=== PATIENT | female | born 1995 | race Caucasian/White ===

== ENCOUNTER → 2020-09-10 15:35 | Outpatient (CLI) | payer BC, SELFPAY ==
--- NOTE | ~2020-09-10 | US_ITS ---
EXAMINATION: US transvaginal DATE: 09/10/2020 15:56 INDICATION: Abnormal uterine bleeding TECHNIQUE: Multiple endovaginal sonographic images of the pelvis were obtained. COMPARISON: None. FINDINGS: The uterus measures 6.6 x 4.1 x 4.8 cm. The endometrial complex measures 7 mm in thickness. The righ t ovary measures 3.5 x 3.4 x 2.2 cm. The left ovary measures 3.4 x 2.0 x 2.7 cm. Several subcentimete r anechoic follicles in both ovaries. There is normal vascular flow in the ovaries. There is no free fluid in the pelvis. IMPRESSION: 1. Several subcentimeter anechoic cysts/follicles in both ovaries suggesting possibility of polycysti c ovarian disease. Reviewed, dictated and finalized at location A. IMPRESSION: 1. Several subcentimeter anechoic cysts/follicles in both ovaries suggesting po ssibility of polycystic ovarian disease.
== END ==
PROVIDERS: Visit Provider Nurse Practitioner
DX: N93.8 Other specified abnormal uterine and vaginal bleeding (principal)
CPT/HCPCS: 76830

== ENCOUNTER → 2021-09-15 13:03 | Outpatient (CLI) | payer BC, SELFPAY ==
--- NOTE | ~2021-09-15 | US_ITS ---
US breast LT complete INDICATION: Palpable left breast lump TECHNIQUE: Dedicated complete left breast ultrasound including all 4 quadrants in the subareolar loca tion COMPARISON: No prior studies for comparison. FINDINGS: The left breast is composed of normal heterogeneous echotexture without focal solid or cyst ic mass. IMPRESSION: 1: Normal left breast ultrasound. BI-RADS CATEGORY 1 - NEGATIVE Reviewed, dictated and finalized at location A.
== END ==
PROVIDERS: PCP Physician Assistant; Visit Provider Physician Assistant
DX: N63.20 Unspecified lump in the left breast, unspecified quadrant (principal)
CPT/HCPCS: 76641

== ENCOUNTER 2024-05-23 05:40 | Emergency (ER) | payer SELFPAY ==
[2024-05-23 05:47] VITALS: BP 164/114; PULSE 107; RESP 18; TEMP 36.5; O2SAT 97
--- NOTE | 2024-05-23 05:51 | ECG_ITS ---
Test Date: 2024-05-23 05:58:34 Measurements Intervals [place] Rate: 99 P: 25 MI: 160 QRS: 22 QRSD: 70 T: 37 QT: 305 QTc: 393 Interpretive Statements SINUS RHYTHM No previous ECG available for comparison Electronically Signed On 05-26-2024 14:55:32 SENIOR PROCUREMENT MANAGER by Sam Shannon M.D.
[2024-05-23 07:19] VITALS: BP 144/95; PULSE 99; RESP 16; TEMP 36.4; O2SAT 99
--- NOTE | 2024-05-23 08:28 | PC.NURSE ---
Pt came up to intake desk stating her pain is gone and she is going to leave. States she will return if has worsening symptoms. Exits ED in NAD.
--- OUTSIDE RECORDS SUMMARY | 2024-05-30 08:28 | XMS_ITS | Encounter Summary ---
Author Organization [facility] Address [address] [place] [address]. [place], [place] [id number] [place] [id number] Care Team Providers Care Drapery Hanger Name Role Phone None, Provider Primary Care Provider Unavaila ble Encounter Details Date Type Department Care Team (Late st Contact Info) Description 04/12/2016 Abstract [facility] [address] [place] [address] Alexi Shepherd, DO [address] [place] [address] [address] Social History Tobacco Use Types Packs/Day Years Used Date Smoking Tobacco: Never Assessed Comments Unknown Sex and Gender Information Value Date Recorded Sex Assigned at Not on file Legal Sex Female 7:01 AM CDT Gender Identity Not on file Sexual Orientation Not on file documented as of this encounter Plan of Treatment Not on file documented as of this encounter Visit Diagnoses Not on filedocumented in this encounter Care Teams Drapery Hanger Relationship Specialty Start Date End Date None, Provider, PCP - General 02/13/19 documented as of this encounter
--- OUTSIDE RECORDS SUMMARY | 2024-05-30 08:28 | XMS_ITS | Encounter Summary ---
Author Organization [facility] Address [address] [place] [address]. [place] [address] Care Team Providers Care Field Talent Qualification Specialist Name Role Phone None, Provider Primary Care Provider Unavaila ble Encounter Details Date Type Department Care Team (Latest Contact Info) Description 09/14/2015 Abstract [facility] , Generic Conversion, Social History Tobacco Use Types Packs/Day Years Used Date Smoking Tobacco: Never Assessed Comments Unknown Sex and Gender Information Value Date Recorded Sex Assigned at Not on file Legal Sex Female 7:01 AM CDT Gender Identity Not on file Sexual Orientation Not on file documented as of this encounter Last Filed Vital Signs Vital Sign Reading Time Taken Comments Blood Pressure 112/66 09/14/2015 1:58 PM CDT Pulse 100 09/14/2015 1:58 PM CDT Temperature - - Respiratory Rate - - Oxygen Saturation - - Inhaled Oxygen Concentration - - Weight 9.979 kg (22 lb) 09/14/2015 1:58 PM CDT Height 165.1 cm (5' 5 ) 09/14/2015 1:58 PM CDT Body Mass Index 3.66 09/14/2015 1:58 PM CDT documented in this encounter Plan of Treatment Not on file documented as of this encounter Visit Diagnoses Not on filedocumented in this encounter Care Teams Field Talent Qualification Specialist Relationship Specialty Start Date End Date None, Provider, PCP - General 02/13/19 documented as of this encounter
--- OUTSIDE RECORDS SUMMARY | 2024-05-30 08:28 | XMS_ITS | Encounter Summary ---
Author Organization [facility] Address [address] [place] [address]. [place], [place] [id number] [place] [address] Care Team Providers Care Development And Housing Director Name Role Phone None, Provider Primary Care Provider Unavaila ble Encounter Details Date Type Department Care Team (Late st Contact Info) Description 03/27/2016 Abstract [facility] [address] [facility] [place], [place] [id number] Mary Lou Perera, MAE [address] [place] [address] Social History Tobacco Use Types Packs/Day Years [...] on filedocumented in this encounter Care Teams Development And Housing Director Relationship Specialty Start Date End Date None, Provider, PCP - General 02/13/19 documented as of this encounter
--- OUTSIDE RECORDS SUMMARY | 2024-05-30 08:28 | XMS_ITS | Referral Summary ---
Author Organization [facility] Address [address] [place] [address] Care Team Providers Care Call Worker Person Name Role Phone Unavailable Primary Care Provider Unavailabl e Source Comments [facility],non-owned Affiliates and Associated Physician Practices is amultiple site organization consisting of ambulatory clinics and hospital sitesin [place], [place], [place] and [place]. This disclosure is being madepursuant to the Care Everywhere program and may not contain all information available regarding this patient. Last updated 18.[facility] Million[facility]1 Allergies Active Allergy Reactions Criticality Noted Date Comments Food 01/31/2016 almonds Active Problems No known active problems Social History Tobacco Use Types Packs/Day Years Used Date Smoking Tobacco: Never Alcohol Use Standard Drinks/Week Comments No 0 (1 standard drink = 0.6 oz pur e alcohol) Sex and Gender Information Value Date Recorded Sex Assigned at Not on file Gender Identity Not on file Sexual Orientation Not on file Last Filed Vital Signs Vital Sign Reading Time Taken Comments Blood Pressure 121/77 02/01/2016 2:43 PM CDT Pulse 97 02/01/2016 2:43 PM CDT Temperature 36.8 ??C (98.3 ??F) 02/01/2016 4:46 PM CD T Respiratory Rate 16 02/01/2016 4:46 PM CDT Oxygen Saturation 98% 02/01/2016 2:43 PM CDT Inhaled Oxygen Concentration - - Weight 93 kg (205 lb) 01/31/2016 7:40 AM CDT Height 162.6 cm (5' 4 ) 01/31/2016 7:40 AM CDT Body Mass Index 35.19 01/31/2016 7:40 AM CDT Functional Status Functional Status Response Date of Assess ment Is person deaf or have serious hearing difficult y? No 01/31/2016 Is person blind or have serious difficulty seein g? No 01/31/2016 Does person have serious dif ficulty walking/climbing stairs? No 01/31/2016 Does person have difficulty dressing/bathing? No 01/31/2016 Does person have difficulty doing errands alone? No 01/31/2016 Cognitive Status Response Date of Assessm ent Does person have difficulty concentrating/remembering/making decisions? No 01/31/2016 Plan of Treatment Not on file
--- OUTSIDE RECORDS SUMMARY | 2024-05-30 08:28 | XMS_ITS | Encounter Summary ---
Author Organization [facility] Address [address] [place] [address]. [place] [address] Care Team Providers Care Health Informatics Advisor Name Role Phone None, Provider Primary Care Provider Arturoa ble Encounter Details Date Type Department Care Team (Latest Contact Info) Description 12/16/2015 Abstract [facility] , Generic Conversion, [...] Sign Reading Time Taken Comments Blood Pressure 126/66 12/16/2015 3:58 PM CDT Pulse - - Temperature - - Respiratory Rate - - Oxygen Saturation - - Inhaled Oxygen Concentration - - Weight 95.7 kg (211 lb) 12/16/2015 3:58 PM CDT Height - - Body Mass Index 35.11 09/14/2015 1:58 PM CDT documented in this encounter Plan of Treatment Not on file documented as of this encounter Visit Diagnoses Not on filedocumented in this encounter Care Teams Health Informatics Advisor Relationship Specialty Start Date End Date None, Provider, PCP - General 02/13/19 documented as of this encounter
--- OUTSIDE RECORDS SUMMARY | 2024-05-30 08:28 | XMS_ITS | Data Portability ---
Author Organization [facility], Main Office Address [address] [place] [address] Assessment No assessment recorded. Plan of Treatment Reminders Order Date Submit Date Provider Last Modified By Organization Details Last Modified Time Details Appointments None recorded. Lab lipid panel, serum 2022 023 [place] [facility], [address], [place], [address], 3 10:21:57 CMP, serum or plasma 2022 023 [facility], [address], [place], [address], 3 10:21:57 Referral None recorded. Procedures None recorded. Surgeries None recorded. Imaging None recorded. Medication Orders atorvastati n 40 mg tablet 2022 023 [facility], [facility], [address], [place], [place], [id number], 3 12:16:52 buspirone 7.5 mg tablet 2022 023 [facility], [facility], [address], [place], [place], [id number], 3 12:16:47 Patient TargetsNo targets recorded. Patient InstructionsNo instructions recorded. Reason for Referral None Reported. Results Created Date Observation Date Name Description Value Unit Range Abnormal Flag Note LastModifiedBy Organization Detail LastModifiedTime 09/16/19 09/16/2021 HEMOG LOBIN A1C hemoglobin A1C 5.5 % 4.8-5. 6 Predi abete s: 5.7 - 6.4 Diabe pretty: >6.4 Glyce ja contr ol for adult s with diabe pretty: <7.0 Not Available [facility] ([facility]) [address] [place], [address], 09/16/2021 08:22:57 09/16/1909/16/2021 T4 AND TSH TSH 1.800 uIU/m L 0.450- 4.500 Not Available [facility] ([facility]) [address] [place], [address], 09/16/2021 08:22:56 09/16/1909/16/2021 T4 AND TSH thyroxine (T4) 7.0 ug/dL 4.5-12 .0 Not Available [facility] ([facility]) [address] [place], [address], 09/16/2021 08:22:56 09/16/19 22 09/16/2021 CMP14 glucose 71 mg/dL 65-99 Not Availabl e [facility] ([facility]) [address] [place], [address], 09/16/2021 08:22:56 09/16/1909/16/2021 CMP14 BUN 12 mg/dL 6-20 Not Available [facility] ([facility]) [address] [place], [address], 09/16/2021 08:22:56 09/16/1909/16/2021 CMP14 creatinine 0.73 mg/dL 0.57-1 .00 Not Available [facility] ([facility]) [address] [place], [address], 09/16/2021 08:22:56 09/16/19 22 09/16/2021 CMP14 eGFR 116 mL/mi n/1.7 3 >59 Not Available [facility] ([facility]) [address] [facility] [place], [address], 09/16/2021 08:22:56 09/16/19 22 09/16/2021 CMP14 BUN/creatini ne ratio 16 9-23 Not Available [facility] ([facility]) [address] [facility] [place], [address], 09/16/2021 08:22:56 09/16/19 22 09/16/2021 CMP14 sodium 139 mmol/ L 134-14 4 Not Available [facility] ([facility]) [address] [facility] [place], [address], 09/16/2021 08:22:56 09/16/19 22 09/16/2021 CMP14 potassium 4.3 mmol/ L 3.5-5. 2 Not Available [facility] ([facility]) [address] [facility] [place], [address], 09/16/2021 08:22:56 09/16/19 22 09/16/2021 CMP14 chloride 102 mmol/ L 96-106 Not Available [facility] ([facility]) [address] [facility] [place], [address], 09/16/2021 08:22:56 09/16/19 22 09/16/2021 CMP14 carbon dioxide, total 22 mmol/ L 20-29 Not Available [facility] ([facility]) [address] [facility] [place], [address], 09/16/2021 08:22:56 09/16/19 22 09/16/2021 CMP14 calcium 9.9 mg/dL 8.7-10 .2 Not Available [facility] ([facility]) [address] [facility] [place], [address], 09/16/2021 08:22:56 09/16/19 22 09/16/2021 CMP14 protein, total 6.9 g/dL 6.0-8. 5 Not Available [facility] ([facility]) [address] [facility], [place], [address], 09/16/2021 08:22:56 09/16/19 22 09/16/2021 CMP14 albumin 4.6 g/dL 3.9-5. 0 Not Available [facility] ([facility]) [address] [facility] [place], [address], 09/16/2021 08:22:56 09/16/19 22 09/16/2021 CMP14 globulin, total 2.3 g/dL 1.5-4. 5 Not Available [facility] ([facility]) [address] [facility], [place], [address], 09/16/2021 08:22:56 09/16/19 22 09/16/2021 CMP14 A/G ratio 2.0 1.2-2. 2 Not Available [facility] ([facility]) [address] [facility] [place], [address], 09/16/2021 08:22:56 09/16/19 22 09/16/2021 CMP14 bilirubin, total <0.2 mg/dL 0.0-1. 2 Not Available [facility] ([facility]) [address] [facility], [place], [address], 09/16/2021 08:22:56 09/16/19 22 09/16/2021 CMP14 alkaline phosphatase 87 IU/L 44-121 Not Available [facility]) [address] [facility], [place], [address], 09/16/2021 08:22:56 09/16/19 22 09/16/2021 CMP14 AST (SGOT) 23 IU/L 0-40 Not Avail able [facility] ([facility]) [address] [facility] [place], [address], 09/16/2021 08:22:56 09/16/19 22 09/16/2021 CMP14 ALT (SGPT) 22 IU/L 0-32 Not Avail able [facility] ([facility]) [address] [place], [address], 09/16/2021 08:22:56 09/16/19 22 09/16/2021 CBC WITH DIFFE RENTI AL/PL ATELE T hemoglobin 12.7 g/dL 11.1-1 5.9 Not Available [facility] ([facility]) [address] [facility], [place], [address], 09/16/2021 08:22:55 09/16/19 22 09/16/2021 CBC WITH DIFFE RENTI AL/PL ATELE T WBC 9.9 x10e3 /uL 3.4-10 .8 Not Available [facility] ([facility]) [address] [facility], [place], [address], 09/16/2021 08:22:55 09/16/19 22 09/16/2021 CBC WITH DIFFE RENTI AL/PL ATELE T RBC 5.08 x10e6 /uL 3.77-5 .28 Not Available [facility] ([facility]) [address] [place], [address], 09/16/2021 08:22:55 09/16/19 22 09/16/2021 CBC WITH DIFFE RENTI AL/PL ATELE T hematocrit 39.0 % 34.0-4 6.6 Not Available [facility] ([facility]) [address] [place], [address], 09/16/2021 08:22:55 09/16/19 22 09/16/2021 CBC WITH DIFFE RENTI AL/PL ATELE T MCV 77 fL 79-97 below low normal Not Available [facility] ([facility]) [address] [place], [address], 09/16/2021 08:22:55 09/16/19 22 09/16/2021 CBC WITH DIFFE RENTI AL/PL ATELE T MCH 25.0 pg 26.6-3 3.0 below low normal Not Available [facility] ([facility]) [address] [place], [address], 09/16/2021 08:22:55 09/16/19 22 09/16/2021 CBC WITH DIFFE RENTI AL/PL ATELE T MCHC 32.6 g/dL 31.5-3 5.7 Not Available [facility] ([facility]) [address] [place], [address], 09/16/2021 08:22:55 09/16/19 22 09/16/2021 CBC WITH DIFFE RENTI AL/PL ATELE T RDW 14.9 % 11.7-1 5.4 Not Available [facility] ([facility]) [address] [place], [address], 09/16/2021 08:22:55 09/16/19 22 09/16/2021 CBC WITH DIFFE RENTI AL/PL ATELE T platelets 405 x10e3 /uL 150-45 0 Not Available [facility] ([facility]) [address] [place], [address], 09/16/2021 08:22:55 09/16/19 22 09/16/2021 CBC WITH DIFFE RENTI AL/PL ATELE T neutrophils 66 % not estab. Not Available [facility] ([facility]) [address] [place], [address], 09/16/2021 08:22:55 09/16/19 22 09/16/2021 CBC WITH DIFFE RENTI AL/PL ATELE T lymphs 27 % not estab. Not Available [facility] ([facility]) [address] [place], [address], 09/16/2021 08:22:55 09/16/19 22 09/16/2021 CBC WITH DIFFE RENTI AL/PL ATELE T monocytes 5 % not estab. Not Available [facility] ([facility]) [address] [facility], [place], [address], 09/16/2021 08:22:55 09/16/19 22 09/16/2021 CBC WITH DIFFE RENTI AL/PL ATELE T eos 1 % not estab. Not Available [facility] ([facility]) [address] [facility], [place], [address], 09/16/2021 08:22:55 09/16/19 22 09/16/2021 CBC WITH DIFFE RENTI AL/PL ATELE T basos 0 % not estab. Not Available [facility] ([facility]) [address] [facility], [place], [address], 09/16/2021 08:22:55 09/16/19 22 09/16/2021 CBC WITH DIFFE RENTI AL/PL ATELE T immature cells schedule announcer Not Available [facility] ([facility]) [address] [place], [address], 09/16/2021 08:22:55 09/16/19 22 09/16/2021 CBC WITH DIFFE RENTI AL/PL ATELE T neutrophils (absolute) 6.5 x10e3 /uL 1.4-7. 0 Not Available [facility] ([facility]) [address] [place], [address], 09/16/2021 08:22:55 09/16/19 22 09/16/2021 CBC WITH DIFFE RENTI AL/PL ATELE T lymphs (absolute) 2.6 x10e3 /uL 0.7-3. 1 Not Available [facility] ([facility]) [address] [place], [address], 09/16/2021 08:22:55 09/16/19 22 09/16/2021 CBC WITH DIFFE RENTI AL/PL ATELE T monocytes(ab solute) 0.5 x10e3 /uL 0.1-0. 9 Not Available [facility] ([facility]) [address] [facility], [place], [address], 09/16/2021 08:22:55 09/16/19 22 09/16/2021 CBC WITH DIFFE RENTI AL/PL ATELE T eos (absolute) 0.1 x10e3 /uL 0.0-0. 4 Not Available [facility] ([facility]) [address] [facility], [place], [address], 09/16/2021 08:22:55 09/16/19 22 09/16/2021 CBC WITH DIFFE RENTI AL/PL ATELE T baso (absolute) 0.0 x10e3 /uL 0.0-0. 2 Not Available [facility] ([facility]) [address] [facility], [place], [address], 09/16/2021 08:22:55 09/16/19 22 09/16/2021 CBC WITH DIFFE RENTI AL/PL ATELE T immature granulocytes 1 % not estab. Not Available [facility] ([facility]) [address] [facility], [place], [address], 09/16/2021 08:22:55 09/16/19 22 09/16/2021 CBC WITH DIFFE RENTI AL/PL ATELE T immature grans (abs) 0.1 x10e3 /uL 0.0-0. 1 Not Available [facility] ([facility]) [address] [facility], [place], [address], 09/16/2021 08:22:55 09/16/19 22 09/16/2021 CBC WITH DIFFE RENTI AL/PL ATELE T NRBC schedule announcer Not Available [facility] ([facility]) [address] [facility], [place], [address], 09/16/2021 08:22:55 09/16/19 22 09/16/2021 CBC WITH DIFFE RENTI AL/PL ATELE T hematology comments: schedule announcer Not Available [facility] ([facility]) [address] [facility], [place], [address], 09/16/2021 08:22:55 09/16/19 22 09/16/2021 LP+LD L DIREC T+DLD L/HDL RATIO HDL cholesterol 40 mg/dL >39 Not Available [facility] ([facility]) [address] [place], [address], 09/16/2021 08:22:54 09/16/19 22 09/16/2021 LP+LD L DIREC T+DLD L/HDL RATIO cholesterol, total 276 mg/dL 100-19 9 above high normal Not Available [facility] ([facility]) [address] [place], [address], 09/16/2021 08:22:54 09/16/19 22 09/16/2021 LP+LD L DIREC T+DLD L/HDL RATIO triglyceride s 188 mg/dL 0-149 above high normal Not Available [facility] ([facility]) [address] [place], [address], 09/16/2021 08:22:54 09/16/19 22 09/16/2021 LP+LD L DIREC T+DLD L/HDL RATIO VLDL cholesterol danica 36 mg/dL 5-40 Not Available [facility] ([facility]) [address] [place], [address], 09/16/2021 08:22:54 09/16/19 22 09/16/2021 LP+LD L DIREC T+DLD L/HDL RATIO LDL chol calc ([facility]) 200 mg/dL 0-99 above high normal Not Available [facility] ([facility]) [address] [place], [address], 09/16/2021 08:22:54 09/16/19 22 09/16/2021 LP+LD L DIREC T+DLD L/HDL RATIO comment: commen t Possi ble Famil ial Hyper jessica stero lemia . FH shoul d be suspe cted when fasti ng LDL jessica stero l is above 189 mg/dL or non-H DL jessica stero l is above 219 mg/dL . A famil y histo ry of high jessica stero l and heart disea se in 1st degre e relat scotty fabio meza be colle cted. J Clin Lipid ol 2011; 5:133 -140 Not Available [facility] ([facility]) [address] [facility], [place], [address], 09/16/2021 08:22:54 09/16/19 22 09/16/2021 LP+LD L DIREC T+DLD L/HDL RATIO LDL chol. (direct) 195 mg/dL 0-99 above high normal Not Available [facility] ([facility]) [address] [facility], [place], [address], 09/16/2021 08:22:54 09/16/19 22 09/16/2021 LP+LD L DIREC T+DLD L/HDL RATIO LDL (dir.)/HDL ratio 4.9 ratio 0.0-3. 2 above high normal LDL/H DL Men Women 1/2 Avg.R isk 1.0 1.5 Avg.R isk 3.6 3.2 2X Avg.R isk 6.3 5.0 3X Avg.R isk 8.0 6.1 Not Available [facility] ([facility]) [address] [place], [address], 09/16/2021 08:22:54 09/21/1909/15/2021 US, bret schuster No observ ation record ed. [id number] [facility] [address], [place], [address], 07/19/2022 23:38:21 Result Notes None recorded. Problems Name Problem SNOMED Code Status Onset Date Resolution Date Notes Provider Name and Address Organization Details Recorded Time Generalized anxiety disorder 35130797 Active 2021 Not Available [facility] 03/01/202 3 23:37:05 Mixed hyperlipidemi a 491335713 Active 2021 Not Available [facility] 3 23:37:05 Dog bite of lower leg 251484984 Active 2021 Not Available [facility] 3 23:37:05 Candidiasis of skin 51036276 Active 2021 Not Available [facility] 3 23:37:05 Pityriasis versicolor 23886891 Active 2021 Not Available [facility] 3 23:37:05 Breast lump 36503979 Active 2021 Not Available [facility] 3 23:37:05 Streptococcal sore throat 64804557 Active 2022 ELISABET Genao [address] [facility] [address], [place], [address] , [employer] 3 10:41:11 Polycystic ovary syndrome 401498291 Active 2022 ELISABET Genao [address], [place] [address], [place], [address] , [employer] 3 12:01:42 Acute urinary tract infection 155173035 Active 2022 ELISABET Genao [address] [facility] [address], [place], [address] , [employer] 3 16:24:21 Problem Notes None recorded. Procedures Surgical History Date Name Laterality Status Provider Name and Address Organization Details Recorded Time Appendectomy completed Not Available [facility] 23:35:50 Tonsillectomy completed Not Available [facility] 07/19/2022 23:35:50 Imaging Results Imaging Date Name Status LastModified by Organiz [facility] Details LastModified Time 09/15/2021 US, breast, unilateral completed [id number] [facility] [address], [place], [address], 07/19/2022 23:38:21 Procedure Notes None recorded. Medical Equipment None Reported. Allergies Allergen ID Allergen Name Allergen Category Reaction Reaction Severity Criticality Documentation Date Start Date Code Code System Note Provider Name and Address Organization Details Recorded Time 47026 almond allergeni c extract food Not available Not available Not available 07/19/2022 35699 7 RxNorm Not Available [facility] 3 23:38:11 Medications Name Sig Start Date Stop Date Status Note LastModified by Organization Details LastModified Time atorvastati n 40 mg tablet Take 1 tablet every day by oral route. active Not Available Not Available No t Available atorvastati n 20 mg tablet Take 1 tablet every day by oral route at bedtime. 10/31 completed Not Available Not Available Not Available ketoconazol e 2 % shampoo 10/31 completed Not Available Not Available Not Available azithromyci n 250 mg tablet TAKE 2 TABLETS (500 MG) BY ORAL ROUTE ONCE DAILY FOR 1 DAY THEN 1 TABLET (250 MG) BY ORAL ROUTE ONCE DAILY FOR 4 DAYS 10/30 completed Not Available Not Available Not Available ciprofloxac in 500 mg tablet Take 1 tablet every 12 hours by oral route. 05/01 completed Not Available Not Available Not Available erythromyci n 5 mg/gram (0.5 %) eye ointment APPLY 1 CM RIBBON INTO THE LOWER CONJUNCTI TRICIA SAC(S) IN THE AFFECTED EYE(S) BY OPHTHALMI C ROUTE 3 TIMES PER DAY active Not Available Not Available No t Available sertraline 25 mg tablet Take 1 tablet every day by oral route. active Not Available Not Available No t Available buspirone 7.5 mg tablet Take 1 tablet twice a day by oral route. active Not Available Not Available No t Available nystatin 100,000 unit/gram topical powder APPLY TO THE bilateral axilla BY TOPICAL ROUTE 2 TIMES PER DAY PRN 05/01 completed Not Available Not Available Not Available norethindro ne (contracept liborio) 0.35 mg tablet active Not Available Not Available No t Available cefdinir 300 mg capsule 05/01 completed Not Available Not Available Not Available metformin ER 500 mg tablet,exte nded release 24 hr 2 tabs BID active Not Available Not Available No t Available sertraline 50 mg tablet Take 1 tablet every day by oral route. 10/31 completed Not Available Not Available Not Available amoxicillin 875 mg-potassiu m clavulanate 125 mg tablet active Not Available Not Available Not Available Vitals Date Recorded Body mass index (BMI) Body height Oxygen saturation Oxygen saturation in Arterial blood by Pulse oximetry Heart rate Body temperature Body weight Systolic blood pressure Diastolic blood pressure Provider Name and Address Organization Details Last Updated DateTime 1 42.9 kg/m2 165.1 cm 98 % 98 % 100 /min 97.2 [degF] 474189. 11 g 120 mm[Hg] 80 mm[Hg] Not Available [facility] 3 23:36:44 Date Recorded Body mass index (BMI) Body height Oxygen saturation Oxygen saturation in Arterial blood by Pulse oximetry Heart rate Respiratory rate Body temperature Body weight Systolic blood pressure Diastolic blood pressure Provider Name and Address Organization Details Last Updated DateTime 2 42 kg/m2 165.1 cm 98 % 98 % 96 /min 16 /min 97.2 [degF] 188439. 71 g 118 mm[Hg] 78 mm[Hg] Not Available [facility] 3 23:36:44 Date Recorded Body mass index (BMI) Body height Oxygen saturation Oxygen saturation in Arterial blood by Pulse oximetry Heart rate Body temperature Body weight Systolic blood pressure Diastolic blood pressure Provider Name and Address Organization Details Last Updated DateTime 2 40.3 kg/m2 165.1 cm 97 % 97 % 79.99 /min 97.6 [degF] 291499. 35 g 120 mm[Hg] 80 mm[Hg] Not Available [facility] 3 23:36:44 Date Recorded Body height Body temperature Body mass index (BMI) Body weight Respiratory rate Oxygen saturation Oxygen saturation in Arterial blood by Pulse oximetry Heart rate Systolic blood pressure Diastolic blood pressure Provider Name and Address Organization Details Last Updated DateTime 3 165.1 cm 97.9 [degF] 42.6 kg/m2 681914. 65 g 16 /min 97 % 97 % 73 /min 128 mm[Hg] 78 mm[Hg] AUGUSTO Dos Santos [place] - [facility] [place] [employer] [facility] 3 11:57:02 Social History Question Answer Notes LastModified by Organizat ion Details LastModified Time Tobacco Smoking Status Never Smoker Not Available [facility] 07/19/2022 23:35:39 Do You Have An Advance Directive? No [id number] 2021 Information not available 07/19/2022 What Is Your Level Of Alcohol Consumption? Occasional [id number] Information not available 07/19/2022 If You Are , What Was Your Level Of Alcohol Consumption Prior To ? None [id number] Information not available 07/19/2022 Do You Wear A Helmet When Biking? Yes [id number].123314 5481 Information not available 07/19/2022 What Is Your Level Of Caffeine Consumption? Moderate [id number].[id number] 4433 Information not available 07/19/2022 In The 14 Days Before Symptom Onset, Have You Had Close Contact With A Laboratory-confir med COVID-19 While That Case Was Ill? No [id number].[id number] 7538 Information not available 07/19/2022 In The 14 Days Before Symptom Onset, Have You Had Close Contact With A Person Who Is Under Investigation For COVID-19 While That Person Was Ill? No [id number] 0435 Information not available 07/19/2022 Are You Currently Employed? Yes [email or web address] Information not available 08/07/2022 What Type Of Diet Are You Following? REGULAR [id number].[id number] 0836 Information not available 07/19/2022 What Is The Highest Grade Or Level Of School You Have Completed Or The Highest Degree You Have Received? [id number].995875 6502 Information not available 07/19/2022 What Is Your Occupation? Self Employed MIGRATION.091449 9972 Information not available 07/19/2022 Have There Been Any Changes To Your Family Or Social Situation? Yes [id number].[id number] Information not available 07/19/2022 Are There Any Guns Present In Your Home? No MIGRATION.417035 5447 Information not available 07/19/2022 Do You Use Insect Repellent Routinely? No [id number].[id number] 5627 Information not available 07/19/2022 Do You Have A Medical Power Of Water Jet Operator? No MIGRATION.257329 4044 Information not available 07/19/2022 Have You Ever Been Counseled For Unhealthy Alcohol Use? No MIGRATION.079273 2607 Information not available 07/19/2022 Do You Have Any Pets? Yes MIGRATION.060594 5300 Information not available 07/19/2022 What Is Your Relationship Status? [email or web address] Information not available 10/31/2022 Do You Use Your Seat Belt Or Car Seat Routinely? Yes MIGRATION.332185 8497 Information not available 07/19/2022 Do You Have Smoke And Carbon Monoxide Detectors In Your Home? Yes MIGRATION.489167 7167 Information not available 07/19/2022 Are You Passively Exposed To Smoke? No MIGRATION.880500 5700 Information not available 07/19/2022 Are There Any Smokers In Your House? No MIGRATION.324444 9824 Information not available 07/19/2022 Do You Feel Stressed (tense, Restless, Nervous, Or Anxious, Or Unable To Sleep At Night)? [id number] MIGRATION.342895 5248 Information not available 07/19/2022 Do You Use Any Illicit Or Recreational Drugs? No MIGRATION.546695 9195 Information not available 07/19/2022 Do You Use Sunscreen Routinely? Yes MIGRATION.609339 8543 Information not available 07/19/2022 Has Tobacco Cessation Counseling Been Provided? No MIGRATION.329198 5212 Information not available 07/19/2022 Have You Recently Traveled Abroad? No MIGRATION.093206 4529 Information not available 07/19/2022 Do You Have Any Dietary Restrictions? No MIGRATION.112869 7814 Information not available 07/19/2022 Do You Or Have You Ever Used Any Other Forms Of Tobacco Or Nicotine? No MIGRATION.184035 0710 Information not available 07/19/2022 Sex: Female Functional Status Question Answer Note LastModified by Organizat ion Details LastModified Time What is your exercise level? Moderate walks 4-6 times a week [id number].[id number] 026 Information not available 07/19/2022 Mental Status None recorded. Family History Relationship Description Onset Age of this Age Resolved Age Notes LastModified by Organization Details LastModified Time Brother Hyperlipidem ia [id number] [id number] Not available 07/19/2022 23:35:53 Brother Family history of Allergy [id number] [id number] Not available 07/19/2022 23:35:53 Brother Factor V Leiden mutation MIGRATION.108 [id number] Not available 07/19/2022 23:35:53 Mother Hyperlipidem ia MIGRATION.171 [id number] Not available 07/19/2022 23:35:53 Mother Depressive disorder [id number] [id number] Not available 07/19/2022 23:35:53 Mother History of disorder of vision MIGRATION.199 [id number] Not available 07/19/2022 23:35:53 Unspecified Relation Hyperlipidem ia Patern al grandp arent MIGRATION.946 [id number] Not available 07/19/2022 23:35:53 Unspecified Relation Hyperlipidem ia Matern al grandp arent MIGRATION.086 [id number] Not available 07/19/2022 23:35:53 Unspecified Relation Depressive disorder Matern al grandp arent MIGRATION.724 [id number] Not available 07/19/2022 23:35:53 Unspecified Relation Family history of malignant neoplasm matern al grandp arent MIGRATION.008 [id number] Not available 07/19/2022 23:35:53 Unspecified Relation Diabetes mellitus Patern al grandp arents MIGRATION.295 [id number] Not available 07/19/2022 23:35:53 Father Hypertensive disorder [id number] Not available 07/19/2022 23:35:53 Father Body weight problem [id number] Not available 07/19/2022 23:35:53 Medical History Condition Response SKIN PROBLEMS Y OBESITY Y ANXIETY DISORDER Y DEPRESSION (INCLUDING POST ) Y BOWEL PROBLEMS Y Gynecological History Statement/Question Response Abnormal Pap N Date of Last Mammogram Date of Last Colonoscopy Most Recent Bone Density Date of LMP 01/10/2021 Sexually Active? Y Menses Monthly N Date of Last Pap 09/24/2020 Current Control Method BCPs Obstetrics History GPAL:G 5 P 0 0 4 1 Type Value Induced 2 Spontaneous 2 Living 1 Total 5 Past Encounters Encounter ID Performer Location Encounter Start Date Encounter Closed Date Diagnosis/Indication Diagnosis SNOMED-CT Code Diagnosis ICD10 Code Diagnosis Note [id number] [facility] [address] [place] [address] 02/07/2021 00:00:00 02/16/2021 21:42:09 [id number] [facility] [address] [place] [address] 09/07/2021 00:00:00 09/17/2021 21:55:58 [id number] [facility] [address] [place] [address] 11/24/2021 00:00:00 12/18/2021 19:35:39 [id number] [facility] [address] [place] [address] 10/31/2022 11:50:55 10/31/2022 12:25:30 Mixed hyperlipidemia 337662582 E78.2 start atorvastat in 40mg daily and repeat labs in jan. Generalize d anxiety disorder 11137647 F41.1 start buspar 7.5mg bid. Adult heal th examination 819137171 Z00.01 well exam completed Long-term drug therapy 884113730 Z79.899 Polycystic ovary syndrome 713606337 E28.2 hx noted. Health Concerns Section Related Observation LastModified by Organization Detai ls LastModified Time None Recorded Concern Status LastModified by Organization Details LastModified Time None Recorded Advance Directives Directive N: Payers Encounter Date Sequence Insurance Name Policy Number Policy Mullins Covered Member ID Mullins Member ID Guarantor Name 10/31/2022 1 [facility] [id number] Albert Garcia [id number] Chantale Bharti Garcia Notes Date Note Type Note Provider Name and Address Organization Details Recorded Time 02/08/20 21 text/htm l Adult ADHDReported bypatient.ADHD Quality:unable to concentrate;impulsive;hyperacti ve Timing of Symptoms:more than half the time; worse in the morning; worse in the afternoon ADHD Duration:last 2 years ADHD Context:increased productivity at work; less depression; no financial problems;increased anxiety;unnecessary arguments;ongoing cognitive distortions;unable to set limits with obligations;dysfunction in family ADHD Severity:moderate ADHD Associated Symptoms Inattention:able to pay attention; attention to detail; not bored easily;poorly organized;makes careless mistakes;easily distracted;forgetful;difficulty focusing;daydreaming;easily confused;difficulty processing information;difficulty following instructions ADHD Associated Symptoms Impulsivity:patient;interrupts conversations/activities;blurts out inappropriate comments;shows emotion without restraint ADHD Associated Symptoms Hyperactivity:no difficulty with quiet tasks/activities;fidgets/squirm s;excessive talking;runs/moves in inappropriate situations;constantly in motionAnxiety, Generalized DisorderReported bypatient.Onset/Timing:years Severity:moderate Context:life stressors Associated Symptoms:difficulty concentrating;difficulty controlling worry;excess anxiety;restlessness Not Available [facility] [employer] [facility] 02/16/2021 21:42:09 09/08/19 22 text/htm l Anxiety/DepressionReported bypatient.Quality:symptoms worse in the evening(depression);symptoms worse during the day(anxiety) Severity:denies suicidal ideations; able to maintain relationships;interference with household activities;interference with sleep;interference with work Duration:symptoms lasting over 2 weeks Onset/Timing:still present Context:major life stressors;family problems Modifying Factors:medications as directed Associated Symptoms:denies homicidal ideations; no significant weight gain; no significant weight loss; no visual/auditory hallucinations; no delusions; no shortness of breath; no crying spells; no panic; no isolation; appetite good; energy good; no apathy; maintaining functionality;anxiety;depressio n;insomnia;sleep disturbances Not Available [facility] 09/17/2021 21:55:58 11/25/19 22 text/htm l Anxiety/DepressionReported bypatient.Severity:denies suicidal ideations; able to maintain relationships; does not interfere with activities of daily living Context:no major life stressors Associated Symptoms:denies homicidal ideations; no significant weight gain; no significant weight loss; no visual/auditory hallucinations; no delusions; no shortness of breath; mood good; no anxiety; no crying spells; no panic; no isolation; sleeping well; appetite good; energy good; no apathy; maintaining functionality HyperlipidemiaReported bypatient.Control:usually well controlled; improving; at goal Compliance:compliant; compliant with diet; exercises Complications:no coronary artery disease; no peripheral artery disease; no cardiovascular disease Not Available [facility] [employer] [facility] 12/18/2021 19:35:39 11/01/19 23 text/htm l Anxiety/DepressionReported bypatient.Quality:symptoms worse in the evening Severity:denies suicidal ideations; able to maintain relationships;interference with household activities;interference with sleep;interference with work Duration:symptoms lasting over 2 weeks Onset/Timing:still present Context:major life stressors Modifying Factors:stopped the med. Associated Symptoms:denies homicidal ideations; no significant weight gain; no significant weight loss; no visual/auditory hallucinations; no delusions; no shortness of breathHyperlipidemiaReported bypatient.Duration:chronic Control:usually well controlled Current Therapy:currently taking: (atorvastatin 20mg) Compliance:compliant; compliant with diet;does not exercise Complications:no coronary artery disease; no peripheral artery disease; no cardiovascular disease wellness [facility] [address] [facility] [facility] [address], [place], [address], [facility] [employer] [facility] 11/17/2022 23:01:23 OBGyn Episode No OBEpisode recorded.
--- OUTSIDE RECORDS SUMMARY | 2024-05-30 08:28 | XMS_ITS | Encounter Summary ---
Author Organization [facility] Address [address] [facility] [place] [address] Care Team Providers Care Evaluation Assistant Name Role Phone Unavailable Primary Care Provider Unavailabl e Reason for Visit * Reason Comments Pain Back * Auth/Cert Specialty Diagnoses / Procedures Referred By Kofi t Referred To Contact Referral ID Status Reason Start Date Expiration Date Visits Re quested Visits Authorized [id number] 1 1 Encounter Details Date Type Department Care Team (Latest Contact Info) Description 01/31/2016 6:39 AM CDT - 02/01/2016 4:52 PM CDT Hospital Encounter [facility] [address] [phone] [place] [address] [facility] [address] [place] [address] Obstetrics Discharge Disposition: Home or Self Care Social History Tobacco Use Types Packs/Day Years Used Date Smoking Tobacco: Never Alcohol Use Standard Drinks/Week Comments No 0 (1 standard drink = 0.6 oz pur e alcohol) Comments Yes Sex and Gender Information Value Date Recorded [...] Mass Index 35.19 01/31/2016 7:40 AM CDT documented in this encounter Functional Status Functional Status Response Date of [...] person have difficulty concentrating/remembering/making decisions? No 01/31/2016 documented as of this encounter Discharge Instructions * Discharge Instructions* Moriah Márquez RN - 02/01/2016 4:48 PM CDT UNDELIVERED PATIENT DISCHARGE INSTRUCTIONS CALL YOUR DOCTOR (SEE NUMBER BELOW) ?? If you are less than 37 weeks and have move than 5 contractions an hour. ?? Blurring ofvision or spots before your eyes. ?? Ruptured membranes or leakage of vaginal fluid. ?? May be a steady trickle or large gush ?? May be clear, yellow, pink or green ?? Decreased movement--if your baby has stopped movingor is moving less than it normally does. Do Kick Counts as instructed. ?? Vaginal bleeding--bright red bleeding and/or clots needs medical care immediately. ?? Any temperature above 100 degrees. ?? Headache ?? Any burning or painful urination. ?? Increased swelling in your face, hands, or feet. ?? Stomach pains, cramps, nausea,or diarrhea. documented in this encounter Medications at Time of Discharge Medication Sig Dispensed Refills Start Date End Date cephALEXin (KEFLEX) 500 MG capsule Take 1 Cap by mouth 4 times daily for 7 days 28 Cap 0 02/01/2016 02/08/2016 documented as of this encounter Progress Notes * Wes Hair MD (Guy) - 02/01/2016 5:00 PM CDT OB Antepartum Testing Note 02/01/2016 5:00 PM Chantale Garcia Pt here for: Pyelonephritis Subjective: 2, Para None filed, 1, Estimated Date of Delivery: 04/23/16 Gestational Age 45w6d Objective: BP 121/77 mmHg Pulse 97 Temp(Src) 98.3 ??F Resp 16 Wt 205 lb (92.987 kg) BMI 35.17 kg/m2 Assessment: Antepartum Testing: non-stress test (chauhan): baseline rate 145, variability: moderate, no decelerations present, reactive Plan: Continue current management per Dr Marcio Salinas) MD Laxmi * Lisa Buckley MD - 02/01/2016 4:42 PM CDT Chantale is feeling much better. Pain improved, no further nausea. No contractions, good FM. Vitals: 02/01/16 0235 02/01/16 0711 02/01/16 0713 02/01/16 1443 BP: 125/71 121/77 Pulse: 104 97 Temp: 98.8 ??F 97.8 ??F 97.6 ??F Resp: 16 16 16 Weight: SpO2: 96% 98% Appears well, sitting up, no distress. Culture actually with 10,000 CFU normal matt, but will send on abx due to high white count. Has appt scheduled already with her OB provider tomorrow. Lisa Buckley MD * Wes Hair MD (Guy) - 02/01/2016 7:48 AM CDT OB Antepartum Testing Note 02/01/2016 7:48 AM Chantale Garcia Pt here for: Pyelonephritis Subjective: 2, Para None filed, 1, Estimated Date of Delivery: 04/23/16 Gestational Age 28w2d Objective: BP 125/71 mmHg Pulse 104 Temp(Src) 97.8 ??F Resp 16 Wt 205 lb (92.987 kg) BMI 35.17 kg/m2 Assessment: Antepartum Testing: non-stress test (chauhan): baseline rate 150, variability: moderate, no decelerations present, reassuring Plan: Continue current management per Dr Marcio Hair MD (Guy) * Moriah Márquez RN - 02/01/2016 7:47 AM CDT Report received from Margaret Huynh RN. All questions answered. Pt placed on monitoring machine [id number]. Baseline heart rate 150 with moderate variability and accelerations. No decelerations noted. No contractions noted, and pt denies feeling any. Reports positive movement and denies any leaking of fluid. Dr Hair strip review at 0740 and patient may be taken off monitoring as strip is a reactive NST. Care to continue.Moriah Márquez RN 1439-pt placed on monitors for NST. Reports positive movement. Denies any ctx or leaking of fluid. Will continue to monitor.Moriah Márquez RN 5618-reactive strip reviewed by Dr Hair. Ok to take patient off the monitor at this time. Pt denies any leaking of fluid at this time and reports positive movement.Moriah Márquez RN * Brown Ricardo MD - 01/31/2016 10:28 PM CDT OB Antepartum Testing Note Subjective: 2, Para None filed, 1, Estimated Date of Delivery: 04/23/16 Gestational Age 28w1d Objective: BP 114/68 mmHg Pulse 90 Temp(Src) 97.6 ??F Resp 20 Wt 205 lb (92.987 kg) BMI 35.17 kg/m2 Assessment: Antepartum Testing: non-stress test (chauhan): baseline rate 145, variability: moderate, accelerations present,reactive, deceleration variable isolated and only once Plan: Discussed with Dr. Buckley. Will follow up with nonstress test in next shift. * Lisa Buckley MD - 01/31/2016 5:55 PM CDT In to see Chantale. Reviewed Dr. Cummings's H&P. Is not really feeling any better than this am. Is still having pain. Some nausea. The fentanyl doeshelp for short times, but does not eliminate the pain. uncomplicated until now. Has been getting care from a nurse special order jeweler at home in [place]. Vitals: 01/31/16 0815 01/31/16 0830 01/31/16 0840 01/31/16 1630 BP: 130/87 Pulse: 82 Temp: 98.6 ??F Resp: Weight: SpO2: 97% 96% 97% 98% Gen: awake, alert, sitting up, does not appear acutely ill or uncomfortable. ABd: soft, gravid Back: Mild L CVA tenderness, although somewhat diffuse. Ext: No CT. No new labs. A/P: 1. IUP at 28 weeks 2. Probable pyelonephritis. Will continue abx. Due to pain, and given gestational age, discussed toradol. Is ok with this, understands that it is for a specific indication at a safe point in the , remote from delivery. 3. Rpt CBC and BMP in am. 4. status reassuring. Lisa Buckley MD * Sal Cummings Jr., MD - 01/31/2016 4:16 PM CDT NST reactive documented in this encounter H&P Notes * Sal Cummings Jr., MD - 01/31/2016 7:00 AM CDT Obstetric History and Physical Exam House OB Note 01/31/2016 Chantale Garcia [id number] Subjective: Chantale Garcia is a 20 y.o. G 2 P None filed A 1 Estimated Date of Delivery: 04/23/16 female at 28w1d weeks gestation. Chief Complaint: She comes to L&D for back pain.. History of Present Illness: This is a constant back pain with radiation to the abdomen. She has a history of urinary tract infection. She has had an appendectomy. Her current obstetrical history is remarkable for Unremarkable is Single. Movement is normal. Objective: BP 134/66 mmHg Pulse 85 Temp(Src) 97.7 ??F Resp 20 Past, Family, and Social History ALLERGIES: Allergies Allergen Reactions ??? Food almonds CURRENT MEDS: No current facility-administered medications on file prior to encounter. No current outpatient prescriptions on file prior to encounter. PAST MEDICAL HISTORY: Past Medical History Diagnosis Date ??? History of UTI ??? Nausea/vomiting in SURGERIES: Past Surgical History Procedure Laterality Date ??? Appendectomy 2012 ??? Tonsillectomy and adenoidectomy 1999 FAMILY HISTORY: No family history on file. SOCIAL HISTORY: History Social History ??? Marital Status: N/A Spouse Name: N/A Number of Children: N/A ??? Years of Education: N/A Occupational History ??? Not on file. Social History Main Topics ??? Smoking status: Never Smoker ??? Smokeless tobacco: Not on file ??? Alcohol Use: No ??? Drug Use: No ??? Sexual Activity: Not on file Other Topics Concern ??? Not on file Social History Narrative ??? No narrative on file Review of Systems: Constitutional: , negative , Eyes: negative, Ears, Nose, mouth, and throat: negative, Respiratory: negative, Cardiovascular: negative:, Gastrointestinal: 'negative , Genitourinary: negative, Skin: negative ,, Breast: negative ,, Hematologic/Lymphatic: negative, Musculoskeletal: negative, Neurological: negative, Behavioral/Psych: negative, Endocrine: negative, Allergic/Immunologic: negative, Physical Exam: General appearance: alert, cooperative, no distress Lungs: breath sounds normal and symmetric; no rales or wheezes, respiratory effort normal Heart: regular rhythm Abdomen: gravid, soft, non-tender, no rebound, good bowel sounds.Back: no CVA tenderness. L EXT; no pain bilaterally, min to mod edema bilaterally Contractions: none Pelvis: External genitalia: normal general appearance Vaginal/Pelvic Support: normal heart tones: 140 BPM. heart variability: moderate, reactive, NST reactive Uterine size: S=D Presentation: Cervix: Dilation: Closed Effacement: Long Station: -2 Consistency: Medium Position: Posterior Membranes: intact Lab Review: GBS: unknown Blood type: O+ Assessment: IUP in a G 2 P None filed A 1 Estimated Date of Delivery: 04/23/16 female at 28w1d weeks gestation. Not in labor. Obstetrical history Unremarkable. Pylonephritis Plan: As per Dr. Hardin. who was notified of the patient's arrival to Labor and Delivery. Pt seen for back pain.. Intervention: CBC, CMP, UA, morphine. Sal Cummings Jr., MD documented in this encounter Plan of Treatment Not on file documented as of this encounter Procedures Procedure Name Priority Date/Time Associated Diagnosis Comments CBC W AUTO DIFFERENTIAL AM Draw 02/01/2016 6:57 AM CDT Pyelonephritis affecting in third trimester (HCC) URINE MICROSCOPIC ONLY REFLEX TO CULTURE Routine 01/31/2016 7:09 AM CDT as incidental finding (HCC) URINALYSIS REFLEX MICROSCOPIC REFLEX CULTURE STAT 01/31/2016 7:09 AM CDT as incidental finding (HCC) CULTURE URINE Routine 01/31/2016 7:09 AM CDT as incidental finding (HCC) DIFFERENTIAL MANUAL Routine 01/31/2016 7 :09 AM CDT as incidental finding (HCC) CBC W AUTO DIFFERENTIAL STAT 01/31/2016 7:09 AM CDT as incidental finding (HCC) COMPREHENSIVE METABOLIC PANEL STAT 01/31/2016 7:09 AM CDT as incidental finding (HCC) documented in this encounter Results * (ABNORMAL) CBC W AUTO DIFFERENTIAL (02/01/2016 6:57 AM CDT) WBC 12.8(H) 4.4 - 10.7 x10E9/L 02/01/2016 7:42 AM CDT [facility] WBC Corrected x10E9/L 02/01/2016 7:42 AM CDT [facility] RBC 3.94 3.80 - 5.20 x10E12/L 02/01/2016 7:42 AM CDT [facility] Hemoglobin 10.7(L) 12.0 - 15.6 gm/dL 02/01/2016 7:42 AM CDT [facility] Hematocrit 31.3(L) 35.9 - 45.5 % 02/01/2016 7:42 AM CDT [facility] MCV 79.4(L) 80.7 - 98.3 fl 02/01/2016 7:42 AM CDT [facility] MCH 27.2 26.7 - 34.0 pg 02/01/2016 7:42 AM CDT [facility] MCHC 34.2 30.8 - 35.9 gm/dL 02/01/2016 7:42 [facility] Platelet Count 286 153 - 416 x10E9/L 02/01/2016 7:42 AM CDT [facility] RDW-CV 14.7 12.1 - 14.9 % 02/01/2016 7:42 AM CDT [facility] MPV 9.4 9.4 - 12.9 fl 02/01/2016 7:42 [facility] Neutrophils % 70.8 44.0 - 73.0 % 02/01/2016 7:42 AM CDT [facility] Lymphocytes % 16.8(L) 20.0 - 43.0 % 02/01/2016 7:42 AM CDT [facility] Monocytes % 7.2 5.0 - 13.0 % 02/01/2016 7:42 AM CDT [facility] Eosinophils % 0.4 0.0 - 6.0 % 02/01/2016 7:42 AM CDT [facility] Basophils % 0.3 0.0 - 2.0 % 02/01/2016 7:42 AM CDT [facility] Immature Granulocytes 4.5(H) 0 - 1 % 02/01/2016 7:42 AM CDT [facility] Neutrophil Absolute 9.06(H) 2.01 - 7.14 x10E9/L 02/01/2016 7:42 AM CDT [facility] Lymphocytes Absolute 2.15 1.07 - 3.94 x10E9/L 02/01/2016 7:42 AM CDT [facility] Monocytes Absolute 0.92 0.26 - 1.07 x10E9/L 02/01/2016 7:42 AM CDT [facility] Eosinophils Absolute 0.05 0 - 0.47 x10E9/L 02/01/2016 7:42 AM CDT [facility] Basophils Absolute 0.04 0 - 0.08 x10E9/L 02/01/2016 7:42 AM [facility] Immature Granulocytes Absolute 0.57(H) 0.00 - 0.06 x10E9/L 02/01/2016 7:42 AM [facility] nRBC Auto 0 /100 WBC 02/01/2016 7:42 AM CDT [facility] Blood BLOOD SPECIMEN / Unknown Lab Venipuncture / Unknown 02/01/2016 6:57 AM CDT 02/01/2016 7:38 AM CDT Lisa Buckley MD LAB - HEMATOLOGY ORD ERABLES [facility] [address] [place] [address] * CULTURE URINE (01/31/2016 7:09 AM CDT) Culture <10,000 CFU/mL urogenital matt JIE 02/01/2016 12:[address] [facility] Urine URINE SPECIMEN OBTAINED BY CLEAN CATCH PROCEDURE / Unknown 01/31/2016 7:09 AM CDT 01/31/2016 7:12 AM CDT Sal Cummings Jr., MD LAB - MICROBIOL OGY ORDERABLES [facility] [address] [place] [id number] [phone] * (ABNORMAL) URINALYSIS MICROSCOPIC ONLY W/REFLEX CULTURE (01/31/2016 7:09 AM CDT) Bacteria UA 4+(A) None Seen 01/31/2016 8:47 AM CDT [facility] Epithelial Cell UA 10-20(A) 0-2, 2-5 # /hpf 01/31/2016 8:47 AM CDT [facility] Calcium Oxalate Crystals 2+(A) None Seen 01/31/2016 8:47 AM T [facility] Urine URINE SPECIMEN OBTAINED BY CLEAN CATCH PROCEDURE / Unknown 01/31/2016 7:09 AM CDT 01/31/2016 7:12 AM CDT Sal Cummings Jr., MD LAB - URINALYSI S ORDERABLES [facility] [address] [place] [address] * (ABNORMAL) DIFFERENTIAL MANUAL (01/31/2016 7:09 AM CDT) Pathologist [facility] WBC Auto 16.6 x10E9/L 01/31/2016 10:57 AM [facility] WBC Corrected 4.4 - 10.7 x10E9/L 01/31/2016 10:57 AM [facility] nRBC /100 WBC 01/31/2016 10:57 AM [facility] Neutrophil % Manual 81(H) 44 - 73 % 01/31/2016 10:57 AM [facility] Lymphocytes % Manual 11(L) 20 - 43 % 01/31/2016 10:57 AM [facility] Monocytes % Manual 4(L) 5 - 13 % 01/31/2016 10:57 AM [facility] Band % Manual 2 0 - 11 % 01/31/2016 10:57 AM [facility] [place] Manual 2(H) <=0 % 01/31/2016 10:57 AM [facility] Cells Counted 100 # cells 01/31/2016 10:57 AM [facility] RBC Morphology Normal 01/31/2016 10:57 AM [facility] WBC Morph Normal 01/31/2016 10:57 AM [facility] Platelet Estimation Normal 01/31/2016 10:57 AM [facility] Blood BLOOD SPECIMEN / Unknown 01/31/2016 7:09 AM CDT 01/31/2016 7:22 AM CDT Sal Cummings Jr., MD LAB - HEMATOLOG Y ORDERABLES [facility] [address] [place] [address] * (ABNORMAL) URINALYSIS ROUTINE W/REFLEX TO CULTURE (01/31/2016 7:09 AM CDT) Color UA Dark Yellow Straw, Yellow, Dark Yellow 01/31/2016 7:41 AM [facility] Clarity UA Turbid 01/31/2016 7:41 AM [facility] Specific Stebbins UA >1.030(H) 1.005 - 1.030 01/31/2016 7:41 AM [facility] pH UA 6.0 5.0 - 8.0 pH 01/31/2016 7:41 AM [facility] Protein UA 2+(A) Negative 01/31/2016 7:41 AM [facility] Blood UA Negative Negative 01/31/2016 7:41 AM [facility] Leukocyte UA 2+(A) Negative 01/31/2016 7:41 AM [facility] Nitrite UA Negative Negative 01/31/2016 7:41 AM [facility] Glucose UA Negative Negative 01/31/2016 7:41 AM [facility] Ketone UA Trace(A) Negative 01/31/2016 7:41 AM [facility] Bilirubin UA Negative Negative 01/31/2016 7:41 AM [facility] Urobilinogen UA 1.0 0.1 - 1.0 EU/dL 01/31/2016 7:41 AM [facility] WBC UA Auto >100(A) 0-2, 2-5 # /hpf 01/31/2016 7:41 AM [facility] RBC UA Auto 2-5 0-2, 2-5 # /hpf 01/31/2016 7:41 AM [facility] Epithelial Cell UA Auto 10-20(A) 0-2, 2-5 # /hpf 01/31/2016 7:41 AM [facility] Bacteria UA Auto Reflex to manual(A) None seen 01/31/2016 7:41 AM [facility] Reflex Status Culture to follow 01/31/2016 7:41 AM [facility] Urine URINE SPECIMEN OBTAINED BY CLEAN CATCH PROCEDURE / Unknown 01/31/2016 7:09 AM CDT 01/31/2016 7:12 AM CDT Sal Cummings Jr., MD LAB - URINALYSI S ORDERABLES [facility] [address] [place] [address] * (ABNORMAL) COMPREHENSIVE METABOLIC PANEL (01/31/2016 7:09 AM CDT) Glucose 111(H) 74 - 106 mg/dL 01/31/2016 7:47 AM [facility] Sodium 137 136 - 145 mmol/L 01/31/2016 7:47 AM [facility] Potassium 4.1 3.5 - 5.1 mmol/L 01/31/2016 7:47 AM [facility] Chloride 105 98 - 107 mmol/L 01/31/2016 7:47 AM [facility] CO2 22 22 - 31 mmol/L 01/31/2016 7:47 AM [facility] Calcium 8.9 8.5 - 10.1 mg/dL 01/31/2016 7:47 AM [facility] Anion Gap 10 5 - 20 mmol/L 01/31/2016 7:47 AM [facility] BUN 13 7 - 21 mg/dL 01/31/2016 7:47 AM [facility] Creatinine 0.60 0.50 - 1.30 mg/dL 01/31/2016 7:47 AM [facility] Alkaline Phosphatase 118 38 - 126 U/L 01/31/2016 7:47 AM [facility] ALT 27 13 - 61 U/L 01/31/2016 7:47 AM [facility] Comment:See reference range update AST 15 5 - 40 U/L 01/31/2016 7:47 AM [facility] Protein Total 7.2 6.4 - 8.2 gm/dL 01/31/2016 7:47 AM CDT [facility] Albumin 2.8(L) 3.4 - 5.0 gm/dL 01/31/2016 7:47 AM CDT [facility] Bilirubin Total 0.1(L) 0.2 - 1.0 mg/dL 01/31/2016 7:47 AM CDT [facility] eGFR by MDRD >60 >60 mL/min/1.7 3m2 01/31/2016 7:47 AM CDT [facility] eGFR by MDRD >60 >60 mL/min/1.7 3m2 01/31/2016 7:47 AM CDT [facility] Blood BLOOD SPECIMEN / Unknown 01/31/2016 7:09 AM CDT 01/31/2016 7:22 AM CDT Sal Cummings Jr., MD LAB - CHEMISTRY ORDERABLES [facility] [place] [address] * (ABNORMAL) CBC W AUTO DIFFERENTIAL (01/31/2016 7:09 AM CDT) WBC 16.6(H) 4.4 - 10.7 x10E9/L 01/31/2016 7:28 AM CDT [facility] WBC Corrected x10E9/L 01/31/2016 7:28 AM CDT [facility] RBC 4.79 3.80 - 5.20 x10E12/L 01/31/2016 7:28 AM CDT [facility] Hemoglobin 12.8 12.0 - 15.6 gm/dL 01/31/2016 7:28 AM CDT [facility] Hematocrit 37.6 35.9 - 45.5 % 01/31/2016 7:28 AM CDT [facility] MCV 78.5(L) 80.7 - 98.3 fl 01/31/2016 7:28 AM CDT [facility] MCH 26.7 26.7 - 34.0 pg 01/31/2016 7:28 AM CDT [facility] MCHC 34.0 30.8 - 35.9 gm/dL 01/31/2016 7:28 AM CDT [facility] Platelet Count 323 153 - 416 x10E9/L 01/31/2016 7:28 AM CDT [facility] RDW-CV 14.6 12.1 - 14.9 % 01/31/2016 7:28 AM CDT [facility] MPV 9.0(L) 9.4 - 12.9 fl 01/31/2016 7:28 AM CDT [facility] nRBC Auto 0 /100 WBC 01/31/2016 7:28 AM CDT [facility] Hematology Reflex Status Manual Diff to follow 01/31/2016 7:28 AM CDT [facility] Blood BLOOD SPECIMEN / Unknown 01/31/2016 7:09 AM CDT 01/31/2016 7:22 AM CDT Sal Cummings Jr., MD LAB - HEMATOLOG Y ORDERABLES [facility] [address] [place] [address] documented in this encounter Visit Diagnoses Diagnosis as incidental finding (HCC)- Primary state, incidental Pyelonephritis affecting in third trimester (HCC) documented in this encounter Administered Medications Inactive Administered Medications - up to 3 most recent administrations Medication Order MAR Action Action Date Dose Rate Site ceFAZolin (ANCEF) 2,000 mg in 50 ml IVPB 2,000 mg (2 g), at 100 mL/hr, Intravenous, EVERY 8 HOURS, First dose (after last modification) on Sun01/31/16 at 0930, Until Discontinued $ Given 02/01/2016 9:30 AM CDT 2,000 mg 100 mL/hr $ Given 02/01/2016 1:14 AM CDT 2,000 mg 100 mL/hr $ Given 01/31/2016 5:14 PM CDT 2,000 mg 100 mL/hr fentaNYL (PF) (SUBLIMAZE) injection 50 mcg 50 mcg, Intravenous, EVERY 1 HOUR PRN, Moderate Pain, Starting on Sun01/31/16 at 1208, Until Sun02/01/16 at 1753 $ Given 01/31/2016 3:11 PM CDT 50 mcg $ Given 01/31/2016 1:52 PM CDT 50 mcg $ Given 01/31/2016 12:27 PM CDT 50 mcg ketorolac (TORADOL) injection 30 mg 30 mg, Intravenous, EVERY 6 HOURS, 6 doses, First dose on Sun01/31/16 at 2000, Last dose on Sun02/02/16 at 0200 $ Given 02/01/2016 1:14 PM CDT 30 mg $ Given 02/01/2016 7:12 AM CDT 30 mg $ Given 02/01/2016 1:14 AM CDT 30 mg lactated ringers infusion at 999 mL/hr, Intravenous, ONCE, 1 dose, On Sun01/31/16 at 0715 $ Given 01/31/2016 7:19 AM CDT 999 mL/hr lactated ringers infusion at 200 mL/hr, Intravenous, CONTINUOUS, Starting on Sun01/31/16 at 0730, Until Sun02/01/16 at 1753 $ New Bag/Syringe 02/01/2016 6:49 AM CDT 200 mL/hr $ New Bag/Syringe 01/31/2016 7:35 PM CDT 200 mL /hr $ New Bag/Syringe 01/31/2016 1:55 PM CDT 200 mL /hr morphine injection 3 mg 3 mg, Intravenous, EVERY 4 HOURS PRN, Moderate Pain, Severe Pain, Starting on Sun01/31/16 at 0712, Until Sun01/31/16 at 0841 $ Given 01/31/2016 7:24 AM CDT 3 mg morphine injection 3 mg 3 mg, Intravenous, ONCE, 1 dose, On Sun01/31/16 at 0845 $ Given 01/31/2016 9:11 AM CDT 3 mg oxyCODONE-acetaminophen (PERCOCET) 10-325 MG tablet 1 Tab 1 tablet, Oral, EVERY 4 HOURS PRN, Moderate Pain, Starting on Sun01/31/16 at 0836, Until Sun02/01/16 at 1753 $ Given 01/31/2016 4:26 PM CDT 1 tablet $ Given 01/31/2016 11:41 AM CDT 1 tablet zolpidem (AMBIEN) tablet 5 mg 5 mg, Oral, AT BEDTIME PRN, Insomnia, Starting on Sun01/31/16 at 1804, Until Sun02/01/16 at 1753 $ Given 01/31/2016 9:29 PM CDT 5 mg documented in this encounter Active and Recently Administered Medications Times are shown in CDT. Scheduled Medication Order 01/30/2016 01/31/201602/01/2016 ceFAZolin (ANCEF) 2,000 mg in 50 ml IVPB (CANCELED) 2,000 mg (2 g), at 100 mL/hr, Intravenous, EVERY 8 HOURS, First dose (after last modification) on Sun01/31/16 at 0930, Until Discontinued 0931 ($ Given - Provider: María Pierson RN)1040 (Rx Stopped - Provider: María Pierson RN)1714 ($ Given - Provider: Denisse Lyle RN)1744 (Rx Stopped - Provider: Ina Huynh RN) 0114 ($ Given - Provider: Ina Huynh, GRAEME)0144 (Rx Stopped - Provider: Ina Huynh RN)0930 ($ Given - Provider: Moriah Márquez RN)1000 (Rx Stopped - Provider: Moriah Márquez RN) ketorolac (TORADOL) injection 30 mg (CANCELED) 30 mg, Intravenous, EVERY 6 HOURS, 6 doses, First dose on Sun01/31/16 at 2000, Last dose on Sun02/02/16 at 0200 1930 ($ Given - Provider: Ina Huynh RN) 0114 ($ Given - Provider: Ina Huynh RN)0712 ($ Given - Provider: Moriah Márquez RN)1314 ($ Given - Provider: Moriah Márquez RN) lactated ringers infusion (COMPLETED) at 999 mL/hr, Intravenous, ONCE, 1 dose, On Sun01/31/16 at 0715 0719 ($ Given - Provider: María Pierson RN) morphine injection 3 mg (COMPLETED) 3 mg, Intravenous, ONCE, 1 dose, On Sun01/31/16 at 0845 0911 ($ Given - Provider: María Pierson RN - Comment: Per Marbin Cummings last 1x dose of morphine to give now) Continuous Medication Order 01/30/2016 01/31/2016 02/01/2016 lactated ringers infusion (CANCELED) at 200 mL/hr, Intravenous, CONTINUOUS, Starting on Sun01/31/16 at 0730, Until Sun02/01/16 at 1753 0746 ($ New Bag/Syringe - Provider: María Pierson RN)1354 (Stopped - Provider: María Pierson RN)1355 ($ New Bag/Syringe - Provider: María Pierson RN)1935 ($ New Bag/Syringe - Provider: Ina Huynh, RN) 0649 ($ New Bag/Syringe - Provider: Ina Huynh, RN) PRN Medication Order 01/30/2016 01/31/2016 02/01/2016 fentaNYL (PF) (SUBLIMAZE) injection 50 mcg (CANCELED) 50 mcg, Intravenous, EVERY 1 HOUR PRN, Moderate Pain, Starting on Sun01/31/16 at 1208, Until Sun02/01/16 at 1753 1227 ($ Given - Provider: María Pierson RN)1352 ($ Given - Provider: María Pierson RN)1511 ($ Given - Provider: María Pierson RN) morphine injection 3 mg (CANCELED) 3 mg, Intravenous, EVERY 4 HOURS PRN, Moderate Pain, Severe Pain, Starting on Sun01/31/16 at 0712, Until Sun01/31/16 at 0841 0724 ($ Given - Provider: María Pierson RN) oxyCODONE-acetaminophen (PERCOCET) 10-325 MG tablet 1 Tab (CANCELED) 1 tablet, Oral, EVERY 4 HOURS PRN, Moderate Pain, Starting on Sun01/31/16 at 0836, Until Sun02/01/16 at 1753 1141 ($ Given - Provider: Shilo Lyle RN)1626 ($ Given - Provider: María Pierson RN) zolpidem (AMBIEN) tablet 5 mg (CANCELED) 5 mg, Oral, AT BEDTIME PRN, Insomnia, Starting on Sun01/31/16 at 1804, Until Sun02/01/16 at 1753 2129 ($ Given - Provider: Ina Huynh, GRAEME) documented in this encounter
--- OUTSIDE RECORDS SUMMARY | 2024-05-30 08:28 | XMS_ITS | Clinical Summary ---
Author Organization [facility] Address [address] [place] [address]. [place] [address] Care Team Providers Care Show Host Or Hostess Name Role Phone None, Provider MD Primary Care Provider Unavaila ble Allergies No known active allergies Medications MELOXICAM OR Take by mouth daily as needed. Active Family History Medical History Relation Comments Hyperlipidemia Brother Hypertension Brother Diabetes Father Hypertension Father Cancer Mother Hyperlipidemia Mother Relation Status Comments Brother Father Mother Social History Tobacco Use Types Packs/Day Years Used Date Smoking Tobacco: Never Smokeless Tobacco: Never Alcohol Use Standard Drinks/Week Comments Yes 0 (1 standard drink = 0.6 oz pur e alcohol) occassionally Comments Unknown Sex and Gender Information Value Date Recorded Sex Assigned at Not on file Legal Sex Female 7:01 AM CDT Gender Identity Not on file Sexual Orientation Not on file Last Filed Vital Signs Vital Sign Reading Time Taken Comments Blood Pressure 123/87 02/13/2019 12:00 PM CDT Pulse 84 02/13/2019 12:00 PM CDT Temperature 36.8 ??C (98.3 ??F) 02/13/2019 7:09 AM CD T Respiratory Rate 17 02/13/2019 12:00 PM CDT Oxygen Saturation 97% 02/13/2019 12:00 PM CDT Inhaled Oxygen Concentration - - Weight 108.9 kg (240 lb) 02/13/2019 7:09 AM CDT Height 162.6 cm (5' 4 ) 02/13/2019 7:09 AM CDT Body Mass Index 41.2 02/13/2019 7:09 AM CDT Plan of Treatment Health Maintenance Due Date Last Done Comments Cervical Cancer Screening Pa p Smear (Age 30 to 64) Every 3 Years 1994 Annual Physical 1997 Hepatitis C 02/12/2012 DTaP, Tdap and Td Vaccines ( 1 - Tdap) 2013 Hepatitis B Vaccines (1 of 3 - 19+ 3-dose series) 2013 COVID-19 Vaccine ( - 2023-2 5 season) 2024 Cervical Cancer Screening Pa p with HPV Testing (Age 30 to 64) Every 5 Years 02/12/2024 Cervical Cancer Screening with HPV 02/12/2024 Influenza Adult (#1) 2024 HPV Vaccines Aged Out No longer eligi ble based on patient's age to complete this topic Meningococcal Vaccine Aged Out No earnest keith eligible based on patient's age to complete this topic Pneumococcal Vaccine: Pediat rics (0 to 5 Years) and At-Risk Patients (6 to 64 Years) Aged Out No longer eligible b ased on patient's age to complete this topic RSV Immunizations Under 20 Months Aged Out No longer eligible based on patient's age to complete this topic Insurance Advance Directives Documents on File Type Date Recorded Patient [place] Expl anation Advance Directives and Living Will 04/12/2016 12:00 AM ADVANCED DIRECTIVES Care Teams Show Host Or Hostess Relationship Specialty Start Date End Date None, Provider, PCP - General 02/13/19
--- OUTSIDE RECORDS SUMMARY | 2024-05-30 08:28 | XMS_ITS | Patient Health Summary ---
Author Organization [facility] Address [address] [place] [address] Care Team Providers Care Manager Regulatory Name Role Phone Unavailable Primary Care Provider Unavailabl e Note from [facility],non-owned Affiliates and Associated Physician Practices is amultiple site organization consisting of ambulatory clinics and hospital sitesin [place], [place]. This disclosure is being madepursuant to the Care Everywhere program and may not contain all information available regarding this patient. Last updated 18.[facility] Allergies * Food(almonds) Active Problems No known active problems Social [...] Mass Index 35.19 01/31/2016 7:40 AM CDT Procedures * CBC W AUTO DIFFERENTIAL(Performed 02/01/2016) Performed for Pyelonephritis affecting in third trimester (HCC) * URINE MICROSCOPIC ONLY REFLEX TO CULTURE(Performed 01/31/2016) Performed for as incidental finding (HCC) * DIFFERENTIAL MANUAL(Performed 01/31/2016) Performed for as incidental finding (HCC) * URINALYSIS REFLEX MICROSCOPIC REFLEX CULTURE(Performed 01/31/2016) Performed for as incidental finding (HCC) * COMPREHENSIVE METABOLIC PANEL(Performed 01/31/2016) Performed for as incidental finding (HCC) * CBC W AUTO DIFFERENTIAL(Performed 01/31/2016) Performed for as incidental finding (HCC) * CULTURE URINE(Performed 01/31/2016) Performed for as incidental finding (HCC) Results * (ABNORMAL) CBC W AUTO DIFFERENTIAL (02/01/2016 6:57 AM CDT) Only the most recent of2 resultswithin the time period is included. WBC 12.8(H) 4.4 - 10.7 x10E9/L 02/01/2016 7:42 AM CDT [facility] WBC Corrected x10E9/L 02/01/2016 7:42 AM CDT [facility] RBC 3.94 3.80 - 5.20 x10E12/L 02/01/2016 7:42 AM CDT [facility] Hemoglobin 10.7(L) 12.0 - 15.6 gm/dL 02/01/2016 7:42 AM CDT [facility] Hematocrit 31.3(L) 35.9 - 45.5 % 02/01/2016 7:42 AM CDT [facility] MCV 79.4(L) 80.7 - 98.3 fl 02/01/2016 7:42 AM CDT [facility] MCH 27.2 26.7 - 34.0 pg 02/01/2016 7:42 AM CDT [facility] MCHC 34.2 30.8 - 35.9 gm/dL 02/01/2016 7:42 AM CDT [facility] Platelet Count 286 153 - 416 x10E9/L 02/01/2016 7:42 AM CDT [facility] RDW-CV 14.7 12.1 - 14.9 % 02/01/2016 7:42 AM CDT [facility] MPV 9.4 9.4 - 12.9 fl 02/01/2016 7:42 AM [facility] Neutrophils % 70.8 44.0 - 73.0 % 02/01/2016 7:42 AM [facility] Lymphocytes % 16.8(L) 20.0 - 43.0 % 02/01/2016 7:42 AM [facility] Monocytes % 7.2 5.0 - 13.0 % 02/01/2016 7:42 AM [facility] Eosinophils % 0.4 0.0 - 6.0 % 02/01/2016 7:42 AM [facility] Basophils % 0.3 0.0 - 2.0 % 02/01/2016 7:42 AM [facility] Immature Granulocytes 4.5(H) 0 - 1 % 02/01/2016 7:42 AM [facility] Neutrophil Absolute 9.06(H) 2.01 - 7.14 x10E9/L 02/01/2016 7:42 AM [facility] Lymphocytes Absolute 2.15 1.07 - 3.94 x10E9/L 02/01/2016 7:42 AM [facility] Monocytes Absolute 0.92 0.26 - 1.07 x10E9/L 02/01/2016 7:42 AM [facility] Eosinophils Absolute 0.05 0 - 0.47 x10E9/L 02/01/2016 7:42 AM [facility] Basophils Absolute 0.04 0 - 0.08 x10E9/L 02/01/2016 7:42 AM [facility] Immature Granulocytes Absolute 0.57(H) 0.00 - 0.06 x10E9/L 02/01/2016 7:42 AM [facility] nRBC Auto 0 /100 WBC 02/01/2016 7:42 AM [facility] Blood BLOOD SPECIMEN / Unknown Lab Venipuncture / Unknown 02/01/2016 6:57 AM T 02/01/2016 7:38 AM T Lisa Buckley MD LAB - HEMATOLOGY ORD ERABLES [facility] [address] [place] [address] * (ABNORMAL) URINALYSIS MICROSCOPIC ONLY W/REFLEX CULTURE (01/31/2016 7:09 AM CDT) Bacteria UA 4+(A) None Seen 01/31/2016 8:47 AM CDT [facility] Epithelial Cell UA 10-20(A) 0-2, 2-5 # /hpf 01/31/2016 8:47 AM CDT [facility] Calcium Oxalate Crystals 2+(A) None Seen 01/31/2016 8:47 AM T [facility] Urine URINE SPECIMEN OBTAINED BY CLEAN CATCH PROCEDURE / Unknown 01/31/2016 7:09 AM CDT 01/31/2016 7:12 AM CDT Sal Cummings Jr., MD LAB - URINALYSI S ORDERABLES [facility] [address] [place] [address] * (ABNORMAL) URINALYSIS ROUTINE W/REFLEX TO CULTURE (01/31/2016 7:09 AM CDT) Color UA Dark Yellow Straw, Yellow, Dark Yellow 01/31/2016 7:41 AM T [facility] Clarity UA Turbid 01/31/2016 7:41 AM [facility] Specific [place] UA >1.030(H) 1.005 - 1.030 01/31/2016 7:41 AM [facility] pH UA 6.0 5.0 - 8.0 pH 01/31/2016 7:41 AM [facility] Protein UA 2+(A) Negative 01/31/2016 7:41 AM T [facility] Blood UA Negative Negative 01/31/2016 7:41 AM [facility] Leukocyte UA 2+(A) Negative 01/31/2016 7:41 AM T [facility] Nitrite UA Negative Negative 01/31/2016 7:41 AM [facility] Glucose UA Negative Negative 01/31/2016 7:41 AM [facility] Ketone UA Trace(A) Negative 01/31/2016 7:41 AM [facility] Bilirubin UA Negative Negative 01/31/2016 7:41 AM T [facility] Urobilinogen UA 1.0 0.1 - 1.0 EU/dL 01/31/2016 7:41 AM CDT [facility] WBC UA Auto >100(A) 0-2, 2-5 # /hpf 01/31/2016 7:41 AM CDT [facility] RBC UA Auto 2-5 0-2, 2-5 # /hpf 01/31/2016 7:41 AM CDT [facility] Epithelial Cell UA Auto 10-20(A) 0-2, 2-5 # /hpf 01/31/2016 7:41 AM CDT [facility] Bacteria UA Auto Reflex to manual(A) None seen 01/31/2016 7:41 AM CDT [facility] Reflex Status Culture to follow 01/31/2016 7:41 AM T [facility] Urine URINE SPECIMEN OBTAINED BY CLEAN CATCH PROCEDURE / Unknown 01/31/2016 7:09 AM CDT 01/31/2016 7:12 AM CDT Sal Cummings Jr., MD LAB - URINALYSI S ORDERABLES [facility] [address] [place] [address] * CULTURE URINE (01/31/2016 7:09 AM CDT) Culture <10,000 CFU/mL urogenital matt JIE 02/01/2016 12:16 PM CDT [facility] MICROBIOLOGY Urine URINE SPECIMEN OBTAINED BY CLEAN CATCH PROCEDURE / Unknown 01/31/2016 7:09 AM CDT 01/31/2016 7:12 AM CDT Sal Cummings Jr., MD LAB - MICROBIOL OGY ORDERABLES [facility] MICROBIOLOGY [address] [place] [address], [facility] [phone] * (ABNORMAL) DIFFERENTIAL MANUAL (01/31/2016 7:09 AM CDT) WBC Auto 16.6 x10E9/L 01/31/2016 10:57 AM CDT [facility] WBC Corrected 4.4 - 10.7 x10E9/L 01/31/2016 10:57 AM CDT [facility] nRBC /100 WBC 01/31/2016 10:57 AM CDT [facility] Neutrophil % Manual 81(H) 44 - 73 % 01/31/2016 10:57 AM CDT [facility] Lymphocytes % Manual 11(L) 20 - 43 % 01/31/2016 10:57 AM CDT [facility] Monocytes % Manual 4(L) 5 - 13 % 01/31/2016 10:57 AM CDT [facility] Band % Manual 2 0 - 11 % 01/31/2016 10:57 AM CDT [facility] [place] Manual 2(H) <=0 % 01/31/2016 10:57 AM CDT [facility] Cells Counted 100 # cells 01/31/2016 10:57 AM [facility] RBC Morphology Normal 01/31/2016 10:57 AM [facility] WBC Morph Normal 01/31/2016 10:57 AM [facility] Platelet Estimation Normal 01/31/2016 10:57 AM [facility] Blood BLOOD SPECIMEN / Unknown 01/31/2016 7:09 AM CDT 01/31/2016 7:22 AM CDT Sal Cummings Jr., MD LAB - HEMATOLOG Y ORDERABLES [facility] [address] [place] [place] [address] * (ABNORMAL) COMPREHENSIVE METABOLIC PANEL (01/31/2016 7:09 AM CDT) [facility] Signature Glucose 111(H) 74 - 106 mg/dL 01/31/2016 7:47 AM CDT [facility] Sodium 137 136 - 145 mmol/L 01/31/2016 7:47 AM CDT [facility] Potassium 4.1 3.5 - 5.1 mmol/L 01/31/2016 7:47 AM CDT [facility] Chloride 105 98 - 107 mmol/L 01/31/2016 7:47 AM CDT [facility] CO2 22 22 - 31 mmol/L 01/31/2016 7:47 AM CDT [facility] Calcium 8.9 8.5 - 10.1 mg/dL 01/31/2016 7:47 AM CDT [facility] Anion Gap 10 5 - 20 mmol/L 01/31/2016 7:47 AM CDT [facility] BUN 13 7 - 21 mg/dL 01/31/2016 7:47 AM CDT [facility] Creatinine 0.60 0.50 - 1.30 mg/dL 01/31/2016 7:47 AM CDT [facility] Alkaline Phosphatase 118 38 - 126 U/L 01/31/2016 7:47 AM CDT [facility] ALT 27 13 - 61 U/L 01/31/2016 7:47 AM [facility] Comment:See reference range update AST 15 5 - 40 U/L 01/31/2016 7:47 AM T [facility] Protein Total 7.2 6.4 - 8.2 gm/dL 01/31/2016 7:47 AM CDT [facility] Albumin 2.8(L) 3.4 - 5.0 gm/dL 01/31/2016 7:47 AM [facility] Bilirubin Total 0.1(L) 0.2 - 1.0 mg/dL 01/31/2016 7:47 AM [facility] eGFR by MDRD >60 >60 mL/min/1.7 3m2 01/31/2016 7:47 AM [facility] eGFR by MDRD >60 >60 mL/min/1.7 3m2 01/31/2016 7:47 AM [facility] Blood BLOOD SPECIMEN / Unknown 01/31/2016 7:09 AM CDT 01/31/2016 7:22 AM CDT Sal Cummings Jr., MD LAB - CHEMISTRY ORDERABLES [facility] [address] [place] [place] [address]
--- OUTSIDE RECORDS SUMMARY | 2024-05-30 08:28 | XMS_ITS | Encounter Summary ---
Author Organization [facility] Address [address] [place] [address]. [place] [address] Care Team Providers Care Jackspooler Name Role Phone None, Provider Primary Care Provider Ilana ble Encounter Details Date Type Department Care Team (Latest Contact Info) Description 08/20/2015 Abstract [facility] , Generic Conversion, Social History [...] Sign Reading Time Taken Comments Blood Pressure 128/68 08/20/2015 1:36 PM CDT Urine dip = neg protein, Urine dip = neg protein, Pulse 96 08/20/2015 1:36 PM CDT Urine dip = neg protein, Temperature - - Respiratory Rate - - Oxygen Saturation - - Inhaled Oxygen Concentration - - Weight 103.4 kg (228 lb) 08/20/2015 1:3 6 PM CDT Urine dip = neg protein, Height 166.4 cm (5' 5.5 ) 08/20/2015 1: 36 PM CDT Urine dip = neg protein, Body Mass Index 37.36 08/20/2015 1:36 PM CDT documented in this encounter Plan of Treatment Not on file documented as of this encounter Visit Diagnoses Not on filedocumented in this encounter Care Teams Jackspooler Relationship Specialty Start Date End Date None, Provider, PCP - General 02/13/19 documented as of this encounter
--- OUTSIDE RECORDS SUMMARY | 2024-05-30 08:28 | XMS_ITS | Encounter Summary ---
Author Organization [facility] Address [address] [place] [address]. [place], [place] [address] [place] [id number] Care Team Providers Care Art Instructor Name Role Phone None, Provider Primary Care Provider Unavaila ble Encounter Details Date Type Department Care Team (Late st Contact Info) Description 03/27/2016 Abstract [facility] CONVERSION [address] [place] [address] Mary Lou Perera, STACY [address] [place] [address] Social History Tobacco Use Types [...] on filedocumented in this encounter Care Teams Art Instructor Relationship Specialty Start Date End Date None, Provider, PCP - General 02/13/19 documented as of this encounter
--- OUTSIDE RECORDS SUMMARY | 2024-05-30 08:28 | XMS_ITS | Encounter Summary ---
Author Organization [facility] Address [address] [place] [address]. [place] [address] Care Team Providers Care Food Sales Clerk Name Role Phone None, Provider MD Primary Care Provider Unavaila ble Reason for Visit * Reason Comments Arm Pain Chest Pain Encounter Details Date Type Department Care Team (Late st Contact Info) Description 02/13/2019 7:04 AM CDT - 02/13/2019 1:27 PM CDT Emergency [facility] [place] [address] Antonio Smith MD Arm Pain; Chest Pain Discharge Disposition: Home or Self Care (Routine Discharge) Social History Tobacco Use Types Packs/Day Years [...] Mass Index 41.2 02/13/2019 7:09 AM CDT documented in this encounter Discharge Instructions * Discharge Instructions* Antonio Smith MD - 02/13/2019 11:53 AM CDT Follow up with your primary medical doctor in 1-2 days. Return for worsening symptoms or other problems or concerns. * Attachments The following attachments cannot be sent through Care Everywhere. * Chest Pain That Is Not Caused by the Heart Discharge Instructions (Egyptian) documented in this encounter Medications at Time of Discharge MELOXICAM OR Take by mouth daily as needed. documented as of this encounter ED Notes * Lupe Mendez RN - 02/13/2019 1:26 PM CDT Pt ambulatory to waiting room with d/c paperwork in hands. Verbalized understanding of follow up. No questions at the time of discharge. LUPE MENDEZ RN * Antonio Smith MD - 02/13/2019 7:34 AM CDT Chief Complaint Chief Complaint Patient presents with ??? Arm Pain ??? Chest Pain History of Present Illness This patient presented with chest tightness and right arm pain. The patient awoke this morning at 430 with numbness and burning pressure to her right arm. After that she started to develop shortness of breath and chest tightness. Her right arm pain was constant on onset but now is become off and on. The patient had nausea associated with this but no vomiting. She has had no cough. The patient hasnot had the symptoms before. Medical History ALLERGIES: No Known Allergies MEDICATIONS: Prior to Admission medications Medication Sig Start Date End Date Taking? Authorizing Provider MELOXICAM OR Take by mouth daily as needed. Yes Doc Abstract PAST MEDICAL HISTORY: Past Medical History: Diagnosis Date ??? Anxiety 02/13/2019 PAST SURGICAL HISTORY: Past Surgical History: Procedure Laterality Date ??? APPENDECTOMY 2011 ??? TONSILLECTOMY FAMILY HISTORY: Family History Problem Relation Name Age of Onset ??? Hyperlipidemia Mother ??? Cancer Mother ??? Diabetes Father ??? Hypertension Father ??? Hypertension Brother ??? Hyperlipidemia Brother SOCIAL HISTORY: Social History Tobacco Use ??? Smoking status: Never Smoker ??? Smokeless tobacco: Never Used Substance Use Topics ??? Alcohol use: Yes Comment: occassionally ??? Drug use: No Review of Systems Review of Systems Constitutional: Negative for chills and fever. HENT: Negative for congestion and sore throat. Eyes: Negative for discharge. Respiratory: Positive for shortness of breath. Cardiovascular: Positive for chest pain. Gastrointestinal: Negative for abdominal pain, nausea and vomiting. Endocrine: Negative for polyuria. Genitourinary: Negative for difficulty urinating. Musculoskeletal: Negative for back pain. Skin: Negative for rash. Neurological: Negative for light-headedness. Psychiatric/Behavioral: Negative for dysphoric mood. Physical Exam Filed Vitals: 02/13/19 0831 02/13/19 0900 02/13/19 1000 02/13/19 1050 BP: 125/78 127/82 128/89 140/82 Pulse: 99 86 97 82 Resp: 15 16 20 16 Temp: TempSrc: SpO2: 98% 95% 96% 95% Weight: Height: Physical Exam Constitutional: She is oriented to person, place, and time. No distress. HENT: Head: Normocephalic. Eyes: Conjunctivae are normal. Cardiovascular: Normal rate and normal heart sounds. Pulmonary/Chest: Effort normal and breath sounds normal. Abdominal: Soft. She exhibits no distension. There is no tenderness. Neurological: She is alert and oriented to person, place, and time. Skin: Skin is warm and dry. She is not diaphoretic. Psychiatric: She has a normal mood and affect. Diagnostic Studies / Procedures ELECTROCARDIOGRAMS: Results for orders placed or performed during the hospital encounter of 02/13/19 ECG [address] [facility] Test Date: 2019-02-13 Pat Name: RODERICK BADILLO Department: Room: Gender: Female Locker Attendant: HOME : 1995 Requested By: ROBBI ROMERO Order Number: [id number] Reading MD: Measurements Intervals [place] Rate: 94 P: 31 AR: 160 QRS: 38 QRSD: 86 T: 44 QT: 332 QTc: 417 Interpretive Statements SINUS RHYTHM No previous ECG available for comparison ECG [address] [facility] [address] [facility] Test Date: 2019-02-13 Pat Name: RODERICK BADILLO Department: Room: [facility] Gender: F Locker Attendant: anb : 1995 Requested By: ROBBI ROMERO Order Number: [id number] Reading MD: Measurements Intervals [place] Rate: 84 P: 22 AR: 160 QRS: 25 QRSD: 85 T: 43 QT: 335 QTc: 397 Interpretive Statements SINUS RHYTHM Compared to ECG 02/13/2019 07:08:23 No significant changes LABORATORY STUDIES: Results for orders placed or performed during the hospital encounter of 02/13/19 CBC W/DIFF AUTOMATED Result Value Ref Range WBC 11.1 (H) 4.5 - 11.0 x10'3/uL RBC 5.56 (H) 4.20 - 5.40 x10'6/uL HGB 14.0 12.0 - 16.0 G/DL HCT 44.7 38.0 - 48.0 % MCV 80.4 80.0 - 94.0 FL MCH 25.2 (L) 27.0 - 31.0 PG MCHC 31.3 (L) 32.0 - 36.0 G/DL RDW 14.6 (H) 11.5 - 14.5 % PLT 389 130 - 400 x10'3/uL MPV 9.1 (L) 9.3 - 12.2 FL DIFFERENTIAL TYPE AUTOMATED DIFFERENTIAL NEUTROPHILS 62.0 % LYMPHOCYTES 26.4 % MONOCYTES 5.0 % EOSINOPHILS 1.7 % BASOPHILS 0.6 % IMMATURE GRANS 4.3 % ABS. NEUTROPHILS TOTAL 6.88 1.80 - 7.70 x10'3/uL ABS. LYMPHOCYTES 2.94 1.00 - 4.80 x10'3/uL ABS. MONOCYTES 0.56 0.24 - 0.86 x10'3/uL ABS. EOSINOPHILS 0.19 0.04 - 0.36 x10'3/uL ABS. BASOPHILS 0.07 0.01 - 0.08 x10'3/uL ABS. IMMATURE GRANULOCYTES 0.48 0.00 - 0.49 x10'3/uL COMPREHENSIVE METABOLIC PANEL Result Value Ref Range GLUCOSE 100 (H) 70 - 99 MG/DL BUN 14 7 - 18 MG/DL CREATININE 0.94 0.55 - 1.02 MG/DL SODIUM 138 136 - 145 MMOL/L POTASSIUM 4.5 3.5 - 5.1 MMOL/L CHLORIDE 105 100 - 108 MMOL/L CO2 27.4 21 - 32 MMOL/L CALCIUM 10.0 8.5 - 10.1 MG/DL TOTAL BILIRUBIN 0.2 0.2 - 1.2 MG/DL TOTAL PROTEIN 8.1 6.4 - 8.2 G/DL ALBUMIN 3.9 3.4 - 5.0 G/DL AST 28 15 - 37 U/L ALT 53 14 - 55 U/L ALK PHOS 86 50 - 136 U/L ANION GAP 5.6 5 - 15 MMOL/L BUN CREATININE RATIO 15.0 6 - 26 A/G RATIO 0.9 (L) 1.0 - 2.0 RATIO eGFR Non-Afr. Amer. 84 (L) >90 ML/MIN/1.73 M2 eGFR Afr. Amer. >90 >90 ML/MIN/1.73 M2 TROPONIN, QUANT Result Value Ref Range TROPONIN I <0.015 <0.045 ng/mL. D-DIMER, QUANTITATIVE Result Value Ref Range D-DIMER 151 0 - 230 D DU ng/mL POCT urine Result Value Ref Range URINE HCG TEST negative NEGATIVE INT CTRL PERFORMED EXPECTED? yes IMAGING STUDIES XR CHEST PORTABLE Final Result by User, [id number] (02/13 6118) Examination: Chest radiograph Exam time: 02/13/2019 7:48 AM Clinical history: Nonradiating right upper arm pain. Midsternal chest pain. Comparison: None Technique: One view of the chest obtained. Findings: Normal heart size and pulmonary vascularity. No consolidations, pleural effusions, or definite pneumothorax. IMPRESSION: No acute findings. Course / Medical Decision Making MDM Number of Diagnoses or Management Options Chest pain, unspecified type: Diagnosis management comments: This patient had chest pain and arm pain today. Her heart score was 2. She had a negative d-dimer. Chest x-ray was unremarkable. The patient had 2- troponins. Her EKG was unremarkable. At this time I do not find a serious cause for her chest pain. It does not appear that her pain is related to her heart. It also does not appear that she has a pulmonary embolism. It also does not appear that the patient has an aortic dissection. I believe the patient can be discharged to follow-up with her primary medical doctor. ED Course as of Feb 13 1154 Darling Feb 13, 2019 1000 EKG shows normal sinus rhythm rate of [address] or T wave changes and no PVCs [EE] ED Course User Index [EE] Antonio Smith MD Clinical Impression Chest pain, unspecified type (Primary) Disposition: Discharge Antonio Smith MD 02/13/19 1155 * Tian Fallon RN - 02/13/2019 7:12 AM CDT Non radiating right upper arm pain and mid sternal cp since 4am. Admits to nausea and hx of anxiety. Denies any sob. documented in this encounter Plan of Treatment Not on file documented as of this encounter Procedures Procedure Name Priority Date/Time Associated Diagnosis Comments TROPONIN, QUANT STAT 02/13/2019 10:01 AM CDT ECG 12-LEAD STAT 02/13/2019 9:55 AM CDT XR CHEST PORTABLE STAT 02/13/2019 7:4 8 AM CDT POCT URINE (BACK OFFICE) STAT 02/13/2019 7:46 AM CDT COMPREHENSIVE METABOLIC PANEL STAT 02/13/2019 7:17 AM CDT D-DIMER, QUANTITATIVE STAT 02/13/2019 7:17 AM CDT CBC W/DIFF AUTOMATED STAT 02/13/2019 7:17 AM CDT TROPONIN, QUANT STAT 02/13/2019 7:17 AM CDT ECG 12-LEAD STAT 02/13/2019 7:08 AM CDT documented in this encounter Results * TROPONIN, QUANT (02/13/2019 10:01 AM CDT) TROPONIN I <0.0150 <0.045 ng/mL. 02/13/2019 11:56 AM CDT [facility] Comment: HIGH DOSES OF BIOTIN MAY INTERFERE WITH THIS TEST RESULT. CORRELATION TO CLINICAL HISTORY AND PRESENTATION RECOMMENDED. 02/13/2019 10:0 1 AM CDT Robbi Romero MD LABORATORY Final Result [facility] [address] [place] [address], * ECG 12 lead (02/13/2019 9:55 AM CDT) 02/13/2019 9:55 AM CDT Narrative [facility] ([facility]) RAD - 02/14/2019 9:39 AM CDT ?[facility] ? [address] [facility] ? Test Date: ?2019-02-13 Pat Name: ? RODERICKCHICO BADILLO ? Department: ? Room: ? INGRID Gender: ?Locker Attendant: ?? anb : ?1995 ? Requested By: ROBBI ARMANDO Order Number: [id number] ? Reading MD: ?? Pete Fitzpatrick ? Measurements Intervals ?[place] ? Rate: ? 84 ? P: ?22 AR: ? 160 ?QRS: ?25 QRSD: ? 85 ? T: ?43 QT: ? 335 ? QTc: ?397 ? Interpretive Statements SINUS RHYTHM Compared to ECG 02/13/2019 07:08:23 No significant changes Procedure Note Pete Fitzpatrick MD - 02/14/[address] [facility] [address] Test Date: 2019-02-13 Pat Name: RODERICK BADILLO Department: Room: INGRID Gender: Locker Attendant: anb : 1995 Requested By: ROBBI ROMERO Order Number: [id number] Reading MD: Pete Fitzpatrick Measurements Intervals [place] Rate: 84 P: 22 AR: 160 QRS: 25 QRSD: 85 T: 43 QT: 335 QTc: 397 Interpretive Statements SINUS RHYTHM Compared to ECG 02/13/2019 07:08:23 No significant changes us Robbi Romero MD ECG ORDERABLES Final Result [facility] RAD * XR CHEST PORTABLE (02/13/2019 7:48 AM CDT) Anatomical Region Laterality Modality Chest Fluoroscopy 02/13/2019 7:50 AM CDT Impressions 02/13/2019 7:51 AM CDT IMPRESSION: No acute findings. Narrative 02/13/2019 7:51 AM CDT Examination: Chest radiograph Exam time: 02/13/2019 7:48 AM Clinical history: Nonradiating right upper arm pain. Midsternal chest pain. Comparison: None Technique: ??One view of the chest obtained. Findings: ??Normal heart size and pulmonary vascularity. No consolidations, pleural effusions, or definite pneumothorax. Procedure Note Ezequiel Melgoza MD - 02/13/2019 Examination: Chest radiograph Exam time: 02/13/2019 7:48 AM Clinical history: Nonradiating right upper arm pain. Midsternal chestpain. Comparison: None Technique: One view of the chest obtained. Findings: Normal heart size and pulmonary vascularity. Noconsolidations, pleural effusions, or definite pneumothorax. IMPRESSION: No acute findings. Robbi Romero MD GENERAL IMAGING Final Result * POCT urine (02/13/2019 7:46 AM CDT) URINE HCG TEST negative NEGATIVE Internal Control performed as Expected? yes Comment:lot: [id number] 12/19/2019 Antonio Smith MD POINT OF CARE TEST ORDERABLES Final Result * D-DIMER, QUANTITATIVE (02/13/2019 7:17 AM CDT) Pathologist [facility] [place] D-DIMER 151 0 - 230 D DU ng/mL 02/13/2019 7:57 AM CDT [facility] Comment: TESTING PERFORMED ON [employer] ANALYZER. NOTE: RESULTS OF THIS TEST SHOULD ALWAYS BE INTERPRETED IN CONJUNCTION WITH THE PATIENT'S MEDICAL HISTORY, CLINICAL PRESENTATION AND OTHER FINDINGS. CLINICAL DIAGNOSIS SHOULD NOT BE BASED ON THE RESULT OF D-DIMER ALONE. THE MEASUREMENT OF D-DIMER SHOULD NOT BE USED AN AID IN THE DIAGNOSIS OF VTE IN PATIENTS WITH: THERAPEUTIC DOSE ANTICOAGULANT THERAPY FOR >24HRS, FIBRINOLYTIC THERAPY WITHIN PREVIOUS 7 DAYS, TRAUMA OR SURGERY WITHIN PREVIOUS 4 WEEKS, DISSEMINATED MALIGNANCIES, AORTIC ANEURYSM, SEPSIS, SEVERE INFECTIONS, PNEUMONIA, SEVERE SKIN INFECTIONS, LIVER CIRRHOSIS OR . 02/13/2019 7:17 AM CDT Antonio Smith MD LABORATORY Final Result [facility] [address] [place] [address], * TROPONIN, QUANT (02/13/2019 7:17 AM CDT) Pathologist [facility] TROPONIN I <0.015 <0.045 ng/mL. 02/13/2019 7:59 AM CDT [facility] Comment: HIGH DOSES OF BIOTIN MAY INTERFERE WITH THIS TEST RESULT. CORRELATION TO CLINICAL HISTORY AND PRESENTATION RECOMMENDED. 02/13/2019 7:17 AM CDT us Robbi Romero MD LABORATORY Final Result [facility] [address] [place] [id number], * (ABNORMAL) COMPREHENSIVE METABOLIC PANEL (02/13/2019 7:17 AM CDT) GLUCOSE 100(H) 70 - 99 MG/DL 02/13/2019 7:59 AM CDT [facility] BUN 14 7 - 18 MG/DL 02/13/2019 7:59 AM CDT [facility] CREATININE S/P/B 0.94 0.55 - 1.02 MG/DL 02/13/2019 7:59 AM CDT [facility] SODIUM S/P/B 138 136 - 145 MMOL/L 02/13/2019 7:59 AM CDT [facility] POTASSIUM S/P/B 4.5 3.5 - 5.1 MMOL/L 02/13/2019 7:59 AM CDT [facility] CHLORIDE S/P/B 105 100 - 108 MMOL/L 02/13/2019 7:59 AM CDT [facility] CO2 27.4 21 - 32 MMOL/L 02/13/2019 7:59 AM CDT [facility] CALCIUM S/P/B 10.0 8.5 - 10.1 MG/DL 02/13/2019 7:59 AM CDT [facility] BILIRUBIN TOTAL S/P/B 0.2 0.2 - 1.2 MG/DL 02/13/2019 7:59 AM CDT [facility] TOTAL PROTEIN S/P/B 8.1 6.4 - 8.2 G/DL 02/13/2019 7:59 AM T [facility] ALBUMIN S/P/B 3.9 3.4 - 5.0 G/DL 02/13/2019 7:59 AM CDT [facility] AST 28 15 - 37 U/L 02/13/2019 7:59 AM CDT [facility] ALT 53 14 - 55 U/L 02/13/2019 7:59 AM CDT [facility] ALKALINE PHOSPHATASE S/P/B 86 50 - 136 U/L 02/13/2019 7:59 AM T [facility] ANION GAP 5.6 5 - 15 MMOL/L 02/13/2019 7:59 AM T [facility] BUN CREATININE RATIO 15.0 6 - 02/13/2019 7:59 AM T [facility] A/G RATIO 0.9(L) 1.0 - 2.0 RATIO 02/13/2019 7:59 AM T [facility] EGFR NON-AFR. AMER. 84(L) >90 ML/MIN/1.7 3 M2 02/13/2019 7:59 AM T [facility] EGFR AFR. AMER. >90 >90 ML/MIN/1.7 3 M2 02/13/2019 7:59 AM T [facility] Comment: NOTE: eGFR is not calculated for patients <18 years of age. This is an estimated GFR (CKD EPI) and should not be used for calculating drug doses. 02/13/2019 7:17 AM CDT Robbi Romero MD LABORATORY Final Result [facility] [address] [place] [address], [place] [phone] * (ABNORMAL) CBC W/DIFF AUTOMATED (02/13/2019 7:17 AM CDT) [facility] WBC 11.1(H) 4.5 - 11.0 x10'3/uL 02/13/2019 7:36 AM CDT [facility] RBC 5.56(H) 4.20 - 5.40 x10'6/uL 02/13/2019 7:36 AM CDT [facility] HGB 14.0 12.0 - 16.0 G/DL 02/13/2019 7:36 AM CDT [facility] HCT 44.7 38.0 - 48.0 % 02/13/2019 7:36 AM CDT [facility] MCV 80.4 80.0 - 94.0 FL 02/13/2019 7:36 AM CDT [facility] MCH 25.2(L) 27.0 - 31.0 PG 02/13/2019 7:36 AM CDT [facility] MCHC 31.3(L) 32.0 - 36.0 G/DL 02/13/2019 7:36 AM CDT [facility] RDW 14.6(H) 11.5 - 14.5 % 02/13/2019 7:36 AM CDT [facility] PLT 389 130 - 400 x10'3/uL 02/13/2019 7:36 AM CDT [facility] MPV 9.1(L) 9.3 - 12.2 FL 02/13/2019 7:36 AM CDT [facility] DIFFERENTIAL TYPE AUTOMATED DIFFERENTIAL 02/13/2019 7:36 AM CDT [facility] NEUTROPHILS % 62.0 % 02/13/2019 7:36 AM CDT [facility] LYMPHOCYTES % 26.4 % 02/13/2019 7:36 AM CDT [facility] MONOCYTES % 5.0 % 02/13/2019 7:36 AM CDT [facility] EOSINOPHILS 1.7 % 02/13/2019 7:36 AM CDT [facility] BASOPHILS 0.6 % 02/13/2019 7:36 AM CDT [facility] IMMATURE GRANS % 4.3 % 02/14/20 7:36 AM CDT [facility] ABS. NEUTROPHILS TOTAL 6.88 1.80 - 7.70 x10'3/uL 02/13/2019 7:36 AM CDT [facility] ABS. LYMPHOCYTES 2.94 1.00 - 4.80 x10'3/uL 02/13/2019 7:36 AM CDT [facility] ABS. MONOCYTES 0.56 0.24 - 0.86 x10'3/uL 02/13/2019 7:36 AM CDT [facility] ABS. EOSINOPHILS 0.19 0.04 - 0.36 x10'3/uL 02/13/2019 7:36 AM CDT [facility] ABS. BASOPHILS 0.07 0.01 - 0.08 x10'3/uL 02/13/2019 7:36 AM CDT [facility] ABS. IMMATURE GRANULOCYTES 0.48 0.00 - 0.49 x10'3/uL 02/13/2019 7:36 AM CDT [facility] 02/13/2019 7:17 AM CDT us Robbi Romero MD LABORATORY Final Result [facility] [address] [place] [address], [place] [phone] * ECG 12 lead (02/13/2019 7:08 AM CDT) 02/13/2019 7:08 AM CDT Narrative [facility] - 02/14/2019 8:56 AM CDT ?[facility] ? [address] [place] ? Test Date: ?2019-02-13 Pat Name: ? RODERICK MEADDENIA ? Department: ? Room: ? INGRID Gender: ? F ?Locker Attendant: ?? ALR : ?1995 ? Requested By: ROBBI Oviedo Number: [id number] ? Reading MD: ?? Pete Fitzpatrick ? Measurements Intervals ?[place] ? Rate: ? 94 ? P: ?31 AR: ? 160 ?QRS: ?38 QRSD: ? 86 ? T: ?44 QT: ? 332 ? QTc: ?417 ? Interpretive Statements SINUS RHYTHM Artifact noted No previous ECG available for comparison No ischemic changes Silverio Jj CRITICAL ALERT ISSUED ON 02-13-2019 7:15:19 Procedure Note Pete Fitzpatrick MD - 02/14/2019 [facility] [address] Test Date: 2019-02-13 Pat Name: RODERICK BADILLO Department: Room: [facility] Gender: F Locker Attendant: HOME : 1995 Requested By: ROBBI ROMERO Order Number: [id number] Hafsa PAREDES: Pete Fitzpatrick Measurements Intervals [place] Rate: 94 P: 31 AR: 160 QRS: 38 QRSD: 86 T: 44 QT: 332 QTc: 417 Interpretive Statements SINUS RHYTHM Artifact noted No previous ECG available for comparison No ischemic changes Silverio Jj CRITICAL ALERT ISSUED ON 02-13-2019 7:15:19 us Robbi Romero MD ECG ORDERABLES Final Result [facility] documented in this encounter Visit Diagnoses Diagnosis Chest pain, unspecified type- Primary documented in this encounter Administered Medications Inactive Administered Medications - up to 3 most recent administrations Medication Order MAR Action Action Date Dose Rate Site acetaminophen (TYLENOL) tablet 1,000 mg 1,000 mg, Oral, Once, 1 dose, On Darling 02/13/19 at 0745, Maximum dose of acetaminophen is 4000 mg from all sources in 24 hours. Given 02/13/2019 7:38 AM CDT 1,000 mg aspirin chewable tablet 324 mg 324 mg, Oral, Once, 1 dose, On Darling 02/13/19 at 0715, If not given by EMS or taken immediately prior to arrival Given 02/13/2019 7:30 AM CDT 324 mg documented in this encounter Active and Recently Administered Medications Times are shown in CDT. Scheduled Medication Order 2019 02/12/2019 02/13/2019 acetaminophen (TYLENOL) tablet 1,000 mg (COMPLETED) 1,000 mg, Oral, Once, 1 dose, On Darling 02/13/19 at 0745, Maximum dose of acetaminophen is 4000 mg from all sources in 24 hours. 0738 (Given - Provid er: Paula Klein RN) aspirin chewable tablet 324 mg (COMPLETED) 324 mg, Oral, Once, 1 dose, On Darling 02/13/19 at 0715, If not given by EMS or taken immediately prior to arrival 0730 (Given - Provid er: Paula Klein RN) documented in this encounter Care Teams Food Sales Clerk Relationship Specialty Start Date End Date None, Provider, PCP - General 02/13/19 documented as of this encounter
--- OUTSIDE RECORDS SUMMARY | 2024-05-30 08:28 | XMS_ITS | Clinical Summary ---
Author Organization [facility] Address [address] [address] Care Team Providers Care Route Delivery Manager Name Role Phone Unavailable Primary Care Provider Unavailabl e Source Comments [facility],non-owned Affiliates and Associated Physician Practices is amultiple site organization consisting of ambulatory clinics and hospital sitesin [place], [place], [place] and [place]. This disclosure is being madepursuant to the Care Everywhere program and may not contain all information available regarding this patient. Last updated 18.[facility] Allergies Active Allergy Reactions Criticality Noted Date [...] Mass Index 35.19 01/31/2016 7:40 AM CDT Plan of Treatment Health Maintenance Due Date Last Done Comments PAP SMEAR 1995 HIV SCREENING 2009 HEPATITIS C SCREENING 02/07/2012 DTAP/TDAP/TD VACCINES (1 - Tdap) 2013 HEPATITIS B VACCINE (1 of 3 - 19+ 3-dose series) 2013 DEPRESSION SCREENING 05/21/2023 COVID-19 VACCINE (1 - 2023-2 5 season) 2024 INFLUENZA VACCINE (#1) 2024 ZOSTER VACCINE (1 of 2) 02/12/2044 HIB VACCINE Aged Out No longer eligi ble based on patient's age to complete this topic HPV VACCINE Aged Out No longer eligi ble based on patient's age to complete this topic MENINGOCOCCAL VACCINE Aged Out No earnest keith eligible based on patient's age to complete this topic PNEUMOCOCCAL VACCINE Aged Out No long er eligible based on patient's age to complete this topic
--- OUTSIDE RECORDS SUMMARY | 2024-05-30 08:28 | XMS_ITS | Encounter Summary ---
Author Organization [facility] Address [address] [place] [address]. [place], [place] [address] [place] [id number] Care Team Providers Care Photogrammetric Engineer Name Role Phone None, Provider Primary Care Provider Unavaila ble Encounter Details Date Type Department Care Team (Late st Contact Info) Description 02/03/2016 Abstract [facility] [address] [place] [address] Yulisa Mustafa CN [address] [place] [address] Social History Tobacco Use Types Packs/Day Years [...] on filedocumented in this encounter Care Teams Photogrammetric Engineer Relationship Specialty Start Date End Date None, Provider, PCP - General 02/13/19 documented as of this encounter
--- OUTSIDE RECORDS SUMMARY | 2024-05-30 08:28 | XMS_ITS | Encounter Summary ---
Author Organization [facility] Address [address] [place] [address]. [place] [address] Care Team Providers Care Nipple Maker Name Role Phone None, Provider Primary Care Provider Arturoa ble Encounter Details Date Type Department Care Team (Latest Contact Info) Description 11/09/2015 Abstract [facility] , Generic Conversion, [...] Sign Reading Time Taken Comments Blood Pressure 110/62 11/09/2015 3:34 PM CDT Pulse - - Temperature - - Respiratory Rate - - Oxygen Saturation - - Inhaled Oxygen Concentration - - Weight 94.8 kg (209 lb) 11/09/2015 3:34 PM CDT Height - - Body Mass Index 34.78 09/14/2015 1:58 PM CDT documented in this encounter Plan of Treatment Not on file documented as of this encounter Visit Diagnoses Not on filedocumented in this encounter Care Teams Nipple Maker Relationship Specialty Start Date End Date None, Provider, PCP - General 02/13/19 documented as of this encounter
--- OUTSIDE RECORDS SUMMARY | 2024-05-30 08:28 | XMS_ITS | Encounter Summary ---
Author Organization [facility] Address [address] [place] [address]. [place] [address] Care Team Providers Care Brake Repair Mechanic Name Role Phone None, Provider Primary Care Provider Arturoa ble Encounter Details Date Type Department Care Team (Latest Contact Info) Description 10/19/2015 Abstract [facility] , Generic Conversion, Social [...] Sign Reading Time Taken Comments Blood Pressure 122/70 10/19/2015 1:58 PM CDT Pulse - - Temperature - - Respiratory Rate - - Oxygen Saturation - - Inhaled Oxygen Concentration - - Weight 96.2 kg (212 lb) 10/19/2015 1:58 PM CDT Height - - Body Mass Index 35.28 09/14/2015 1:58 PM CDT documented in this encounter Plan of Treatment Not on file documented as of this encounter Visit Diagnoses Not on filedocumented in this encounter Care Teams Brake Repair Mechanic Relationship Specialty Start Date End Date None, Provider, PCP - General 02/13/19 documented as of this encounter
--- OUTSIDE RECORDS SUMMARY | 2024-05-30 08:34 | XMS_ITS | Referral Summary ---
Author Organization [address] Address [address] [place] [id number] Care Team Providers Care Personnel Recruiter Name Role Phone No, Physician Primary Care Provider [phone] Allergies Active Allergy Reactions Criticality Noted Date Comments Other Hives,Other (See comments) High 11/19/2022 ALOMNDS, tongue swelling and tingling Medications atorvastatin (LIPITOR) 40 mg tablet Take 1 tablet (40 mg total) by mouth daily 10/31/2022 Active metFORMIN XR (GLUCOPHAGE XR) 500 mg 24 hr tablet Take 2 tablets (1,000 mg total) by mouth 2 (two) times a day 10/20/2022 Active norethindrone (MICRONOR) 0.35 mg tablet Take 1 tablet (0.35 mg total) by mouth daily 10/18/2021 Active busPIRone (BUSPAR) 7.5 mg tablet Take 1 tablet (7.5 mg total) by mouth 2 (two) times a day 10/31/2022 Active Active Problems No known active problems Immunizations Name Administration Dates Next Due HPV, Quadrivalent 05/31/2007,11/27/2006,07/28/19 07 Hep B Vaccine 1994,1994,1994 Influenza, Quadrivalent, Spl it, Preservative Free, Intramuscular 04/15/2019,03/15/2016 Influenza, Unspecified 11/30/1999,1995,1994,06/12,1994 MMR 11/30/1999,03/27/1995 Meningococcal MCV4P (Menactra) 01/05/2012 OPV 11/30/1999, 5,1994,04/17 Social History Tobacco Use Types Packs/Day Years Used Date Smoking Tobacco: Never Assessed Comments No Sex and Gender Information Value Date Recorded Sex Assigned at Not on file Legal Sex Female 10:28 AM CDT Gender Identity Not on file Sexual Orientation Not on file Last Filed Vital Signs Vital Sign Reading Time Taken Comments Blood Pressure 112/72 11/19/2022 10:41 AM CDT Pulse 97 11/19/2022 10:41 AM CDT Temperature 36.6 ??C (97.9 ??F) 11/19/2022 10:41 AM C DT Respiratory Rate - - Oxygen Saturation 99% 11/19/2022 10:41 AM CDT Inhaled Oxygen Concentration - - Weight 115.2 kg (254 lb) 11/19/2022 10:41 AM CDT Height 165.1 cm (5' 5 ) 11/19/2022 10:41 AM CDT Body Mass Index 42.27 11/19/2022 10:41 AM CDT Plan of Treatment Not on file Insurance Care Teams Personnel Recruiter Relationship Specialty Start Date End Date No, Physician PCP - General 11/19/22
--- OUTSIDE RECORDS SUMMARY | 2024-05-30 08:34 | XMS_ITS | Clinical Summary ---
Author Organization [address] Address [address] [place] [id number] Care Team Providers Care Senior Education Specialist Name Role Phone No, Physician Primary Care Provider [phone] Allergies Active Allergy Reactions Criticality Noted Date [...] on file Sexual Orientation Not on file Obstetrics History Last Filed Vital Signs Vital Sign Reading [...] 11/19/2022 10:41 AM CDT Plan of Treatment Health Maintenance Due Date Last Done Comments Cervical Cancer Screening 1994 Depression Screening 1994 Hepatitis C Screening 1994 Regular Well Visit/Exam 18-64 02/12/2012 DTaP/Tdap/Td Vaccine (1 - Tdap) 10/21/2014 10/20/2014 Covid-19 Vaccine ( season) 2024 05/11/2021, 08/24/2020, 08/01/2020 Influenza Vaccine (#1) 2024 9, 03/15/2016, 11/30/1999, Additional history exists HPV Vaccines Completed 05/31/2007, 11/18, 07/27/2006 Varicella Vaccines Completed 01/05/2012, 02/09/1997 Pneumococcal vaccine <65 Aged Out No longer eligible based on patient's age to complete this topic Insurance [facility] H[facility]/PPO Address: [place] [address] Care Teams Senior Education Specialist Relationship Specialty Start Date End Date No, Physician PCP - General 11/19/22
--- OUTSIDE RECORDS SUMMARY | 2024-05-30 08:34 | XMS_ITS | Clinical Summary ---
Author Organization [facility] Address [address] [place] [address] Phone Care Team Providers Care Diversified Crops Farmer Name Role Phone Provider, None Primary Care Provider Unavailabl e Allergies Active Allergy Reactions Criticality Noted Date Comments Other Hives,Other (see Comments) High ALOMNDS, tongue swelling and tingling Medications No known medications Active Problems Problem Noted Date Diagnosed Date Bartholin gland cyst 07/08/2015 Dysmenorrhea History of heavy vaginal bleeding Overview (06/17/2015): ? endometriosis Anaphylactic reaction due to tree nuts and seeds Allergic rhinitis Resolved Problems Problem Noted Date Diagnosed Date Resolved Date Environmental allergies 05/22 Immunizations Immunization Administration Dates Next Due Diptheria, Pertussis, And Tetanus 1999,05/22/1995,1994,06/12,1994 Hepatitis B Vaccine 1994,1994,1993 Human Papillomavirus Vaccine (HPV), quadrivalent 05/31/2007,11/27/2006,07/27/2006 MMR Vaccine 11/30/1999,03/27/1995 Meningococcal Vaccine 01/05/2012 OPV 11/30/1999, 5,1994,04/17 TD VACCINE 10/20/2014 Varicella Vaccine Live 01/05/2012,02/09/1997 Social History Tobacco Use Types Packs/Day Years Used Date Smoking Tobacco: Never Smokeless Tobacco: Never Alcohol Use Standard Drinks/Week Comments Not Asked 0 (1 standard drink = 0.6 oz pur e alcohol) Comments Unknown Sex and Gender Information Value Date Recorded Sex Assigned at Not on file Legal Sex Female 7:22 PM CDT Gender Identity Not on file Sexual Orientation Not on file Last Filed Vital Signs Vital Sign Reading Time Taken Comments Blood Pressure 120/80 07/08/2015 3:05 PM CUSTOMER OPERATIONS MANAGER Pulse 120 07/08/2015 3:05 PM CUSTOMER OPERATIONS MANAGER Temperature 37.6 ??C (99.7 ??F) 06/19/2015 2:31 PM CS T Respiratory Rate 18 07/08/2015 3:05 PM CUSTOMER OPERATIONS MANAGER Oxygen Saturation 98% 06/19/2015 2:31 PM CUSTOMER OPERATIONS MANAGER Inhaled Oxygen Concentration - - Weight 105.2 kg (232 lb) 07/08/2015 3:05 PM CUSTOMER OPERATIONS MANAGER Height 161.9 cm (5' 3.75 ) 07/08/2015 3:05 PM CS T Body Mass Index 40.14 07/08/2015 3:05 PM CUSTOMER OPERATIONS MANAGER Plan of Treatment Health Maintenance Due Date Last Done Comments DTaP/Tdap/Td Immunization (6 - Tdap) 10/21/2014 10/20/2014, 11/30/1999, 05/22/1995, Additional history exists Pap Smear 06/15/2018 06/15/2015 Influenza Immunization (#1) 2024 SARS-COV-2 Immunization ( season) 2024 Cervical Cancer Screening (CCS) 02/12/2024 HPV/Cotest 02/12/2024 Respiratory Syncytial Virus (RSV) Immunization (Adult) (1 - 1-dose 75+ series) 2069 Hepatitis B Immunization Completed 995, 1994, 1994 Human Papillomavirus (HPV) Immunization Discontinued 05/31/2007, 11/27/2006, 07/27/2006 Meningococcal Immunization (ACWY) Completed 01/05/2012 Hepatitis C Virus (HCV) Screening Completed 06/15/2015 Pneumococcal Immunization Combined Aged Out No longer eligible based on patient's age to complete this topic Rotavirus Immunization Aged Out No lo nger eligible based on patient's age to complete this topic Procedures Procedure Name Priority Date/Time Associated Diagnosis Comments HEPATITIS PANEL ACUTE (AHP) Routine 06/15/2015 10:14 AM CUSTOMER OPERATIONS MANAGER STD exposure PATHOLOGY CYTOLOGY DAIRY FEED WORKER Routine 06/15/2015 10:06 AM CUSTOMER OPERATIONS MANAGER Encounter for gynecological examination with abnormal finding [Z01.411] from Last 3 Months or Most Recently Relevant to Health Maintenance Results * HEPATITIS PANEL ACUTE (AHP) (06/15/2015 10:14 AM CUSTOMER OPERATIONS MANAGER) HEPATITIS A IGM ANTIBODY NEGATIVE NEGATIVE 06/15/2015 2:23 PM [facility] HEP B CORE AB (IGM) NEGATIVE NEGATIVE 06/15/2015 2:23 PM [facility] HEPATITIS B SURFACE ANTIGEN NEGATIVE NEGATIVE 06/15/2015 2:23 PM [facility] HCV QUALITATIVE Negative Negative 06/15/2015 2:23 PM [facility] DMH HBsAG CONFIRMATION NEGATIVE 06/15/2015 2:23 PM [facility] Blood specimen (specimen) Venipuncture / Unknown 06/15/2015 10:14 AM [facility] 06/15/2015 10:14 AM [facility] Narrative [facility] - 06/15/2015 2:23 PM CUSTOMER OPERATIONS MANAGER Indices not performed, result filed to complete Auto-Verification requirement us Jazmín Amezcua APRN, PLANT MANAGER HEMATOLOGY ORDERABLES Final Result [address] [address] * PATHOLOGY CYTOLOGY DAIRY FEED WORKER (06/15/2015 10:06 AM CUSTOMER OPERATIONS MANAGER) SPECIMEN ADEQUACY Satisfactory for evaluation, absence of endocervical component 06/16/2015 10:28 AM [facility] GENERAL CATEGORY 06/16/2015 10:28 AM [facility] Comment:Negative for intraep ithelial lesion or malignancy DESCRIPTIVE DIAGNOSIS NEGATIVE FOR INTRAEPITHELIAL LESIONS OR MALIGNANCY 06/16/2015 10:28 AM [facility] Clinical Information Z01.411 STD exposure 06/16/2015 10:28 AM [facility] OTHER FINDINGS 06/16/2015 10:28 AM [facility] Comment:Acute inflammation p resent. DISCLAIMER The PAP smear is a screening test designed to detect cancerous or precancerous cells of the uterine cervix. It is one of the best means available for detection of cervical cancer but still carries an inherent false-negative rate. ??The consequences of a false-negative PAP result can be minimized by adhering to current screening guidelines. ??The following are general guidelines recommended by the ACS, ASCP, ASCCP, and ACOG: ??PAP testing is recommended every three years for women 21-29, Co-Testing , a PAP test in conjunction with an HPV (Human Papillomavirus) test for women ages 30-65, and no PAP or HPV testing for women under the age of 21 or older than 65 unless clinically indicated. 06/16/2015 10:28 AM CUSTOMER OPERATIONS MANAGER [facility] Case Report Gynecologic Cytology Report ? Case: [id number] ? Authorizing Provider: ??Jazmín Amezcua CNP ?Collected: ? 06/15/2015 10:06 AM ? Ordering Location: ? DMNini WHYTE MD ?Received: ?06/15/2015 01:10 PM ? First Screen: ?Tara Patel ? Rescreen: ?Gallito Rodriguez III, MD ? Specimen: ?[facility] PAP THIN LAYER, CERVIX ? 06/16/2015 10:28 AM [facility] HPV Reflex if ASCUS? Yes 06/16/2015 10:28 AM [facility] Specimen of unknown material (specimen) CERVIX UTERI STRUCTURE / Unknown 06/15/2015 10:06 AM CUSTOMER OPERATIONS MANAGER 06/15/2015 1:10 PM CUSTOMER OPERATIONS MANAGER us Jazmín Amezcua APRN, CNP PATHOLOGY/CYTOLOGY ORD ERABLES Final Result Performing Organization Address City/State/[facility] Co de Phone Number [facility] [address] [place] [address] from Last 3 Months or Most Recently Relevant to Health Maintenance Insurance [facility] Care Teams Diversified Crops Farmer Relationship Specialty Start Date End Date Provider, None [place] PCP - General 10/28/19
--- OUTSIDE RECORDS SUMMARY | 2024-05-30 08:34 | XMS_ITS | Data Portability ---
Author Organization [facility] Address [address] [place] [address] Care Team Providers Care Parlor Maid Name Role Phone VICKIE CROSS Primary Care Provider Unavailab le Assessment No assessment recorded. Plan of Treatment Reminders Order Date Submit Date Provider Last Modified By Organization Details Last Modified Time Details Appointments None recorded. Lab CMP, serum or plasma 2023 024 [facility], [address] [place] [address], [address], 4 08:25:53 CBC w/ auto diff 2023 024 [facility], [address] [place] [address], [place], [address], 4 08:25:55 lipid panel, serum 2023 024 [facility], [address] [place] [address] 2, [place], [address], 4 08:25:52 influenza virus A + B + SARS-CoV-2 (COVID19) Ag panel, rapid IA, upper respiratory specimen 2023 024 [email or web address] In-Office Order, Internal Use Only DO Not Attach Compendium DO Not Attach Compendium, Do Not Delete/merge, [id number] 00:24:39 Referral None recorded. Procedures None recorded. Surgeries None recorded. Imaging None recorded. Medication Orders Wegovy 0.25 mg/0.5 mL subcutaneou s pen injector 2023 024 [facility], [address] [facility] , [place], [place], [id number], 4 13:42:02 alprazolam 0.25 mg tablet 2023 [facility], [address] [facility] [facility] , [place], [place], [id number], 4 15:48:34 codeine 10 mg-guaifene sin 100 mg/5 mL oral liquid 2023 024 [facility], [address] [facility] , [place], [place], [id number], 4 16:29:43 prednisone 20 mg tablet 2023 024 [facility], [address] [facility] , [place], [place], [id number], 4 16:29:43 Zithromax Z-Jonny 250 mg tablet 2023 024 [facility], [address] [facility] [address] [facility] , [place], [place], [id number], 4 16:29:42 Patient TargetsNo targets recorded. Patient Instructions Encounter Date Encounter Id Patient Instructions Last Modified By Organization Details Last Modified Time 02/18/2024 [id number] A healthy lifestyle: care instructions [email or web address] Not available 02/18/2024 15:45:00 Reason for Referral None Reported. Results Created Date Observation Date Name Description Value Unit Range Abnormal Flag Note LastModifiedBy Organization Detail LastModifiedTime 02/25/20 24 02/26/2024 LIPID PANEL cholesterol, total 250 mg/dL 100-19 9 above high normal Not Available [facility] ([facility]) [address] [facility], [place], [address], 02/26/2024 08:25:52 02/25/20 24 02/26/2024 LIPID PANEL triglyceride s 335 mg/dL 0-149 above high normal Not Available [facility] ([facility]) [address] [place], [address], 02/26/2024 08:25:52 02/25/20 24 02/26/2024 LIPID PANEL HDL cholesterol 34 mg/dL >39 below low normal Not Available [facility] ([facility]) [address] [place], [address], 02/26/2024 08:25:52 02/25/20 24 02/26/2024 LIPID PANEL VLDL cholesterol danica 63 mg/dL 5-40 above high normal Not Available [facility] ([facility]) [address] [place], [address], 02/26/2024 08:25:52 02/25/20 24 02/26/2024 LIPID PANEL LDL chol calc ([facility]) 153 mg/dL 0-99 above high normal Not Available [facility] ([facility]) [address] [place], [address], 02/26/2024 08:25:52 02/25/20 24 02/26/2024 COMP. METAB OLIC PANEL (14) glucose 89 mg/dL 70-99 Not Available [facility] ([facility]) [address] [place], [address], 02/26/2024 08:25:53 02/25/20 24 02/26/2024 COMP. METAB OLIC PANEL (14) BUN 11 mg/dL 6-20 Not Available [facility] ([facility]) [address] [place], [address], 02/26/2024 08:25:53 02/25/20 24 02/26/2024 COMP. METAB OLIC PANEL (14) creatinine 0.66 mg/dL 0.57-1 .00 Not Available [facility] ([facility]) [address] [place], [address], 02/26/2024 08:25:53 02/25/20 24 02/26/2024 COMP. METAB OLIC PANEL (14) eGFR 121 mL/mi n/1.7 3 >59 Not Available [facility] ([facility]) [address] [facility], [place], [address], 02/26/2024 08:25:53 02/25/20 24 02/26/2024 COMP. METAB OLIC PANEL (14) BUN/creatini ne ratio 17 9-23 Not Available [facility] ([facility]) [address] [facility], [place], [address], 02/26/2024 08:25:53 02/25/20 24 02/26/2024 COMP. METAB OLIC PANEL (14) sodium 139 mmol/ L 134-14 4 Not Available [facility] ([facility]) [address] [facility], [place], [address], 02/26/2024 08:25:53 02/25/20 24 02/26/2024 COMP. METAB OLIC PANEL (14) potassium 4.6 mmol/ L 3.5-5. 2 Not Available [facility] ([facility]) [address] [facility], [place], [address], 02/26/2024 08:25:53 02/25/20 24 02/26/2024 COMP. METAB OLIC PANEL (14) chloride 103 mmol/ L 96-106 Not Available [facility] ([facility]) [address] [facility], [place], [address], 02/26/2024 08:25:53 02/25/20 24 02/26/2024 COMP. METAB OLIC PANEL (14) carbon dioxide, total 23 mmol/ L 20-29 Not Available [facility] ([facility]) [address] [facility], [place], [address], 02/26/2024 08:25:53 02/25/20 24 02/26/2024 COMP. METAB OLIC PANEL (14) calcium 9.5 mg/dL 8.7-10 .2 Not Available [facility] ([facility]) [address] [facility], [place], [address], 02/26/2024 08:25:53 02/25/20 24 02/26/2024 COMP. METAB OLIC PANEL (14) protein, total 6.7 g/dL 6.0-8. 5 Not Available [facility] ([facility]) [address] [facility], [place], [address], 02/26/2024 08:25:53 02/25/2002/26/2024 COMP. METAB OLIC PANEL (14) albumin 4.2 g/dL 4.0-5. 0 Not Available [facility] ([facility]) [address] [facility], [place], [address], 02/26/2024 08:25:53 02/25/20 24 02/26/2024 COMP. METAB OLIC PANEL (14) globulin, total 2.5 g/dL 1.5-4. 5 Not Available [facility] ([facility]) [address] [place], [address], 02/26/2024 08:25:53 02/25/20 24 02/26/2024 COMP. METAB OLIC PANEL (14) bilirubin, total 0.2 mg/dL 0.0-1. 2 Not Available [facility] ([facility]) [address] [place], [address], 02/26/2024 08:25:53 02/25/20 24 02/26/2024 COMP. METAB OLIC PANEL (14) alkaline phosphatase 84 IU/L 44-121 Not Available [facility] ([facility]) [address] [facility], [place], [address], 02/26/2024 08:25:53 02/25/20 24 02/26/2024 COMP. METAB OLIC PANEL (14) AST (SGOT) 25 IU/L 0-40 Not Available [facility] ([facility]) [address] [facility], [place], [address], 02/26/2024 08:25:53 02/25/20 24 02/26/2024 COMP. METAB OLIC PANEL (14) ALT (SGPT) 30 IU/L 0-32 Not Available [facility] ([facility]) [address] [facility], [place], [address], 02/26/2024 08:25:53 02/25/20 24 02/26/2024 CBC WITH DIFFE RENTI AL/PL ATELE T WBC 6.7 x10e3 /uL 3.4-10 .8 Not Available [facility] ([facility]) [address] [facility], [place], [address], 02/26/2024 08:25:55 02/25/2002/26/2024 CBC WITH DIFFE RENTI AL/PL ATELE T RBC 5.13 x10e6 /uL 3.77-5 .28 Not Available [facility] ([facility]) [address] [facility], [place], [address], 02/26/2024 08:25:55 02/25/20 24 02/26/2024 CBC WITH DIFFE RENTI AL/PL ATELE T hemoglobin 12.9 g/dL 11.1-1 5.9 Not Available [facility] ([facility]) [address] [facility], [place], [address], 02/26/2024 08:25:55 02/25/2002/26/2024 CBC WITH DIFFE RENTI AL/PL ATELE T hematocrit 40.5 % 34.0-4 6.6 Not Available [facility] ([facility]) [address] [facility], [place], [address], 02/26/2024 08:25:55 02/25/20 24 02/26/2024 CBC WITH DIFFE RENTI AL/PL ATELE T MCV 79 fL 79-97 Not Available [facility] ([facility]) [address] [facility], [place], [address], 02/26/2024 08:25:55 02/25/20 24 02/26/2024 CBC WITH DIFFE RENTI AL/PL ATELE T MCH 25.1 pg 26.6-3 3.0 below low normal Not Available [facility] ([facility]) [address] [facility], [place], [address], 02/26/2024 08:25:55 02/25/20 24 02/26/2024 CBC WITH DIFFE RENTI AL/PL ATELE T MCHC 31.9 g/dL 31.5-3 5.7 Not Available [facility] ([facility]) [address] [facility], [place], [address], 02/26/2024 08:25:55 02/25/20 24 02/26/2024 CBC WITH DIFFE RENTI AL/PL ATELE T RDW 15.3 % 11.7-1 5.4 Not Available [facility] ([facility]) [address] [facility], [place], [address], 02/26/2024 08:25:55 02/25/20 24 02/26/2024 CBC WITH DIFFE RENTI AL/PL ATELE T platelets 353 x10e3 /uL 150-45 0 Not Available [facility] ([facility]) [address] [facility], [place], [address], 02/26/2024 08:25:55 02/25/20 24 02/26/2024 CBC WITH DIFFE RENTI AL/PL ATELE T neutrophils 60 % notest ab. Not Available [facility] ([facility]) [address] [facility], [place], [address], 02/26/2024 08:25:55 02/25/20 24 02/26/2024 CBC WITH DIFFE RENTI AL/PL ATELE T lymphs 30 % notest ab. Not Available [facility] ([facility]) [address] [facility], [place], [address], 02/26/2024 08:25:55 02/25/2002/26/2024 CBC WITH DIFFE RENTI AL/PL ATELE T monocytes 6 % notest ab. Not Available [facility] ([facility]) [address] [facility], [place], [address], 02/26/2024 08:25:55 02/25/2002/26/2024 CBC WITH DIFFE RENTI AL/PL ATELE T eos 2 % notest ab. Not Available [facility] ([facility]) [address] [facility], [place], [address], 02/26/2024 08:25:55 02/25/20 24 02/26/2024 CBC WITH DIFFE RENTI AL/PL ATELE T basos 0 % notest ab. Not Available [facility] ([facility]) [address] [facility], [place], [address], 02/26/2024 08:25:55 02/25/2002/26/2024 CBC WITH DIFFE RENTI AL/PL ATELE T neutrophils (absolute) 4.1 x10e3 /uL 1.4-7. 0 Not Available [facility] ([facility]) [address] [facility], [place], [address], 02/26/2024 08:25:55 02/25/2002/26/2024 CBC WITH DIFFE RENTI AL/PL ATELE T lymphs (absolute) 2.0 x10e3 /uL 0.7-3. 1 Not Available [facility] ([facility]) [address] [facility], [place], [address], 02/26/2024 08:25:55 02/25/20 24 02/26/2024 CBC WITH DIFFE RENTI AL/PL ATELE T monocytes(ab solute) 0.4 x10e3 /uL 0.1-0. 9 Not Available [facility] ([facility]) [address] [facility], [place], [address], 02/26/2024 08:25:55 02/25/20 24 02/26/2024 CBC WITH DIFFE RENTI AL/PL ATELE T eos (absolute) 0.1 x10e3 /uL 0.0-0. 4 Not Available [facility] ([facility]) [address] [facility], [place], [address], 02/26/2024 08:25:55 02/25/20 24 02/26/2024 CBC WITH DIFFE RENTI AL/PL ATELE T baso (absolute) 0.0 x10e3 /uL 0.0-0. 2 Not Available [facility] ([facility]) [address] [facility], [place], [address], 02/26/2024 08:25:55 02/25/20 24 02/26/2024 CBC WITH DIFFE RENTI AL/PL ATELE T immature granulocytes 2 % notest ab. Not Available [facility] ([facility]) [address] [facility], [place], [address], 02/26/2024 08:25:55 02/25/20 24 02/26/2024 CBC WITH DIFFE RENTI AL/PL ATELE T immature grans (abs) 0.2 x10e3 /uL 0.0-0. 1 above high normal (An eleva blaire perce ntage of Immat ure Granu locyt es has not been found to be clini angela signi fican t as a sole clini danica predi ctor of disea se. Does NOT inclu de bands or blast cells . Pregn oxana assoc iated physi ologi danica leuko cytos is may also show incre ased immat ure granu locyt es witho ut clini danica signi fican ce.) Not Available [facility] ([facility]) [address] [facility], [place], [address], 02/26/2024 08:25:55 05/02/20 05/02/2024 influ jenna virus A + B + SARS- CoV-2 (COVI D19) Ag panel , rapid IA, upper respi rator y speci men Flu A negati ve Not Available In-Office Order Internal Use Only DO Not Attach Compendium DO Not Attach Compendium, Do Not Delete/merge, [id number] 05/02/2024 16:29:41 05/02/20 24 05/02/2024 influ jenna virus A + B + SARS- CoV-2 (COVI D19) Ag panel , rapid IA, upper respi rator y speci men Flu B negati ve Not Available In-Office Order Internal Use Only DO Not Attach Compendium DO Not Attach Compendium, Do Not Delete/merge, [id number] 05/02/2024 16:29:41 05/02/20 24 05/02/2024 influ jenna virus A + B + SARS- CoV-2 (COVI D19) Ag panel , rapid IA, upper respi rator y speci men Rapid SARS CoV 2 Ag, QL IA, respiratory specimen negati ve Not Available In-Office Order Internal Use Only DO Not Attach Compendium DO Not Attach Compendium, Do Not Delete/merge, [id number] 05/02/2024 16:29:41 Result Notes None recorded. Problems Name Problem SNOMED Code Status Onset Date Resolution Date Notes Provider Name and Address Organization Details Recorded Time Body mass index 40+ - severely obese 032593975 Active 2023 Evelin Rendon MA null, [place] - [place] 4 15:06:22 Prediabetes 501251151 Active 2023 ELISABET Genao Attn: Chloé perea,[address] [facility], [place], [address], [facility] - [place] 4 15:13:37 Obesity 721806508 Active 2023 ELISABET Genao Attn: Chloé perea,[address] [facility], [place], [address], [facility] - [place] 4 15:13:38 Hyperlipide lalo 08175692 Active 2023 ELISABET Genao Attn: Chloé perea,[address] [facility], [place], [address], [facility] - [facility] 4 19:05:02 Anxiety 12866024 Active 2023 ELISABET Genao Attn: Chloé perea,[address], [place], [address], [facility] 4 19:05:15 Positive screening for depression on PHQ-9 (Patient Health Questionnai re 9) 5621224455206 00 Active 2023 ELISABET Genao Attn: Chloé g,[address] [facility], [place], [address], [facility] 4 19:05:57 Problem Notes None recorded. Procedures Surgical History Date Name Laterality Status Provider Name and Address Organization Details Recorded Time 1 Tonsillectomy completed Evelin Rendon MA [facility] 02/18/2024 15:05:53 Appendectomy completed Evelin Rendon MA [facility] 02/18/2024 15:05:43 Imaging Results None recorded. Procedure Notes None recorded. Medical Equipment None Reported. Allergies Allergen ID Allergen Name Allergen Category Reaction Reaction Severity Criticality Documentation Date Start Date Code Code System Note Provider Name and Address Organization Details Recorded Time 836991 almond allergeni c extract food Not available Not available Not available 02/18/2024 23681 7 RxNorm Evelin Rendon MA null, [facility] 4 15:01:58 Medications Name Sig Start Date Stop Date Status Note LastModified by Organization Details LastModified Time medroxyprog esterone 10 mg tablet active pcos Not Available Not Available No t Available atorvastati n 10 mg tablet Take 1 tablet every day by oral route. active Not Available Not Available No t Available azithromyci n 250 mg tablet TAKE 2 TABLETS (500 MG) BY ORAL ROUTE ONCE DAILY FOR 1 DAY THEN 1 TABLET (250 MG) BY ORAL ROUTE ONCE DAILY FOR 4 DAYS active Not Available Not Available No t Available prednisone 20 mg tablet Take 2 tablets every day by oral route for 5 days. active Not Available Not Available No t Available alprazolam 0.25 mg tablet Take 1 tablet twice a day by oral route as needed, for travel anxiety. active Not Available Not Available No t Available codeine 10 mg-guaifene sin 100 mg/5 mL oral liquid Take 10 mL every 4 hours by oral route as needed. active Not Available Not Available No t Available metformin ER 500 mg tablet,exte nded release 24 hr Take 1 tablet by oral route for 30 days. active Not Available Not Available No t Available Wegovy 1.7 mg/0.75 mL subcutaneou s pen injector Inject 1.7 mg every week by subcutane ous route. active Not Available Not Available No t Available Wegovy 1 mg/0.5 mL subcutaneou s pen injector Inject 1 mg every week by subcutane ous route. active Not Available Not Available No t Available Wegovy 0.25 mg/0.5 mL subcutaneou s pen injector Inject 0.5 mL (Q.25 mg) by subcutane ous injection every 7 days. 04/09 completed Not Available Not Available Not Available Wegovy 0.5 mg/0.5 mL subcutaneou s pen injector 04/09 completed Not Available Not Available Not Available Vitals Date Recorded Body height Respiratory rate Body mass index (BMI) Body weight Oxygen saturation Oxygen saturation in Arterial blood by Pulse oximetry Heart rate Systolic blood pressure Diastolic blood pressure Provider Name and Address Organization Details Last Updated DateTime 4 165.1 cm 18 /min 44.9 kg/m2 913901. 94 g 98 % 98 % 91 /min 126 mm[Hg] 82 mm[Hg] Evelin Rendon MA [facility] 15:09:04 Date Recorded Systolic blood pressure Diastolic blood pressure Provider Name and Address Organization Details Last Updated DateTime 02/18/2024 130 mm[Hg] 80 mm[Hg] ELISABET Genao Attn: Accounting,[address] [place], [address], [facility] 02/18/2024 15:42:47 Date Recorded Body height Body mass index (BMI) Body weight Oxygen saturation Oxygen saturation in Arterial blood by Pulse oximetry Heart rate Respiratory rate Systolic blood pressure Diastolic blood pressure Provider Name and Address Organization Details Last Updated DateTime 165.1 cm 43.4 kg/m2 586862. 61 g 97 % 97 % 105 /min 18 /min 128 mm[Hg] 82 mm[Hg] Evelin Rendon MA [facility] 16:16:31 Social History Question Answer Notes LastModified by Organizat ion Details LastModified Time Tobacco Smoking Status Never Smoker Evelin Rendon MA null, [facility] 02/18/2024 15:05:34 Do You Have An Advance Directive? No Information not available 02/18/2024 What Is Your Level Of Alcohol Consumption? None Information not available 02/18/2024 Are You Blind Or Do You Have Difficulty Seeing? No Glasses/ Information not available 02/18/2024 What Is Your Level Of Caffeine Consumption? Moderate Information not available 02/18/2024 In The 14 Days Before Symptom Onset, Have You Had Close Contact With A Laboratory-confir med COVID-19 While That Case Was Ill? No Information not available 02/18/2024 In The 14 Days Before Symptom Onset, Have You Had Close Contact With A Person Who Is Under Investigation For COVID-19 While That Person Was Ill? No Information not available 02/18/2024 Have You Been To An Area Known To Be High Risk For COVID-19? No Information not available 02/18/2024 Are You Deaf Or Do You Have Serious Difficulty Hearing? No Information not available 02/18/2024 What Type Of Diet Are You Following? REGULAR Information not available 02/18/2024 Are There Any Guns Present In Your Home? No Information not available 02/18/2024 What Was The Date Of Your Most Recent Tobacco Screening? 05/02/2024 Information not available 05/02/2024 What Is Your Relationship Status? Information not available 02/18/2024 Do You Use Your Seat Belt Or Car Seat Routinely? Yes Information not available 02/18/2024 Do You Have Smoke And Carbon Monoxide Detectors In Your Home? Yes Information not available 02/18/2024 Do You Feel Stressed (tense, Restless, Nervous, Or Anxious, Or Unable To Sleep At Night)? [id number] Information not available 02/18/2024 Do You Use Any Illicit Or Recreational Drugs? No Information not available 02/18/2024 Do You Use Sunscreen Routinely? Yes Information not available 02/18/2024 Has Tobacco Cessation Counseling Been Provided? No Information not available 02/18/2024 Do You Or Have You Ever Used Any Other Forms Of Tobacco Or Nicotine? No Information not available 02/18/2024 Sex: Female Functional Status Question Answer Note LastModified by Organizat ion Details LastModified Time Are you able to care for yourself? Yes Information not available 02/18/2024 What is your exercise level? Occasional Information not available 02/18/2024 Mental Status None recorded. Family History Relationship Description Onset Age of this Age Resolved Age Notes LastModified by Organization Details LastModified Time Mother Hypercholest erolemia [email or web address] Not available 2023 15:04:19 Brother Hypercholest erolemia tcarterma Not available 2023 15:04:19 Brother Hypercholest erolemia tcarterma Not available 2023 15:04:19 Brother Hypertensive disorder tcarterma Not available 2023 15:04:27 Brother Hypertensive disorder tcarterma Not available 2023 15:04:27 Father Hypertensive disorder tcarterma Not available 2023 15:04:27 Paternal Grandmother Dementia tcarterma Not available 15:04:47 Paternal Grandfather Dementia tcarterma Not available 15:04:47 Maternal Grandmother Diabetes mellitus tcarterma Not available 2023 15:04:51 Medical History Condition Response Coronary Artery Disease N Other N High Blood Pressure N Atrial Fibrillation N Kidney or Bladder Problems N Thyroid Problems N GI Problems N Depression N COPD N Blood Clots N Have you had a mammogram in the last yea r? N Skin Problems N Anemia N Heart Attack (IA) N Anxiety Disorder N Diabetes N Muscle, Joint, or Bone Problems N Seizures/Epilepsy N Have you had a colonoscopy in the last 1 0 years? N Acid Reflux (GERD) N Cancer N Stroke N Asthma N Allergies N Have you had a PSA blood test in the las t year? N High Cholesterol Y Hepatitis N Liver Disease N Headaches N Heart Failure N Osteoporosis N Gynecological History Statement/Question Response Menses Monthly Y Duration of Flow (days) 5 Flow Moderate Date of LMP 02/06/2024 LMP Approximate Obstetrics History GPAL:G 3 P 1 0 0 1 Type Value Full Term 1 Induced 0 Spontaneous 0 Premature 0 Living 1 Total 3 Past Encounters Encounter ID Performer Location Encounter Start Date Encounter Closed Date Diagnosis/Indication Diagnosis SNOMED-CT Code Diagnosis ICD10 Code Diagnosis Note [id number] ELISABET Genao [facility] [address] [place] [address] 02/18/2024 14:45:05 02/18/2024 16:01:10 Body mass index 40+ - severely obese 374667970 Z68.41 start Wegovy injectable therapy. no personal or family hx of Medullary thyroid cancer or MEN conditions . Obesity 312868213 E66.8 discussed healthy diet, exercise, controllin g carbohydra pretty and added sugars in the diet Prediabetes 850481656 R7 3.03 5.9% just recently end of december with gyne. on metformin Hyperlipidemia 39336044 E78.5 Patient has not really been taking her atorvastat in faithfully . 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 Some of this is just related to her anxiety which is being addressed today. [id number] ELISABET Genao [facility] [address] [place] [address] 05/02/2024 16:06:24 05/02/2024 16:30:57 Cough 38859562 R05.9 Start Robitussin with codeine cough syrup every 4 hours as needed to help with the aggressive cough. Start prednisone 40 mg daily for 5 days and start Z-Jonny therapy. Influenza and COVID testing is negative Fever 349637251 R50.9 Supportive care with Tylenol and ibuprofen alternatin g keep hydration. Nausea, vo miting and diarrhea 9707976 R11.2 Supportive care patient does have anti nausea if needed Health Concerns Section Related Observation LastModified by Organization Detai ls LastModified Time None Recorded Concern Status LastModified by Organization Details LastModified Time None Recorded Advance Directives Directive N: Payers Encounter Date Sequence Insurance Name Policy Number Policy Mullins Covered Member ID Mullins Member ID Guarantor Name 02/18/2024 1 [facility] [id number] Milton Dewey [id number] Chantale Dewey 05/02/2024 1 [facility] ([facility]) [id number] Milton Dewey [id number] Chantale Dewey Notes Date Note Type Note Provider Name and Address Organization Details Recorded Time 02/18/2024 text/html Anxiety/Depressi onRepo rted bypatient.Notes:Zacarias moody's anxiety is more related to her 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 She has no appetite the day of and does not eat much and has some growing anxiety during these times. She really is just looking for something very infrequent to use 2-3 times per month. Prediabetes recently diagnosed with an A1c of 5.9% found by her Gynecology nurse practitioner. She also has a history of PCOS. Some labs have been completed by that office ELISABET Genao Attn: Accounting,[address] [facility], [place], [address], [facility] 02/18/2024 19:06:12 05/02/2024 text/html Upper Respirator y SymptomsReported bypatient.Location:hea d; chest Quality:productive cough;colored phlegm;congested;hacki ng cough Severity:moderate Duration:In the last 7-10 days Context:non-smoker;for eign travel(Travel -flight travel state side) Associated Symptoms:yellow sputum;shortness of breath;wheezing;fatigu e;fever;vomiting;diarr hea;nauseaNotes:states that she might be through the stomach part now has been able to keep 500 danica down and had a bowel movement, States that she still has the chest pressure/tightness some mucus but not a lot, shortness of breathing, some wheezing, Some sore throat ELISABET Genao Attn: Accounting,[address] [place], [address], [place] [facility] 05/19/2024 00:25:16 OBGyn Episode No OBEpisode recorded.
--- OUTSIDE RECORDS SUMMARY | 2024-05-30 08:34 | XMS_ITS | Encounter Summary ---
Author Organization [facility] Address [address] [address] Care Team Providers Care Jewel Hole Rough Opener Name Role Phone No, Physician Primary Care Provider [phone] Encounter Details Date Type Department Care Team (Late st Contact Info) Description 11/19/2022 Orders Only [facility] Outpatient Center [place] [address] [place] [address] Moriah Thorpe PA [address] [place] [address] [address] [place] [address] Social History Tobacco Use Types Packs/Day Years [...] on filedocumented in this encounter Care Teams Jewel Hole Rough Opener Relationship Specialty Start Date End Date No, Physician PCP - General 11/19/22 documented as of this encounter
--- OUTSIDE RECORDS SUMMARY | 2024-05-30 08:34 | XMS_ITS | Encounter Summary ---
Author Organization [facility] Address [address] [place] [address] Care Team Providers Care Clinical Practice Consultant Name Role Phone No, Physician Primary Care Provider [phone] Encounter Details Date Type Department Care Team (Latest Contact Info) Description 11/19/2022 12:53 PM CDT - 11/19/2022 11:59 PM CDT Hospital Encounter [facility] [address] [place] [address] Cystitis with hematuria Discharge Disposition: Discharge to home or self care Social History Tobacco Use Types Packs/Day Years Used Date Smoking Tobacco: Never Assessed Comments No Sex and Gender Information Value Date Recorded Sex Assigned at Not on file Legal Sex Female 10:28 AM CDT Gender Identity Not on file Sexual Orientation Not on file documented as of this encounter Medications at Time of Discharge atorvastatin (LIPITOR) 40 mg tablet Take 1 tablet (40 mg total) by mouth daily 10/31/2022 busPIRone (BUSPAR) 7.5 mg tablet Take 1 tablet (7.5 mg total) by mouth 2 (two) times a day 10/31/2022 metFORMIN XR (GLUCOPHAGE XR) 500 mg 24 hr tablet Take 2 tablets (1,000 mg total) by mouth 2 (two) times a day 10/20/2022 norethindrone (MICRONOR) 0.35 mg tablet Take 1 tablet (0.35 mg total) by mouth daily 10/18/2021 cefdinir (OMNICEF) 300 mg capsule Take 1 capsule (300 mg total) by mouth 2 (two) times a day for 7 days 14 capsule 11/19/2022 11/26/2022 documented as of this encounter Discharge Disposition Disposition Code Departure Means Destination Discharge to home or self care documented in this encounter Miscellaneous Notes * Result Encounter Note - Moriah Thorpe PA - 11/19/2022 11:59 PM CDT Urine culture positive, sensitive to cefdinir as prescribed. Spoke w/ patient, she is already feeling much better. No further intervention required. documented in this encounter Plan of Treatment Not on file documented as of this encounter Procedures Procedure Name Priority Date/Time Associated Diagnosis Comments URINE CULTURE Routine 11/19/2022 12:53 PM CDT Cystitis with hematuria documented in this encounter Results * (ABNORMAL) Urine culture Urine, clean voided (11/19/2022 12:53 PM CDT) Report Final Report: Greater than or equal to 100,000 colonies/mL of Escherichia coli Plus growth of clinically insignificant bacterial matt. (.) MATT AMOS Comment:Testing performed by : [facility], [address] [facility] [place]., [address] Organism ESCHERICHIA COLI MATT Organism PLUS GROWTH OF CLINICALLY INSIGNIFICANT MATT. MATT Urine, clean voided 11/19/2022 12:53 PM CDT 11/19/2022 5:50 PM CDT Narrative MATT - 11/21/2022 11:23 AM CDT Testing performed by [facility] Microbiology Laboratory ([phone]) Organism Antibiotic Method Susceptibility Escherichia coli Ampicillin INTERPRETATION Susceptible Escherichia coli Cefazolin INTERPRETATION Susceptible Escherichia coli Nitrofurantoin INTERPRETATION Susceptible Escherichia coli Gentamicin INTERPRETATION Susceptible Escherichia coli Trimethoprim with Sulfamethoxazole IN TERPRETATION Susceptible Escherichia coli Meropenem INTERPRETATION Susceptible Escherichia coli Cefepime INTERPRETATION Susceptible Escherichia coli Ciprofloxacin INTERPRETATION Susceptible Escherichia coli Ceftazidime INTERPRETATION Susceptible Escherichia coli Ceftriaxone INTERPRETATION Susceptible Escherichia coli Piperacillin/Tazobactam INTERPRETATIO N Susceptible Escherichia coli Cephalexin INTERPRETATION Susceptible Escherichia coli Cefuroxime-axetil INTERPRETATION Susceptible Escherichia coli Cefdinir INTERPRETATION Susceptible Moriah BHANDARI [facility] MICROBIOLOGY - GENER AL ORDERABLES Final Result MATT [address] Department [place] [address] documented in this encounter Visit Diagnoses Diagnosis Cystitis with hematuria Unspecified cystitis documented in this encounter Care Teams Clinical Practice Consultant Relationship Specialty Start Date End Date No, Physician PCP - General 11/19/22 documented as of this encounter
--- OUTSIDE RECORDS SUMMARY | 2024-05-30 08:34 | XMS_ITS | Continuity of Care Document ---
Author Organization [facility], [facility] Kyle Roman Address [address] [place] [address] Care Team Providers Care Reflesher Name Role Phone VICKIE CROSS Primary Care Provider Unavailab le Assessment No assessment recorded. Plan of Treatment Reminders Order Date Submit Date Provider Last Modified By Organization Details Last Modified Time Details Appointments None recorded. Lab influenza virus A + B + SARS-CoV-2 (COVID19) Ag panel, rapid IA, upper respiratory specimen 2023 [email or web address] In-Office Order, Internal Use Only DO Not Attach Compendium DO Not Attach Compendium, Do Not Delete/merge, [id number] 00:24:39 Referral None recorded. Procedures None recorded. Surgeries None recorded. Imaging None recorded. Medication Orders codeine 10 mg-guaifene sin 100 mg/5 mL oral liquid 2023 [facility], [address], [place], [place], [id number], 4 16:29:43 prednisone 20 mg tablet 2023 024 [facility], [address], [place], [place], [id number], 4 16:29:43 Zithromax Z-Jonny 250 mg tablet 2023 024 [facility], [address], [place], [place], [id number], 16:29:42 Patient TargetsNo targets recorded. Patient InstructionsNo instructions recorded. Reason for Referral None Reported. Results Created Date Observation Date Name Description Value Unit Range Abnormal Flag Note LastModifiedBy Organization Detail LastModifiedTime 05/02/20 24 05/02/2024 influ jenna virus A + B + SARS- CoV-2 (COVI D19) Ag panel , rapid IA, upper respi rator y speci men Flu A negati ve Not Available In-Office Order Internal Use Only DO Not Attach Compendium DO Not Attach Compendium, Do Not Delete/merge, [id number] 05/02/2024 16:29:41 05/02/20 24 05/02/2024 influ jenna virus A + B + SARS- CoV-2 (COVI D19) Ag panel , rapid IA, upper respi rator y speci men Flu B negati ve Not Available In-Office Order Internal Use Only DO Not Attach Compendium DO Not Attach Compendium, Do Not Delete/merge, [id number] 05/02/2024 16:29:41 05/02/20 24 05/02/2024 influ jenna virus A + B + SARS- CoV-2 (COVI D19) Ag panel , rapid IA, upper respi rator y speci men Rapid SARS CoV 2 Ag, QL IA, respiratory specimen negati ve Not Available In-Office Order Internal Use Only DO Not Attach Compendium DO Not Attach Compendium, Do Not Delete/merge, [id number] 05/02/2024 16:29:41 Result Notes None recorded. Problems Name Problem SNOMED Code Status Onset Date Resolution Date Notes Provider Name and Address Organization Details Recorded Time Body mass index 40+ - severely obese 105656111 Active 2023 Evelin Rendon MA null, [place] - [place] 4 15:06:22 Prediabetes 824032007 Active 2023 ELISABET Genao Attn: Chloé perea,[address] [place], [address], [facility] - [facility] 4 15:13:37 Obesity 342117684 Active 2023 ELISABET Genao Attn: Chloé perea,[address] [facility], [place], [address], [facility] - [facility] 4 15:13:38 Hyperlipide lalo 20108249 Active 2023 ELISABET Genao Attn: Chloé g,[address] [facility], [place], [address], [facility] - [facility] 4 19:05:02 Anxiety 93968730 Active 2023 ELISABET Genao Attn: Chloé perea,[address] [facility], [place], [address], [facility] - [facility] 4 19:05:15 Positive screening for depression on PHQ-9 (Patient Health Questionnai re 9) 3112973779420 00 Active 2023 ELISABET Genao Attn: Chloé perea,[address] [facility], [place], [address], [facility] - [facility] 4 19:05:57 Problem Notes None recorded. Procedures Surgical History Date Name Laterality Status Provider Name and Address Organization Details Recorded Time 1 Tonsillectomy completed Evelin Rendon MA [facility] 02/18/2024 15:05:53 Appendectomy completed Evelin Rendon MA [facility] 02/18/2024 15:05:43 Imaging Results None recorded. Procedure Notes None recorded. Medical Equipment None Reported. Allergies Allergen ID Allergen Name Allergen Category Reaction Reaction Severity Criticality Documentation Date Start Date Code Code System Note Provider Name and Address Organization Details Recorded Time 17730820 almond allergeni c extract food Not available Not available Not available 02/18/2024 24412 7 RxNorm Evelin Rendon MA null, [facility] 4 15:01:58 Medications Name Sig Start Date [...] Not Available Vitals Date Recorded Body height Body mass index (BMI) Body weight Oxygen saturation Oxygen saturation in Arterial blood by Pulse oximetry Heart rate Respiratory rate Systolic blood pressure Diastolic blood pressure Provider Name and Address Organization Details Last Updated DateTime 4 165.1 cm 43.4 kg/m2 337782. 61 g 97 % 97 % 105 /min 18 /min 128 mm[Hg] 82 mm[Hg] Evelin Rendon MA [facility] 16:16:31 Social History Question Answer Notes LastModified by Organizat ion Details LastModified Time Tobacco Smoking Status Never Smoker Evelin Rendon MA null, [facility] 02/18/2024 15:05:34 Do You Have An Advance [...] Anxious, Or Unable To Sleep At Night)? OB2595-4 Information not available 02/18/2024 Do You Use [...] High Blood Pressure N Atrial Fibrillation N Thyroid Problems N Kidney or Bladder Problems N Depression N COPD N Blood Clots N GI Problems N Have you had a mammogram in the last yea r? N Skin Problems N Anemia N Heart Attack ([place]) N Anxiety Disorder N Diabetes N Muscle, Joint, or Bone Problems N Seizures/Epilepsy N Have you had a colonoscopy in the last 1 0 years? N Acid Reflux (GERD) N Cancer N Stroke N Asthma N Allergies N Have you had a PSA blood test in the las t year? N High Cholesterol Y Hepatitis N Liver Disease N Headaches N Osteoporosis N Heart Failure N Gynecological History Statement/Question Response Menses Monthly [...] SNOMED-CT Code Diagnosis ICD10 Code Diagnosis Note [id number] ELISABET Genao [facility] [place] [address] [place] [id number] 05/02/2024 16:06:24 05/02/2024 16:30:57 Cough 98503534 R05.9 Start Robitussin with codeine cough syrup every 4 hours as needed to help with the aggressive cough. Start prednisone 40 mg daily for 5 days and start Z-Jonny therapy. Influenza and COVID testing is negative Fever 613291177 R50.9 Supportive care with Tylenol and ibuprofen alternatin g keep hydration. Nausea, vo miting and diarrhea 9752103 R11.2 Supportive care patient does have anti nausea if needed Health Concerns Section Related Observation LastModified by Organization Detai ls LastModified Time None Recorded Concern Status LastModified by Organization Details LastModified Time None Recorded Payers Encounter Date Sequence Insurance Name Policy Number Policy Mullins Covered Member ID Mullins Member ID Guarantor Name 05/02/2024 1 [facility] [id number] Milton Dewey [id number] Chantale Dewey Notes Date Note Type Note Provider Name and Address Organization Details Recorded Time 05/02/2024 text/html Upper Respirator y SymptomsReported bypatient.Location:hea [...] sore throat ELISABET Genao Attn: Accounting,[address] [facility], [place], [address], [facility] 05/19/2024 00:25:16 OBGyn Episode No OBEpisode recorded.
--- OUTSIDE RECORDS SUMMARY | 2024-05-30 08:35 | XMS_ITS | Encounter Summary ---
Author Organization [facility] Address [address] [place] [address] Care Team Providers Care Auto Transmission Specialist Name Role Phone Unavailable Primary Care Provider Unavailabl e Encounter Details Date Type Department Care Team (Late st Contact Info) Description 05/29/2023 External Device Data [place] ABSTRACTION Provider, Abstract NO ADDRESS ON FILE Social History Tobacco Use Types Packs/Day Years Used Date Smoking Tobacco: Never Assessed Sex and Gender Information Value Date Recorded Sex Assigned at Not on file Gender Identity Not on file Sexual Orientation Not on file documented as of this encounter Plan of Treatment Not on file documented as of this encounter Visit Diagnoses Not on filedocumented in this encounter
--- OUTSIDE RECORDS SUMMARY | 2024-05-30 08:35 | XMS_ITS | Encounter Summary ---
Author Organization [facility] Address [address] [place] [address] Care Team Providers Care Merchandise Director Name Role Phone Unavailable Primary Care Provider Unavailabl e Encounter Details Date Type Department Care Team (Late st Contact Info) Description 09/05/2023 External Device Data ST[place] ABSTRACTION Provider, Abstract [...]
--- OUTSIDE RECORDS SUMMARY | 2024-05-30 08:35 | XMS_ITS | Encounter Summary ---
Author Organization [facility] Address [address] [address] Care Team Providers Care Tug Boat Engineer Name Role Phone No, Physician Primary Care Provider [phone] Reason for Visit * Reason Comments UTI Urine frequency and burning Encounter Details Date Type Department Care Team (Late st Contact Info) Description 11/19/2022 11:00 AM CDT Office Visit [facility] Outpatient Center [address] [address] Moriah Thorpe PA [address] [place] [address] [address] [place], [place] [id number] Cystitis with hematuria (Primary Dx) Social History Tobacco Use Types Packs/Day Years [...] Mass Index 42.27 11/19/2022 10:41 AM CDT documented in this encounter Patient Instructions * Patient Instructions* Moriah Thorpe PA - 11/19/2022 11:00 AM CDT -Take all antibiotic medications as prescribed. -We will notify you of urine culture results -Push fluids, especially water. This also helps prevent future infections. -Urinate when you feel the urge. Do not hold your urine. Urinate as soon as you feel you have to. -Cranberry juice has been shown to promote healing, use at your discretion. -Make sure to always wipe from front to back after urinating. -If you are sexually active make sure to urinate Before AND after sex to help prevent bladder infections. -Avoid intercourse until your symptoms are resolved for one week. -Do not drink alcohol, caffeine, and citrus juices. These can irritate your bladder and increase your symptoms. Seek care (go to Urgent Care or ER) immediately if: ?? You are urinating very little or not at all. ?? You are vomiting. ?? You have a high fever with shaking chills. ?? You have side or back pain that gets worse. ??Contact your primary care doctor or TIEDOWN OPERATOR if: ?? You have a fever. ?? You have white or yellow discharge from your vagina. ?? You do not feel better after 2 days of taking antibiotics. * Attachments The following attachments cannot be sent through Care Everywhere. * Urinary Tract Infection in Women (AfterCare(R) Instructions(ER/ED)) (Mac[place]) documented in this encounter Ordered Prescriptions Prescription Sig Dispense Quantity Refills Last Filled Start Date End Date cefdinir (OMNICEF) 300 mg capsule Take 1 capsule (300 mg total) by mouth 2 (two) times a day for 7 days 14 capsule 11/19/2022 3 documented in this encounter Progress Notes * Moriah Thorpe PA - 11/19/2022 11:00 AM CDT Images from the original note were not included. Subjective/Objective Patient ID: Chantale Garcia is a 27 y.o. female. Chief Complaint UTI (Urine frequency and burning) Pt presents w/ urinary symptoms x 2 days. She c/o dysuria, frequency, urgency, hesitancy, suprapubic pressure, nausea, HAQUE. No fever, vomiting. Had intermittent bilateral flank soreness earlier this week but that has since resolved. Took ibuprofen yesterday w/ mild relief. Review of Systems All systems reviewed and are negative or non contributory for this patient's presentation today other than as stated in the HPI . Physical Exam Constitutional: General: She is not in acute distress. HENT: Head: Normocephalic and atraumatic. Mouth/Throat: Pharynx: Oropharynx is clear. Eyes: Pupils: Pupils are equal, round, and reactive to light. Cardiovascular: Rate and Rhythm: Normal rate. Pulmonary: Effort: Pulmonary effort is normal. Abdominal: Tenderness: There is no right CVA tenderness or left CVA tenderness. Musculoskeletal: General: Normal range of motion. Cervical back: Normal range of motion. Skin: General: Skin is warm and dry. Neurological: General: No focal deficit present. Mental Status: She is alert and oriented to person, place, and time. Psychiatric: Mood and Affect: Mood normal. Behavior: Behavior normal. Vitals: 11/19/22 1041 BP: 112/72 BP Location: Right arm Patient Position: Sitting Pulse: 97 Temp: 36.6 ??C (97.9 ??F) TempSrc: Oral SpO2: 99% Weight: 115.2 kg (254 lb) Height: 165.1 cm (5' 5 ) Assessment/Plan -UA consistent w/ UTI -start Cefdinir, will follow culture Diagnoses and all orders for this visit: Cystitis with hematuria (Primary) - POCT urinalysis dipstick - Urine culture Urine, clean voided; Future Other orders - cefdinir (OMNICEF) 300 mg capsule; Take 1 capsule (300 mg total) by mouth 2 (two) times a day for7 days Recent Results (from the past 4 hour(s)) POCT urinalysis dipstick Collection Time: 11/19/22 10:54 AM Result Value Ref Range Color, Urine, POC Yellow Clarity, ur, POC Clear Clear Glucose, ur, POC Negative Negative MG/DL Bilirubin, ur, POC Negative Negative, Small, Moderate, Large Ketones, ur, POC Negative Negative Specific [place], POC 1.030 1.003 - 1.030 Blood, ur, POC Moderate (A) Negative pH, ur, POC 7.0 5.0 - 8.0 Protein, ur, POC 30. (A) Negative Urobilinogen, urine, POC 0.2 0.2 - 1.0 mg/dL Nitrite, ur, POC Negative Negative Leukocytes, ur, POC Moderate (A) Negative Lot Number [id number] Disposition Treatment plan including expectations, follow up, and return precautions discussed with patient/parent, verbalizes understanding. Medication dosage, use, and potential adverse reactions discussed with patient/parent. Advised to follow up with PCP if symptoms do not resolve as expected or sooner if condition worsens. Signs/symptoms warranting ER evaluation reviewed. Patient and/or guardian was given an opportunity to ask questions, questions answered. ELISABET Leal 11/19/22 11:09 AM documented in this encounter Miscellaneous Notes * Addendum Note - Kathia Steward MA - 11/19/2022 11:00 AM CDTAddended by: KATHIA STEWARD on: 11/19/2022 12:30 PM Modules accepted: Orders documented in this encounter Plan of Treatment Not on file documented as of this encounter Procedures Procedure Name Priority Date/Time Associated Diagnosis Comments POCT URINALYSIS DIPSTICK Routine 11/19/2022 10:54 AM CDT Cystitis with hematuria documented in this encounter Results * (ABNORMAL) Urine culture Urine, clean voided (11/19/2022 12:53 PM CDT) Report Final Report: Greater than or equal to 100,000 colonies/mL of Escherichia coli Plus growth of clinically insignificant bacterial matt. (.) MATT AMOS Comment:Testing performed by : [facility], [address] [facility], [place]., [address] Organism ESCHERICHIA COLI MATT Organism PLUS GROWTH OF CLINICALLY INSIGNIFICANT MATT. MATT Urine, clean voided 11/19/2022 12:53 PM CDT 11/19/2022 5:50 PM CDT Narrative MATT AMOS - 11/21/2022 11:23 AM CDT Testing performed by [facility] Microbiology Laboratory ([phone]) Organism Antibiotic Method Susceptibility Escherichia coli Ampicillin [...] - GENER AL ORDERABLES Final Result MATT [address] Department [place] [address] * (ABNORMAL) POCT urinalysis dipstick (11/19/2022 10:54 AM CDT) Color, Urine, POC Yellow Clarity, ur, POC Clear Clear Glucose, ur, POC Negative Negative MG/DL Bilirubin, ur, POC Negative Negative, Small, Moderate, Large Ketones, ur, POC Negative Negative Specific [place], POC 1.030 1.003 - 1.030 Blood, ur, POC Moderate(A) Negative pH, ur, POC 7.0 5.0 - 8.0 Protein, ur, POC 30.(A) Negative Urobilinogen, urine, POC 0.2 0.2 - 1.0 mg/dL Nitrite, ur, POC Negative Negative Leukocytes, ur, POC Moderate(A) Negative Lot Number [id number] Urine 11/19/2022 10:5 4 AM CDT Moriah BHANDARI POINT OF CARE TEST ORDER VIRAJ Final Result documented in this encounter Visit Diagnoses Diagnosis Cystitis with hematuria- Primary Unspecified cystitis Cystitis with hematuria Unspecified cystitis documented in this encounter Historical Medications * This list may reflect changes made after this encounter. busPIRone (BUSPAR) 7.5 mg tablet Take 1 tablet (7.5 mg total) by mouth 2 (two) times a day 10/31/2022 norethindrone (MICRONOR) 0.35 mg tablet Take 1 tablet (0.35 mg total) by mouth daily 10/18/2021 metFORMIN XR (GLUCOPHAGE XR) 500 mg 24 hr tablet Take 2 tablets (1,000 mg total) by mouth 2 (two) times a day 10/20/2022 atorvastatin (LIPITOR) 40 mg tablet Take 1 tablet (40 mg total) by mouth daily 10/31/2022 added in this encounter Care Teams Tug Boat Engineer Relationship Specialty Start Date End Date No, Physician PCP - General 11/19/22 documented as of this encounter
--- OUTSIDE RECORDS SUMMARY | 2024-05-30 08:35 | XMS_ITS | Continuity of Care Document ---
Author Organization [facility] Address [address] [place] [address] Phone Care Team Providers Care Group Home Paraprofessional Name Role Phone Silver Branch DO Unavailable Unavailable Allergies, Adverse Reactions, Alerts Substance Reaction Status Criticality No Known Allergies Active No Inform ation Medications Medication Instructions Dosage Effective Dates (start - stop) Status Comments VITAMINS (unknown strength) 4 po qd Not Available - Active MAGNESIUM (unknown strength) Not Available - Active Vitamin D3 1,000 unit tablet take 1 tablet by oral route every day 1 tablet - Active Results Test Name Date and Time Measure Units Reference Range Abnormal Flag Status Comments Panel Description: CBC W Auto Differential panel - Blood Final WBC 14:20:30 9.90 K/uL 3.80-10.80 Final Performed by:[facility] ([facility]) RBC 14:20:30 5.12 M/uL 3.80-5.10 H Final Performed by:[facility] ([facility]) HGB 14:20:30 12.7 g/dL 11.7-15.5 Final Performed by:[facility] ([facility]) HCT 14:20:30 40.3 % 35.0-45.0 Final Performed by:[facility] ([facility]) MCV 14:20:30 78.7 fL 80.0-100.0 L Final Performed by:[facility] ([facility]) MCH 14:20:30 24.8 pg 27.0-33.0 L Final Performed by:[facility] ([facility]) MCHC Dec-12-20 17 14:20:30 31.5 g/dL 32.0-36.0 L Final Performed by:[facility] ([facility]) RDW 14:20:30 15.4 % 11.0-15.0 H Final Performed by:[facility] ([facility]) PLT 17 14:20:30 325 K/uL 150-400 Final Performed by:[facility] ([facility]) MPV 17 14:20:30 9.5 fL 6.0-12.0 Final Performed by:[facility] ([facility]) IG # 17 14:20:30 0.24 K/uL 0.00-0.05 H Final Performed by:[facility] ([facility]) IG % 17 14:20:30 2.4 % 0.0-0.9 H Final Performed by:[facility] ([facility]) Neut # 14:20:30 6.15 K/uL 1.50-7.80 Final Performed by:[facility] ([facility]) Neut % 17 14:20:30 62.1 % 40.0-75.0 Final Performed by:[facility] ([facility]) Lym # 17 14:20:30 2.76 K/uL 0.85-3.90 Final Performed by:[facility] ([facility]) Lym % 17 14:20:30 27.9 % 16.0-46.0 Final Performed by:[facility] ([facility]) [place] # 17 14:20:30 0.58 K/uL 0.20-1.10 Final Performed by:[facility] ([facility]) [place] % 17 14:20:30 5.9 % 0.0-12.0 Final Performed by:[facility] ([facility]) Eos # 17 14:20:30 0.14 K/uL 0.02-0.50 Final Performed by:[facility] ([facility]) Eos % 17 14:20:30 1.4 % 0.0-7.0 Final Performed by:[facility] ([facility]) Baso # 17 14:20:30 0.03 K/uL 0.00-0.20 Final Performed by:[facility] ([facility]) Baso % 14:20:30 0.3 % 0.0-2.0 Final Performed by:[facility] ([facility]) NRBC # 17 14:20:30 0.000 K/uL 0.000-0.012 Final Performed by:[facility] ([facility]) NRBC % 14:20:30 0.0 % 0.0-0.2 Final Performed by:[facility] ([facility]) Panel Description: Comprehensive Metabolic Nya l Sodium 14:20:30 135 mmol/L 135-145 Final Performed by:[facility] ([facility]) Potassium 14:20:30 4.1 mmol/L 3.5-5.3 Final Performed by:[facility] ([facility]) Chloride 14:20:30 100 mmol/L 98-107 Final Performed by:[facility] ([facility]) CO2 14:20:30 21 mEq/L 19-30 Final Performed by:[facility] ([facility]) Glucose 14:20:30 89 mg/dL 65-99 Final Performed by:[facility] ([facility]) BUN 14:20:30 16 mg/dL 7-19 Final Performed by:[facility] ([facility]) Creatinine 14:20:30 0.62 mg/dL 0.60-1.10 Final Performed by:[facility] ([facility]) BUN/Crea 14:20:30 26 Ratio 6-25 H Final Performed by:[facility] ([facility]) Calcium 14:20:30 9.8 mg/dL 8.4-10.2 Final Performed by:[facility] ([facility]) Albumin 14:20:30 4.7 g/dL 3.5-5.0 Final Performed by:[facility] ([facility]) Protein, T 14:20:30 7.3 g/dL 6.3-8.2 Final Performed by:[facility] ([facility]) Globulin 14:20:30 2.6 Calc 1.4-3.5 Final Performed by:[facility] ([facility]) A/G 14:20:30 1.8 Ratio 0.8-2.0 Final Performed by:[facility] ([facility]) Bilirubin, T 14:20:30 0.3 mg/dL 0.2-1.3 Final Performed by:[facility] ([facility]) Alk Phos 14:20:30 84 U/L 38-126 Final Performed by:[facility] ([facility]) ALT 14:20:30 52 U/L 6-52 Final Performed by:[facility] ([facility]) AST 14:20:30 30 U/L 10-36 Final Performed by:[facility] ([facility]) EGFR 14:20:30 >60 mL/min/1. 73m2 >60 Final Performed by:[facility] ([facility]) EGFRAA. 14:20:30 >60 mL/min/1. 73m2 >60 Final Performed by:[facility] ([facility]) Panel Description: Thyrotrop in [Units/volume] in Serum or Plasma by Detection limit <= 0.05 mIU/L Final TSH 14:20:30 2.03 uIU/mL 0.47-4.68 Final Performed by:[facility] ([facility]) Advance Directives Directive Yes / No Effective Date File Name No Information Encounters Encounter Description Practice Location Reason(s) For Visit Diagnoses Date Provider Providers Copied on Encounter [facility], [address], [place], [place], [id number], [place] tel:[phone] [facility] Body mass index (BMI) 40.0-44.9, adultEdema, unspecified typeDiabetes mellitus screeningChronic fatigueBinge eating disorderHistory of depression [address]. [address], [address], [place], [place], [id number] , [place]. tel: [phone] Referring Provider: Silver Branch, [address], [place], [address] . tel:[phone] Family History Family Member Type Diagnosis Age At Onset Problem (finding) Family history of Diabe pretty mellitus Problem (finding) Family history of Blood disorder Father Problem (finding) hypertension Brother Problem (finding) Allergies Brother Problem (finding) raised blood lipids Problem (finding) Family history of osteo porosis Problem (finding) Family history of malignant neoplasm of lung Problem (finding) Family history of Obesi ty Mother Problem (finding) Mental illness Brother Problem (finding) alcoholism Problem (finding) Family history of depre ssion Problem (finding) Family history of alcoh olism Problem (finding) Family history of Leuke lalo Mother Problem (finding) osteoporosis Mother Problem (finding) osteoarthritis Problem (finding) Family history of osteo arthritis Brother Problem (finding) hypertension Mother Problem (finding) raised blood lipids Brother Problem (finding) depression Mother Problem (finding) depression Brother Problem (finding) Eczema Problem (finding) Family history of hyper tension Problem (finding) Family history of strok e Problem (finding) Family history of Menta l illness Problem (finding) Family history of alzhe juanito's disease Immunizations Vaccine Date Status Comments Fluzone Quad , preservative free, split virus, 0.5mL dosage administered Note: pt recall ; So urce: Source Unspecified Tdap administered Note: pt recall ; Source: Source Unspecified Payers Payer name Insurance type Covered constitution party ID Authoriza tion(s) BCBS INACTIVE OUT OF STATE BL [id number] Social History Type Description Quantity Date Captured Comments Alcohol Use Details liquor and wine Caffeine Use Details coffee Tobacco Use Status No Information Smoking Status Never smoker Sex Female Vital Signs Date / Time: Height Weight BMI Pulse Rate Blood Pressure Temperature Respiratory Rate Body Surface Area Head Circumference Head Circ. Percentile Wt./Frandy. Percentile BMI percentile Pulse Ox Inhaled Ox 1:37 PM 64.75 in 110.586 kg (243.80 lbs) 40.8 8 kg/m eter (2) 101 /min 118/82 mm[Hg] 98.10 F 16 /min 97 % Chief Complaint And Reason For Visit No Information Reason For Referral Reason For Referral No Information History Of Present Illness Encounter Date Complaint History Of Prese nt Illness No Information Functional Status Date Functional Assessmen t No Information Medications Administered Medication Instructions Dosage Effective Dates (start - stop) Status Comments No Drug Therapy Prescribed Instructions Date Instruction Additional Infor mation No Information Assessments Type Assessment Date No Information Patient Care Teams Name Effective Dates (start - stop) Status Members No Information
--- OUTSIDE RECORDS SUMMARY | 2024-05-30 08:35 | XMS_ITS | Continuity of Care Document ---
Author Organization [facility] Address [address] [place] [address] Phone Care Team Providers Care Flight Steward Name Role Phone Petar OD, Huy Unavailable Unavailable Allergies, Adverse Reactions, Alerts Substance Reaction Status Criticality No Known Drug Allergies Active No I nformation Medications Medication Instructions Dosage Effective Dates (start - stop) Status Comments Xanax 0.25 mg tablet take 1 tablet by oral route 2 times every day PRN - Active FLUOXETINE HCL (unknown strength) Not Available - Active Procedures Procedure Date CONTACT LENS, DISPOSABLE POSTAGE CONTACT LENS, ONE USE DISPOSABLE 2016 POSTAGE EYE EXAM ESTABLISHED PAT, MEDICAL REFRACTION OPTIONAL UPDATE CONTACT LENS, DISPOSABLE CONTACT LENS, ONE USE DISPOSABLE 2014 CONTACT LENS, ONE USE DISPOSABLE 2014 CONTACT LENS, DISPOSABLE EYE EXAM ESTABLISHED PATIENT, MEDICAL Ju REFRACTION OPTIONAL UPDATE CONTACT LENS EXAM EYE EXAM ESTABLISHED PATIENT, MEDICAL Ja REFRACTION OPTIONAL UPDATE CONTACT LENS EXAM CONTACT LENS, DISPOSABLE EYE EXAM, EXISTING PATIENT VISION REFRACTION OPTIONAL UPDATE INCLUDED CONTACT LENS EXAM CONTACT LENS, DISPOSABLE CONTACT LENS, DISPOSABLE CONTACT LENS, DISPOSABLE EYE EXAM ESTABLISHED PATIENT, MEDICAL De REFRACTION OPTIONAL UPDATE CONTACT LENS EXAM Advance Directives Directive Yes / No Effective Date File Name No Information Encounters Encounter Description Practice Location Reason(s) For Visit Diagnoses Date Provider Providers Copied on Encounter [facility], [address] [place] [address], [id number], [place] tel:[phone] [facility] No Information 8 Petar Son. [address] [place] [address], [id number], [place]. tel:[phone] [facility], [address] [place] [address], [id number], [place] tel:[phone] [facility] No Information 7 Petar Son. [address] [place] [address], [id number], [place]. tel:[phone] [facility], [address] [place] [address], [id number], [place] tel:[phone] [facility] headaches (chief complaint)he adaches (chief complaint) Dry eye syndrome of bilateral lacrimal glandsMyopia, bilateral 7 Petar Son. [address] [place] [address], [id number], [place]. tel:[phone] [facility], [address] [place] [address], [id number], [place] tel:[phone] [facility] No Information 5 No Information [facility], [address] [place] [address], [id number], [place] tel:[phone] [facility] No Information 5 No Information [facility], [address] [place] [address], [id number], [place] tel:[phone] [facility] No Information 5 No Information [facility], [address] [place] [address], [id number], [place] tel:[phone] [facility] no problems with vision and no complaints (chief complaint)no problems with vision and no complaints (chief complaint) Meibomian gland dysfunction 5 No Information [facility], [address] [place] [address], [id number], [place] tel:[phone] [facility] decreased vision (chief complaint) Myopia 4 No Information [facility], [address] [place] [address], [id number], [place] tel:[phone] [facility] No Information 4 No Information [facility], [address] [place] [address], [id number], [place] tel:[phone] [facility] slight decreased vision (chief complaint) Myopia 2 Nicolás Elif. [address] [place] [address], [id number], [place]. tel:[phone] [facility], [address] [place] [address], [id number], [place] tel:[phone] [facility] No Information 3 0-201 1 Sheila Llamas. [address] [place] [address], [id number], [place]. tel:[phone] [facility], [address] [place] [address], [id number], [place] tel:[phone] [facility] No Information Dec-1 0-201 0 Sheila Llamas. [address] [place] [address], [id number], [place]. tel:[phone] [facility], [address] [place] [address], [id number], [place] tel:[phone] [facility] No Information Dec-0 8-201 0 Imes Farhad. [address] [facility], [place], [place], [id number], [place]. tel:[phone] Family History Family Member Type Diagnosis Age At Onset Problem (finding) No Family history of Re tinal Disorders Problem (finding) No Family history of Gl aucoma Problem (finding) No Family history of He art Disease Problem (finding) No Family history of Ar thritis Problem (finding) No Family hist ory of Macular Degeneration Problem (finding) No Family history of Ca taracts Problem (finding) No Family history of Re spiratory Disease Problem (finding) No Family history of Di abetes mellitus Problem (finding) No Family history of St roke Problem (finding) No Family history of As thma Problem (finding) No Family history of St rabismus Mother Problem (finding) Alive and well Problem (finding) No Family history of HB P Payers Payer name Insurance type Covered republican ID Authoriza tion(s) No Information Social History Type Description Quantity Date Captured Comments Sex Female Smoking Status No Information Chief Complaint And Reason For Visit No Information Reason For Referral Reason For Referral No Information History Of Present Illness Encounter Date Complaint History Of Prese nt Illness headaches The 21 Year old female presents for f/u Myopia OU. Pt reports headaches behind eyes since last exam 2 years ago. Vision good, stable and constant D & N c gls. Headaches occur occasionally. No eye meds OU. no problems with vis ion and no complaints The 19 Year old female presents for f/u evaluation of Myopia OU. Pt reports she is needing more CL. Pt reports no problems with vision and no complaints in the right eye and left eye since last exam 1 year ago. Vision good, stable and constant D & N c gls OU. The patient denies pain or discomfort OU. Pt denies using eye meds and gtts. Functional Status Date Functional Assessmen t No Information Instructions Date Instruction Additional Infor horacio Impression/Plan - Ey es look healthy OU. No signs of mac degen, glaucoma, or cataracts. Optional gls. rx update available. CLS rx updated to daily cls. RTC in 1 year unless having problems. Follow up - Return i n 1 year with [facility] for Refract T & D. 1 year c BSG CL RTD Related to M eibomian gland dysfunction Follow up - 1 year c BSG CL RTD Related to Meibomian gland dysfunction Impression/Plan - Ey es look healthy OU. No signs of mac degen, glaucoma, or cataracts. Pt. has a backed up oil gland in the RLL. Pt. can use WWCs to help treat this. Optional gls. rx update available. Trial CL dispensed today. RTC in 1 year unless having problems. Related to Meibomian gland dysfunction - Return in 1 year w [facility] for C/L Ref T & D. Related to Myopia Myopia OU. Condition : established, stable. - Eyes look healthy today; no signs of Glaucoma or ARMD OU. Optional glasses update available. Pt to follow up yearly. Pt TCI for any questions/concerns. Educational materials provided:none needed. [facility] to My[facility] Related to Myopia Myopia OU. Condition : established, stable. - Eyes are healthy. Optional update on backup glasses. Small change in contact lens prescription. Patient is free to order. Educational materials provided:none needed. Related to Myopia Assessments Type Assessment Date No Information Patient Care Teams Name Effective Dates (start - stop) Status Members No Information
--- OUTSIDE RECORDS SUMMARY | 2024-05-30 08:35 | XMS_ITS | Clinical Summary ---
Author Organization [facility] Address [address] Tenorio: Felicitas Prelumelissa ADT EBONY WEBBER [address] Care Team Providers Care Director [facility] Name Role Phone Unavailable Primary Care Provider Unavailabl e Medications Medication Sig Dispensed Refills Start Date End Date Status norethindrone, Contraceptive, (Ortho Micronor) 0.35 mg Tablet Take 1 Tablet by mouth daily. 84 Tablet 4 10/18/2021 Active norethindrone, Contraceptive, 0.35 mg Tablet Take 1 tablet by mouth daily. 84 Tablet 2 01/31/2022 Active azithromycin (Zithromax Z-Jonny) 250 mg tablet TAKE 2 TABLETS (500 MG) BY MOUTH ON DAY 1, THEN 1 TABLET (250 MG) BY MOUTH ONCE DAILY FOR 4 DAYS 6 Tablet 10/12/2022 Active norethindrone, Contraceptive, 0.35 mg Tablet Take 1 tablet by mouth daily 84 Tablet 4 10/20/2022 Active atorvastatin (LIPITOR) 40 mg tablet Take 1 Tablet (40 mg) by mouth daily. 90 Tablet 3 10/31/2022 Active busPIRone (BUSPAR) 7.5 mg Tablet Take 1 Tablet (7.5 mg) by mouth 2 times daily. 60 Tablet 5 10/31/2022 Active ciprofloxacin HCl (CIPRO) 500 mg tablet Take 1 Tablet (500 mg) by mouth 2 times daily. 14 Tablet 12/21/2022 Active atorvastatin (LIPITOR) 40 mg tablet Take 1 Tablet (40 mg) by mouth daily. 90 Tablet 1 06/14/2023 Active lidocaine (lidocaine viscous 2%) 2 % Solution Gargle and spit 5 mL by mouth 3-4 times daily for 5 days. Do not swallow. 100 mL 11/16/2023 Active neomycin-polymyxi n-dexAMETHasone (MAXITROL) 3.5 mg/g-10,000 unit/g-0.1 % ointment Instill small amount into affected eye four times a day for 7 days. 3.5 Gram 11/27/2023 Active medroxyPROGESTERo ne (PROVERA) 10 mg tablet Take 1 Tablet (10 mg) by mouth daily at bedtime FOR 10 NIGHTS OR UNTIL PERIOD STARTS. 10 Tablet 1 01/16/2024 Active metFORMIN (GLUCOPHAGE XR) 500 mg Extended Release 24 hour tablet TAKE 2 TABLETS BY MOUTH TWICE DAILY 360 Tablet 4 01/30/2024 Active ALPRAZolam (XANAX) 0.25 mg tablet Take 1 Tablet (0.25 mg) by mouth 2 times daily as needed for travel anxiety 30 Tablet 1 02/18/2024 Active semaglutide, weight loss, (Wegovy) 1 mg/0.5 mL Pen Injector Inject 1 mg every week by subcutaneous route. 2 mL 04/09/2024 Active codeine-guaiFENes in (ROBITUSSIN-AC) 10-100 mg/5 mL Liquid Take 10 mL by mouth every 4 hours as needed. 118 mL 05/02/2024 Active semaglutide, weight loss, (Wegovy) 1.7 mg/0.75 mL Pen Injector Inject 0.75 mL (1.7 mg) by subcutaneous injection every 7 days. 3 mL 05/12/2024 Active predniSONE (DELTASONE) 20 mg tablet Take 2 Tablets (40 mg) by mouth daily for 5 days. 10 Tablet 05/02/2024 05/08/2024 azithromycin (Zithromax Z-Jonny) 250 mg tablet Take 2 Tablets (500 mg) by mouth daily for 1 day, THEN 1 Tablet (250 mg) daily for 4 days. 6 Tablet 05/02/2024 05/08/2024 Immunizations Name Administration Dates Next Due INFLUENZA VACCINE TRIVALENT SPLIT VIRUS, (6 MOS UP), 0.5ML (PF), IM 02/25/2024 Social History Tobacco Use Types Packs/Day Years Used Date Smoking Tobacco: Never Assessed Sex and Gender Information Value Date Recorded Sex Assigned at Not on file Gender Identity Not on file Sexual Orientation Not on file Plan of Treatment Health Maintenance Due Date Last Done Comments DTAP/TDAP/TD VACCINES (1 - Tdap) 2013 HEPATITIS B VACCINES (1 of 3 - 19+ 3-dose series) 2013 CERVICAL CANCER SCREENING 02/12/2024 INFLUENZA VACCINE Completed 02/25/2024 HPV VACCINES Aged Out No longer eligi ble based on patient's age to complete this topic PNEUMOCOCCAL VACCINE 0-64 YEARS Aged Out No longer eligible based on patient's age to complete this topic
--- OUTSIDE RECORDS SUMMARY | 2024-05-30 20:16 | XMS_ITS | Encounter Summary ---
Author Organization [facility] Address [address] [place] [address] Care Team Providers Care Social Scientist Name Role Phone Unavailable Primary Care Provider Unavailabl e Reason for Visit * Reason Comments Pain Back * Auth/Cert Specialty Diagnoses / Procedures Referred By Kofi t Referred To Contact Referral ID Status Reason Start Date Expiration Date Visits Re quested Visits Authorized [id number] 1 1 Encounter Details Date Type Department Care Team (Latest Contact Info) Description 01/31/2016 6:39 AM CDT - 02/01/2016 4:52 PM CDT Hospital Encounter [facility] [address] [id number] [place] [address] [facility] [address] [place] [address] Obstetrics Discharge Disposition: Home or [...] questions answered. Pt placed on monitoring machine [id number]. Baseline heart rate 150 with moderate variability [...] fluid. Will continue to monitor.Moriah Márquez RN 1775-reactive strip reviewed by Dr Hair. Ok to [...] Has been getting care from a nurse quilting supervisor at home in [place]. Vitals: 01/31/16 0815 [...] Exam House OB Note 01/31/2016 Chantale Garcia [id number] Subjective: Chantale Garcia is a 20 y.o. [...] - 10.7 x10E9/L 02/01/2016 7:42 AM CDT [facility] WBC Corrected x10E9/L 02/01/2016 7:42 AM CDT [facility] RBC 3.94 3.80 - 5.20 x10E12/L 02/01/2016 7:42 AM CDT [facility] Hemoglobin 10.7(L) 12.0 - 15.6 gm/dL 02/01/2016 7:42 AM CDT [facility] Hematocrit 31.3(L) 35.9 - 45.5 % 02/01/2016 7:42 AM CDT [facility] MCV 79.4(L) 80.7 - 98.3 fl 02/01/2016 7:42 AM CDT [facility] MCH 27.2 26.7 - 34.0 pg 02/01/2016 7:42 AM CDT [facility] MCHC 34.2 30.8 - 35.9 gm/dL 02/01[facility]2016 [facility] Platelet Count 286 153 - 416 x10E9/L 02/01/2016 7:42 AM CDT [facility] RDW-CV 14.7 12.1 - 14.9 % 02/01/2016 7:42 AM CDT [facility] MPV 9.4 9.4 - 12.9 fl 02/01/2016 [facility] Neutrophils % 70.8 44.0 - 73.0 % 02/01/2016 7:42 AM CDT [facility] Lymphocytes % 16.8(L) 20.0 - 43.0 % 02/01/2016 7:42 AM CDT [facility] Monocytes % 7.2 5.0 - 13.0 % 02/01/2016 7:42 AM CDT [facility] Eosinophils % 0.4 0.0 - 6.0 % 02/01/2016 7:42 AM CDT [facility] Basophils % 0.3 0.0 - 2.0 % 02/01/2016 7:42 AM CDT [facility] Immature Granulocytes 4.5(H) 0 - 1 % 02/01/2016 7:42 AM CDT [facility] Neutrophil Absolute 9.06(H) 2.01 - 7.14 x10E9/L 02/01/2016 7:42 AM CDT [facility] Lymphocytes Absolute 2.15 1.07 - 3.94 x10E9/L 02/01/2016 7:42 AM CDT [facility] Monocytes Absolute 0.92 0.26 - 1.07 x10E9/L 02/01/2016 7:42 AM CDT [facility] Eosinophils Absolute 0.05 0 - 0.47 x10E9/L 02/01/2016 7:42 AM CDT [facility] Basophils Absolute 0.04 0 - 0.08 x10E9/L 02/01/2016 7:42 AM [facility] Immature Granulocytes Absolute 0.57(H) 0.00 - 0.06 x10E9/L 02/01/2016 7:42 AM [facility] nRBC Auto 0 /100 WBC 02/01/2016 7:42 AM CDT [facility] Blood BLOOD SPECIMEN / Unknown Lab Venipuncture / Unknown 02/01/2016 6:57 AM CDT 02/01/2016 7:38 AM CDT Lisa Buckley MD LAB - HEMATOLOGY ORD ERABLES [facility] [address] [place] [place] [address] * CULTURE URINE (01/31/2016 7:09 AM CDT) Culture <10,000 CFU/mL urogenital matt JIE 02/01/2016 12:16 PM CDT [facility] Urine URINE SPECIMEN OBTAINED BY CLEAN CATCH PROCEDURE / Unknown 01/31/2016 7:09 AM CDT 01/31/2016 7:12 AM CDT Sal Cummings Jr., MD LAB - MICROBIOL OGY ORDERABLES [facility] [address] [place] [address] [phone] * (ABNORMAL) URINALYSIS MICROSCOPIC ONLY W/REFLEX CULTURE (01/31/2016 7:09 AM CDT) Bacteria UA 4+(A) None Seen 01/31/2016 8:47 AM CDT [facility] Epithelial Cell UA 10-20(A) 0-2, 2-5 # /hpf 01/31/2016 8:47 AM CDT [facility] Calcium Oxalate Crystals 2+(A) None Seen 01/31/2016 8:47 AM T [facility] Urine URINE SPECIMEN OBTAINED BY CLEAN CATCH PROCEDURE / Unknown 01/31/2016 7:09 AM CDT 01/31/2016 7:12 AM CDT Sal Cummings Jr., MD LAB - URINALYSI S ORDERABLES [facility] [address] [place] [address] * (ABNORMAL) DIFFERENTIAL MANUAL (01/31/2016 7:09 AM CDT) Pathologist [facility] WBC Auto 16.6 x10E9/L 01/31/2016 10:57 AM [facility] WBC Corrected 4.4 - 10.7 x10E9/L 01/31/2016 10:57 AM [facility] nRBC /100 WBC 01/31/2016 10:57 AM [facility] Neutrophil % Manual 81(H) 44 - 73 % 01/31/2016 10:57 AM [facility] Lymphocytes % Manual 11(L) 20 - 43 % 01/31/2016 10:57 AM [facility] Monocytes % Manual 4(L) 5 - 13 % 01/31/2016 10:57 AM [facility] Band % Manual 2 0 - 11 % 01/31/2016 10:57 AM [facility] [place] Manual 2(H) <=0 % 01/31/2016 10:57 AM [facility] Cells Counted 100 # cells 01/31/2016 10:57 AM [facility] RBC Morphology Normal 01/31/2016 10:57 AM [facility] WBC Morph Normal 01/31/2016 10:57 AM [facility] Platelet Estimation Normal 01/31/2016 10:57 AM [facility] Blood BLOOD SPECIMEN / Unknown 01/31/2016 7:09 AM CDT 01/31/2016 7:22 AM CDT Sal Cummings Jr., MD LAB - HEMATOLOG Y ORDERABLES [facility] [address] [place] [address] * (ABNORMAL) URINALYSIS ROUTINE W/REFLEX TO CULTURE (01/31/2016 7:09 AM CDT) Color UA Dark Yellow Straw, Yellow, Dark Yellow 01/31/2016 7:41 AM [facility] Clarity UA Turbid 01/31/2016 7:41 AM [facility] Specific [place] UA >1.030(H) 1.005 - 1.030 01/31/2016 7:41 AM [facility] pH UA 6.0 5.0 - 8.0 pH 01/31/2016 7:41 AM [facility] Protein UA 2+(A) Negative 01/31/2016 7:41 AM [facility] Blood UA Negative Negative 01/31/2016 7:41 AM [facility] Leukocyte UA 2+(A) Negative 01/31/2016 7:41 AM [facility] Nitrite UA Negative Negative 01/31/2016 7:41 AM [facility] Glucose UA Negative Negative 01/31/2016 7:41 AM [facility] Ketone UA Trace(A) Negative 01/31/2016 7:41 AM [facility] Bilirubin UA Negative Negative 01/31/2016 7:41 AM [facility] Urobilinogen UA 1.0 0.1 - 1.0 EU/dL 01/31/2016 7:41 AM [facility] WBC UA Auto >100(A) 0-2, 2-5 # /hpf 01/31/2016 7:41 AM [facility] RBC UA Auto 2-5 0-2, 2-5 # /hpf 01/31/2016 7:41 AM [facility] Epithelial Cell UA Auto 10-20(A) 0-2, 2-5 # /hpf 01/31/2016 7:41 AM [facility] Bacteria UA Auto Reflex to manual(A) None seen 01/31/2016 7:41 AM [facility] Reflex Status Culture to follow 01/31/2016 7:41 AM [facility] Urine URINE SPECIMEN OBTAINED BY CLEAN CATCH PROCEDURE / Unknown 01/31/2016 7:09 AM CDT 01/31/2016 7:12 AM CDT Sal Cummings Jr., MD LAB - URINALYSI S ORDERABLES [facility] [address] [place] [address] * (ABNORMAL) COMPREHENSIVE METABOLIC PANEL (01/31/2016 7:09 AM CDT) Glucose 111(H) 74 - 106 mg/dL 01/31/2016 7:47 AM [facility] Sodium 137 136 - 145 mmol/L 01/31/2016 7:47 AM [facility] Potassium 4.1 3.5 - 5.1 mmol/L 01/31/2016 7:47 AM [facility] Chloride 105 98 - 107 mmol/L 01/31/2016 7:47 AM [facility] CO2 22 22 - 31 mmol/L 01/31/2016 7:47 AM [facility] Calcium 8.9 8.5 - 10.1 mg/dL 01/31/2016 7:47 AM [facility] Anion Gap 10 5 - 20 mmol/L 01/31/2016 7:47 AM [facility] BUN 13 7 - 21 mg/dL 01/31/2016 7:47 AM [facility] Creatinine 0.60 0.50 - 1.30 mg/dL 01/31/2016 7:47 AM [facility] Alkaline Phosphatase 118 38 - 126 U/L 01/31/2016 7:47 AM [facility] ALT 27 13 - 61 U/L 01/31/2016 7:47 AM [facility] Comment:See reference range update AST 15 5 - 40 U/L 01/31/2016 7:47 AM [facility] Protein Total 7.2 6.4 - 8.2 gm/dL 01/31/2016 7:47 AM CDT [facility] Albumin 2.8(L) 3.4 - 5.0 gm/dL 01/31/2016 7:47 AM CDT [facility] Bilirubin Total 0.1(L) 0.2 - 1.0 mg/dL 01/31/2016 7:47 AM CDT [facility] eGFR by MDRD >60 >60 mL/min/1.7 3m2 01/31/2016 7:47 AM CDT [facility] eGFR by MDRD >60 >60 mL/min/1.7 3m2 01/31/2016 7:47 AM CDT [facility] Blood BLOOD SPECIMEN / Unknown 01/31/2016 7:09 AM CDT 01/31/2016 7:22 AM CDT Sal Cummings Jr., MD LAB - CHEMISTRY ORDERABLES [facility] [place] [address] * (ABNORMAL) CBC W AUTO DIFFERENTIAL (01/31/2016 7:09 AM CDT) WBC 16.6(H) 4.4 - 10.7 x10E9/L 01/31/2016 7:28 AM CDT [facility] WBC Corrected x10E9/L 01/31/2016 7:28 AM CDT [facility] RBC 4.79 3.80 - 5.20 x10E12/L 01/31/2016 7:28 AM CDT [facility] Hemoglobin 12.8 12.0 - 15.6 gm/dL 01/31/2016 7:28 AM CDT [facility] Hematocrit 37.6 35.9 - 45.5 % 01/31/2016 7:28 AM CDT [facility] MCV 78.5(L) 80.7 - 98.3 fl 01/31/2016 7:28 AM CDT [facility] MCH 26.7 26.7 - 34.0 pg 01/31/2016 7:28 AM CDT [facility] MCHC 34.0 30.8 - 35.9 gm/dL 01/31/2016 7:28 AM CDT [facility] Platelet Count 323 153 - 416 x10E9/L 01/31/2016 7:28 AM CDT [facility] RDW-CV 14.6 12.1 - 14.9 % 01/31/2016 7:28 AM CDT [facility] MPV 9.0(L) 9.4 - 12.9 fl 01/31/2016 7:28 AM CDT [facility] nRBC Auto 0 /100 WBC 01/31/2016 7:28 AM CDT [facility] Hematology Reflex Status Manual Diff to follow 01/31/2016 7:28 AM CDT [facility] Blood BLOOD SPECIMEN / Unknown 01/31/2016 7:09 AM CDT 01/31/2016 7:22 AM CDT Sal Cummings Jr., MD LAB - HEMATOLOG Y ORDERABLES [facility] [address] [place] [address] documented in this encounter Visit [...]
--- OUTSIDE RECORDS SUMMARY | 2024-05-30 20:16 | XMS_ITS | Clinical Summary ---
Author Organization [facility] Address [address] [place] [address]. [place] [address] Care Team Providers Care Digital Cartographic Technician Name Role Phone None, Provider MD Primary [...] Documents on File Type Date Recorded Patient Podiatrist Assistant Expl anation Advance Directives and Living Will 04/12/2016 12:00 AM [employer] DIRECTIVES Care Teams Digital Cartographic Technician Relationship Specialty Start Date End Date None, Provider, PCP - General 02/13/19
--- OUTSIDE RECORDS SUMMARY | 2024-05-30 20:16 | XMS_ITS | Referral Summary ---
Author Organization [facility] Address [address] [facility] [place] [address] Care Team Providers Care Physician Intensivist Name Role Phone Unavailable Primary Care Provider Unavailabl e Source Comments [facility],non-owned Affiliates and Associated Physician Practices is amultiple site organization consisting of ambulatory clinics and hospital sitesin [place], [place], [place] and [place]. This disclosure is being madepursuant to the Care Everywhere program and may not contain all information available regarding this patient. Last updated 18.[facility] [employer] Allergies Active Allergy Reactions Criticality Noted Date [...]
--- OUTSIDE RECORDS SUMMARY | 2024-05-30 20:16 | XMS_ITS | Encounter Summary ---
Author Organization [facility] Address [address] [place] [address]. [place], [place] [id number] [place] [address] Care Team Providers Care Packing House Laborer Name Role Phone None, Provider Primary Care Provider Unavaila ble Encounter Details Date Type Department Care Team (Late st Contact Info) Description 02/03/2016 Abstract [facility] [address] [place] [address] Yulisa Mustafa CN [address] [place] [address] Social History Tobacco Use Types Packs/Day Years [...] on filedocumented in this encounter Care Teams Packing House Laborer Relationship Specialty Start Date End Date None, Provider, PCP - General 02/13/19 documented as of this encounter
--- OUTSIDE RECORDS SUMMARY | 2024-05-30 20:16 | XMS_ITS | Encounter Summary ---
Author Organization [facility] Address [address] [place] [address]. [place] [address] Care Team Providers Care Bag Washer Name Role Phone None, Provider Primary Care Provider Arturoa ble Encounter Details Date Type Department Care Team (Latest Contact Info) Description 11/09/2015 Abstract [facility] Medical Group , Generic Conversion, [...] on filedocumented in this encounter Care Teams Bag Washer Relationship Specialty Start Date End Date None, Provider, PCP - General 02/13/19 documented as of this encounter
--- OUTSIDE RECORDS SUMMARY | 2024-05-30 20:16 | XMS_ITS | Encounter Summary ---
Author Organization [facility] Address [address] [place] [address]. [place], [place] [address] [place] [address] Care Team Providers Care Plastic Installer Name Role Phone None, Provider Primary Care Provider Unavaila ble Encounter Details Date Type Department Care Team (Late st Contact Info) Description 03/27/2016 Abstract [facility] [address] [facility] [place], [place] [id number] Mary Lou Perera, MAE [address] [place] [address] Social History Tobacco Use Types [...] on filedocumented in this encounter Care Teams Plastic Installer Relationship Specialty Start Date End Date None, Provider, PCP - General 02/13/19 documented as of this encounter
--- OUTSIDE RECORDS SUMMARY | 2024-05-30 20:16 | XMS_ITS | Encounter Summary ---
Author Organization [facility] Address [address] [place] [address]. [place] [address] Care Team Providers Care Income Tax Consultant Name Role Phone None, Provider Primary Care Provider Arturoa ble Encounter Details Date Type Department Care Team (Latest Contact Info) Description 10/19/2015 Abstract [facility] Medical Group , Generic Conversion, Social History [...] on filedocumented in this encounter Care Teams Income Tax Consultant Relationship Specialty Start Date End Date None, Provider, PCP - General 02/13/19 documented as of this encounter
--- OUTSIDE RECORDS SUMMARY | 2024-05-30 20:16 | XMS_ITS | Clinical Summary ---
Author Organization [facility] Address [address] [facility] [place] [address] Care Team Providers Care Manager Food Beverage Name Role Phone Unavailable Primary Care Provider Unavailabl e Source Comments [facility],non-owned Affiliates and Associated Physician Practices is amultiple site organization consisting of ambulatory clinics and hospital sitesin [place], [place], [place]. This disclosure is being madepursuant to the Care Everywhere program and may not contain all information available regarding this patient. Last updated 18.[facility] Allergies Active Allergy Reactions Criticality Noted Date [...]
--- OUTSIDE RECORDS SUMMARY | 2024-05-30 20:16 | XMS_ITS | Encounter Summary ---
Author Organization [facility] Address [address] [place] [address]. [place] [address] Care Team Providers Care Top Distribution Executive Name Role Phone None, Provider Primary Care Provider Unavaila ble Encounter Details Date Type Department Care Team (Latest Contact Info) Description 09/14/2015 Abstract [facility] Group , Generic Conversion, [...] on filedocumented in this encounter Care Teams Top Distribution Executive Relationship Specialty Start Date End Date None, Provider, PCP - General 02/13/19 documented as of this encounter
--- OUTSIDE RECORDS SUMMARY | 2024-05-30 20:16 | XMS_ITS | Encounter Summary ---
Author Organization [facility] Address [address] [place] [address]. [place], [place] [address] [place] [address] Care Team Providers Care Pulp Grinder And Blender Name Role Phone None, Provider Primary Care Provider Unavaila ble Encounter Details Date Type Department Care Team (Late st Contact Info) Description 03/27/2016 Abstract [facility] CONVERSION [address] [place] [address] Mary Lou Perera, STACY [address] [place] [address] Social History Tobacco Use Types [...] on filedocumented in this encounter Care Teams Pulp Grinder And Blender Relationship Specialty Start Date End Date None, Provider, PCP - General 02/13/19 documented as of this encounter
--- OUTSIDE RECORDS SUMMARY | 2024-05-30 20:16 | XMS_ITS | Encounter Summary ---
Author Organization [facility] Address [address] [place] [address]. [place] [address] Care Team Providers Care Welder 2Nd Shift Name Role Phone None, Provider Primary Care Provider Ilana ble Encounter Details Date Type Department Care Team (Latest Contact Info) Description 08/20/2015 Abstract [facility] Medical Group , Generic Conversion, Social History [...] on filedocumented in this encounter Care Teams Welder 2Nd Shift Relationship Specialty Start Date End Date None, Provider, PCP - General 02/13/19 documented as of this encounter
--- OUTSIDE RECORDS SUMMARY | 2024-05-30 20:16 | XMS_ITS | Encounter Summary ---
Author Organization [facility] Address [address] [place] [address]. [place], [place] [address] [place] [address] Care Team Providers Care Technical Research Scientist Name Role Phone None, Provider Primary Care Provider Unavaila ble Encounter Details Date Type Department Care Team (Late st Contact Info) Description 04/12/2016 Abstract [facility] [address] [place] [address] Alexi Shepherd, DO [address] [place] [address] [address] Social History Tobacco Use Types Packs/Day Years [...] on filedocumented in this encounter Care Teams Technical Research Scientist Relationship Specialty Start Date End Date None, Provider, PCP - General 02/13/19 documented as of this encounter
--- OUTSIDE RECORDS SUMMARY | 2024-05-30 20:16 | XMS_ITS | Encounter Summary ---
Author Organization [facility] Address [address] [place] [address]. [place] [address] Care Team Providers Care Licensed Retail Supervisor Name Role Phone None, Provider MD Primary Care Provider Unavaila ble Reason for Visit * Reason Comments Arm Pain Chest Pain Encounter Details Date Type Department Care Team (Late st Contact Info) Description 02/13/2019 7:04 AM CDT - 02/13/2019 1:27 PM CDT Emergency [facility] [place] [address] Antonio Smith MD Arm Pain; Chest Pain [...] Not Caused by the Heart Discharge Instructions (Jamaican) documented in this encounter Medications at Time [...] of 02/13/19 ECG [address] Test Date: 2019-02-13 Pat Name: RODERICK BADILLO Department: Room: Gender: Female Pack Operator: HOME : 1995 Requested By: ROBBI ROMERO Order Number: [id number] Reading MD: Measurements Intervals [place] Rate: 94 P: 31 NC: 160 QRS: 38 QRSD: 86 T: 44 QT: 332 QTc: 417 Interpretive Statements SINUS RHYTHM No previous ECG available for comparison ECG [address] [facility] Test Date: 2019-02-13 Pat Name: RODERICK BADILLO Department: Room: [facility] Gender: F Pack Operator: anb : 1995 Requested By: ROBBI ROMERO Order Number: [id number] Reading MD: Measurements Intervals [place] Rate: 84 P: 22 NC: 160 QRS: 25 QRSD: 85 T: 43 [...] XR CHEST PORTABLE Final Result by User, [id number] (02/13 1696) Examination: Chest radiograph Exam time: 02/13/2019 7:48 [...] <0.0150 <0.045 ng/mL. 02/13/2019 11:56 AM CDT [facility] Comment: HIGH DOSES OF BIOTIN MAY INTERFERE WITH THIS TEST RESULT. CORRELATION TO CLINICAL HISTORY AND PRESENTATION RECOMMENDED. 02/13/2019 10:0 1 AM CDT Robbi Romero MD LABORATORY Final Result [facility] [address] [place] [address], * ECG 12 lead (02/13/2019 9:55 AM CDT) 02/13/2019 9:55 AM CDT Narrative [facility] YANNICK ([facility]) RAD - 02/14/2019 9:39 AM CDT ?[place] [place] ? [address] [facility] ? Test Date: ?2019-02-13 Pat Name: ? RODERICKCHICO BADILLO ? Department: ? Room: ? INGRID Gender: ?Pack Operator: ?? anb : ?1995 ? Requested By: ROBBI ARMANDO Order Number: [id number] ? Reading MD: ?? Pete Fitzpatrick ? Measurements Intervals ?[place] ? Rate: ? 84 ? P: ?22 NC: ? 160 ?QRS: ?25 QRSD: ? 85 ? T: ?43 QT: ? 335 ? QTc: ?397 ? Interpretive Statements SINUS RHYTHM Compared to ECG 02/13/2019 07:08:23 No significant changes Procedure Note Pete Fitzpatrick MD - 02/14/2019 [facility] [address] Test Date: 2019-02-13 Pat Name: RODERICK BADILLO Department: Room: INGRID Gender: Pack Operator: anb : 1995 Requested By: ROBBI ROMERO Order Number: [id number] Reading MD: Pete Fiztpatrick Measurements Intervals [place] Rate: 84 P: 22 NC: 160 QRS: 25 QRSD: 85 T: 43 QT: 335 QTc: 397 Interpretive Statements SINUS RHYTHM Compared to ECG 02/13/2019 07:08:23 No significant changes us Robbi Romero MD ECG ORDERABLES Final Result [facility] * XR CHEST PORTABLE (02/13/2019 7:48 [...] Internal Control performed as Expected? yes Comment:lot: [id number] 0 12/19/2019 Antonio Smith MD POINT OF CARE TEST ORDERABLES Final Result * D-DIMER, QUANTITATIVE (02/13/2019 7:17 AM CDT) Pathologist [facility] D-DIMER 151 0 - 230 D DU ng/mL 02/13/2019 7:57 AM CDT [facility] Comment: TESTING PERFORMED ON [employer] ANALYZER. NOTE: RESULTS OF THIS [...] CDT Antonio Smith MD LABORATORY Final Result [facility] [address] [place] [address], * TROPONIN, QUANT (02/13/2019 7:17 AM CDT) Pathologist [facility] TROPONIN I <0.015 <0.045 ng/mL. 02/13/2019 7:59 AM CDT [facility] Comment: HIGH DOSES OF BIOTIN MAY INTERFERE WITH THIS TEST RESULT. CORRELATION TO CLINICAL HISTORY AND PRESENTATION RECOMMENDED. 02/13/2019 7:17 AM CDT us Robbi Romero MD LABORATORY Final Result [facility] [address] [place] [id number], * (ABNORMAL) COMPREHENSIVE METABOLIC PANEL (02/13/2019 7:17 AM CDT) GLUCOSE 100(H) 70 - 99 MG/DL 02/13/2019 7:59 AM CDT [facility] BUN 14 7 - 18 MG/DL 02/13/2019 7:59 AM CDT [facility] CREATININE S/P/B 0.94 0.55 - 1.02 MG/DL 02/13/2019 7:59 AM CDT [facility] SODIUM S/P/B 138 136 - 145 MMOL/L 02/13/2019 7:59 AM CDT [facility] POTASSIUM S/P/B 4.5 3.5 - 5.1 MMOL/L 02/13/2019 7:59 AM CDT [facility] CHLORIDE S/P/B 105 100 - 108 MMOL/L 02/13/2019 7:59 AM CDT [facility] CO2 27.4 21 - 32 MMOL/L 02/13/2019 7:59 AM CDT [facility] CALCIUM S/P/B 10.0 8.5 - 10.1 MG/DL 02/13/2019 7:59 AM CDT [facility] BILIRUBIN TOTAL S/P/B 0.2 0.2 - 1.2 MG/DL 02/13/2019 7:59 AM CDT [facility] TOTAL PROTEIN S/P/B 8.1 6.4 - 8.2 G/DL 02/13/2019 7:59 AM T [facility] ALBUMIN S/P/B 3.9 3.4 - 5.0 G/DL 02/13/2019 7:59 AM CDT [facility] AST 28 15 - 37 U/L 02/13/2019 7:59 AM CDT [facility] ALT 53 14 - 55 U/L 02/13/2019 7:59 AM CDT [facility] ALKALINE PHOSPHATASE S/P/B 86 50 - 136 U/L 02/13/2019 7:59 AM T [facility] ANION GAP 5.6 5 - 15 MMOL/L 02/13/2019 7:59 AM T [facility] BUN CREATININE RATIO 15.0 6 - 02/13/2019 7:59 AM T [facility] A/G RATIO 0.9(L) 1.0 - 2.0 RATIO 02/13/2019 7:59 AM T [facility] EGFR NON-AFR. AMER. 84(L) >90 ML/MIN/1.7 3 M2 02/13/2019 7:59 AM T [facility] EGFR AFR. AMER. >90 >90 ML/MIN/1.7 3 M2 02/13/2019 7:59 AM T [facility] Comment: NOTE: eGFR is not calculated for patients <18 years of age. This is an estimated GFR (CKD EPI) and should not be used for calculating drug doses. 02/13/2019 7:17 AM CDT Robbi Romero MD LABORATORY Final Result [facility] [address] [place] [address], [place] [phone] * (ABNORMAL) CBC W/DIFF AUTOMATED (02/13/2019 7:17 AM CDT) [facility] WBC 11.1(H) 4.5 - 11.0 x10'3/uL 02/13/2019 7:36 AM CDT [facility] RBC 5.56(H) 4.20 - 5.40 x10'6/uL 02/13/2019 7:36 AM CDT [facility] HGB 14.0 12.0 - 16.0 G/DL 02/13/2019 7:36 AM CDT [facility] HCT 44.7 38.0 - 48.0 % 02/13/2019 7:36 AM CDT [facility] MCV 80.4 80.0 - 94.0 FL 02/13/2019 7:36 AM CDT [facility] MCH 25.2(L) 27.0 - 31.0 PG 02/13/2019 7:36 AM CDT [facility] MCHC 31.3(L) 32.0 - 36.0 G/DL 02/13/2019 7:36 AM CDT [facility] RDW 14.6(H) 11.5 - 14.5 % 02/13/2019 7:36 AM CDT [facility] PLT 389 130 - 400 x10'3/uL 02/13/2019 7:36 AM CDT [facility] MPV 9.1(L) 9.3 - 12.2 FL 02/13/2019 7:36 AM CDT [facility] DIFFERENTIAL TYPE AUTOMATED DIFFERENTIAL 02/13/2019 7:36 AM CDT [facility] NEUTROPHILS % 62.0 % 02/13/2019 7:36 AM CDT [facility] LYMPHOCYTES % 26.4 % 02/13/2019 7:36 AM CDT [facility] MONOCYTES % 5.0 % 02/13/2019 7:36 AM CDT [facility] EOSINOPHILS 1.7 % 02/13/2019 7:36 AM CDT [facility] BASOPHILS 0.6 % 02/13/2019 7:36 AM CDT [facility] IMMATURE GRANS % 4.3 % 02/14/20 7:36 AM CDT [facility] ABS. NEUTROPHILS TOTAL 6.88 1.80 - 7.70 x10'3/uL 02/13/2019 7:36 AM CDT [facility] ABS. LYMPHOCYTES 2.94 1.00 - 4.80 x10'3/uL 02/13/2019 7:36 AM CDT [facility] ABS. MONOCYTES 0.56 0.24 - 0.86 x10'3/uL 02/13/2019 7:36 AM CDT [facility] ABS. EOSINOPHILS 0.19 0.04 - 0.36 x10'3/uL 02/13/2019 7:36 AM CDT [facility] ABS. BASOPHILS 0.07 0.01 - 0.08 x10'3/uL 02/13/2019 7:36 AM CDT [facility] ABS. IMMATURE GRANULOCYTES 0.48 0.00 - 0.49 x10'3/uL 02/13/2019 7:36 AM CDT [facility] 02/13/2019 7:17 AM CDT us Robbi Romero MD LABORATORY Final Result [facility] [address] [place] [address], [place] [phone] * ECG 12 lead (02/13/2019 7:08 AM CDT) 02/13/2019 7:08 AM CDT Narrative [facility] - 02/14/2019 8:56 AM CDT ?[place] [place] ? [address] [place] ? Test Date: ?2019-02-13 Pat Name: ? RODERICK MEADDENIA ? Department: ? Room: ? INGRID Gender: ? F ?Pack Operator: ?? ALR : ?1995 ? Requested By: ROBBI Oviedo Number: [id number] ? Reading MD: ?? Pete Fitzpatrick ? Measurements Intervals ?[place] ? Rate: ? 94 ? P: ?31 NC: ? 160 ?QRS: ?38 QRSD: ? 86 ? T: ?44 QT: ? 332 ? QTc: ?417 ? Interpretive Statements SINUS RHYTHM Artifact noted No previous ECG available for comparison No ischemic changes Silverio Jj CRITICAL ALERT ISSUED ON 02-13-2019 7:15:19 Procedure Note Pete Fitzpatrick MD - 02/14/2019 [facility] Test Date: 2019-02-13 Pat Name: RODERICK BADILLO Department: Room: [facility] Gender: F Pack Operator: HOME : 1995 Requested By: ROBBI ROMERO Order Number: [id number] Hafsa PAREDES: Pete Fitzpatrick Measurements Intervals [place] Rate: 94 P: 31 NC: 160 QRS: 38 QRSD: 86 T: 44 QT: 332 QTc: 417 Interpretive Statements SINUS RHYTHM Artifact noted No previous ECG available for comparison No ischemic changes Silverio Jj CRITICAL ALERT ISSUED ON 02-13-2019 7:15:19 us Robbi Romero MD ECG ORDERABLES Final Result [facility] documented in this encounter Visit [...] RN) documented in this encounter Care Teams Licensed Retail Supervisor Relationship Specialty Start Date End Date None, Provider, PCP - General 02/13/19 documented as of this encounter
--- OUTSIDE RECORDS SUMMARY | 2024-05-30 20:16 | XMS_ITS | Encounter Summary ---
Author Organization [facility] Address [address] [place] [address]. [place] [address] Care Team Providers Care Optical Manufacturing Technician Name Role Phone None, Provider Primary Care Provider Arturoa ble Encounter Details Date Type Department Care Team (Latest Contact Info) Description 12/16/2015 Abstract [facility] , Generic Conversion, [...] on filedocumented in this encounter Care Teams Optical Manufacturing Technician Relationship Specialty Start Date End Date None, Provider, PCP - General 02/13/19 documented as of this encounter
--- OUTSIDE RECORDS SUMMARY | 2024-05-30 20:16 | XMS_ITS | Patient Health Summary ---
Author Organization [facility] Address [address] [place] [address] Care Team Providers Care Shop Hand Name Role Phone Unavailable Primary Care Provider Unavailabl e Note from [facility],non-owned Affiliates and Associated Physician Practices is amultiple site organization consisting of ambulatory clinics and hospital sitesin [place], [place], [place] and [place]. This disclosure is being madepursuant to the Care Everywhere program and may not contain all information available regarding this patient. Last updated 18.[facility] Allergies * Food(almonds) Active Problems No known [...] - 10.7 x10E9/L 02/01/2016 7:42 AM CDT [facility] WBC Corrected x10E9/L 02/01/2016 7:42 AM CDT [facility] RBC 3.94 3.80 - 5.20 x10E12/L 02/01/2016 7:42 AM CDT [facility] Hemoglobin 10.7(L) 12.0 - 15.6 gm/dL 02/01/2016 7:42 AM CDT [facility] Hematocrit 31.3(L) 35.9 - 45.5 % 02/01/2016 7:42 AM CDT [facility] MCV 79.4(L) 80.7 - 98.3 fl 02/01/2016 7:42 AM CDT [facility] MCH 27.2 26.7 - 34.0 pg 02/01/2016 7:42 AM CDT [facility] MCHC 34.2 30.8 - 35.9 gm/dL 02/01/2016 7:42 AM CDT [facility] Platelet Count 286 153 - 416 x10E9/L 02/01/2016 7:42 AM CDT [facility] RDW-CV 14.7 12.1 - 14.9 % 02/01/2016 7:42 AM CDT [facility] MPV 9.4 9.4 - 12.9 fl 02/01/2016 7:42 AM [facility] Neutrophils % 70.8 44.0 - 73.0 % 02/01/2016 7:42 AM [facility] Lymphocytes % 16.8(L) 20.0 - 43.0 % 02/01/2016 7:42 AM [facility] Monocytes % 7.2 5.0 - 13.0 % 02/01/2016 7:42 AM [facility] Eosinophils % 0.4 0.0 - 6.0 % 02/01/2016 7:42 AM [facility] Basophils % 0.3 0.0 - 2.0 % 02/01/2016 7:42 AM [facility] Immature Granulocytes 4.5(H) 0 - 1 % 02/01/2016 7:42 AM [facility] Neutrophil Absolute 9.06(H) 2.01 - 7.14 x10E9/L 02/01/2016 7:42 AM [facility] Lymphocytes Absolute 2.15 1.07 - 3.94 x10E9/L 02/01/2016 7:42 AM [facility] Monocytes Absolute 0.92 0.26 - 1.07 x10E9/L 02/01/2016 7:42 AM [facility] Eosinophils Absolute 0.05 0 - 0.47 x10E9/L 02/01/2016 7:42 AM [facility] Basophils Absolute 0.04 0 - 0.08 x10E9/L 02/01/2016 7:42 AM [facility] Immature Granulocytes Absolute 0.57(H) 0.00 - 0.06 x10E9/L 02/01/2016 7:42 AM [facility] nRBC Auto 0 /100 WBC 02/01/2016 7:42 AM [facility] Blood BLOOD SPECIMEN / Unknown Lab Venipuncture / Unknown 02/01/2016 6:57 AM T 02/01/2016 7:38 AM T Lisa Buckley MD LAB - HEMATOLOGY ORD ERABLES [facility] [address] [place] [address] * (ABNORMAL) URINALYSIS MICROSCOPIC ONLY W/REFLEX CULTURE (01/31/2016 7:09 AM CDT) Bacteria UA 4+(A) None Seen 01/31/2016 8:47 AM CDT [facility] Epithelial Cell UA 10-20(A) 0-2, 2-5 # /hpf 01/31/2016 8:47 AM CDT [facility] Calcium Oxalate Crystals 2+(A) None Seen 01/31/2016 8:47 AM T [facility] Urine URINE SPECIMEN OBTAINED BY CLEAN CATCH PROCEDURE / Unknown 01/31/2016 7:09 AM CDT 01/31/2016 7:12 AM CDT Sal Cummings Jr., MD LAB - URINALYSI S ORDERABLES [facility] [address] [place] [address] * (ABNORMAL) URINALYSIS ROUTINE W/REFLEX TO CULTURE (01/31/2016 7:09 AM CDT) Color UA Dark Yellow Straw, Yellow, Dark Yellow 01/31/2016 7:41 AM T [facility] Clarity UA Turbid 01/31/2016 7:41 AM [facility] Specific [place] UA >1.030(H) 1.005 - 1.030 01/31/2016 7:41 AM [facility] pH UA 6.0 5.0 - 8.0 pH 01/31/2016 7:41 AM [facility] Protein UA 2+(A) Negative 01/31/2016 7:41 AM T [facility] Blood UA Negative Negative 01/31/2016 7:41 AM [facility] Leukocyte UA 2+(A) Negative 01/31/2016 7:41 AM T [facility] Nitrite UA Negative Negative 01/31/2016 7:41 AM [facility] Glucose UA Negative Negative 01/31/2016 7:41 AM [facility] Ketone UA Trace(A) Negative 01/31/2016 7:41 AM [facility] Bilirubin UA Negative Negative 01/31/2016 7:41 AM T [facility] Urobilinogen UA 1.0 0.1 - 1.0 EU/dL 01/31/2016 7:41 AM CDT [facility] WBC UA Auto >100(A) 0-2, 2-5 # /hpf 01/31/2016 7:41 AM CDT [facility] RBC UA Auto 2-5 0-2, 2-5 # /hpf 01/31/2016 7:41 AM CDT [facility] Epithelial Cell UA Auto 10-20(A) 0-2, 2-5 # /hpf 01/31/2016 7:41 AM CDT [facility] Bacteria UA Auto Reflex to manual(A) None seen 01/31/2016 7:41 AM CDT [facility] Reflex Status Culture to follow 01/31/2016 7:41 AM T [facility] Urine URINE SPECIMEN OBTAINED BY CLEAN CATCH PROCEDURE / Unknown 01/31/2016 7:09 AM CDT 01/31/2016 7:12 AM CDT Sal Cummings Jr., MD LAB - URINALYSI S ORDERABLES [facility] [address] [place] [address] * CULTURE URINE (01/31/2016 7:09 AM CDT) Culture <10,000 CFU/mL urogenital matt JIE 02/01/2016 12:16 PM CDT [facility] Urine URINE SPECIMEN OBTAINED BY CLEAN CATCH PROCEDURE / Unknown 01/31/2016 7:09 AM CDT 01/31/2016 7:12 AM CDT Sal Cummings Jr., MD LAB - MICROBIOL OGY ORDERABLES [facility] [address] [place] [address], [facility] [phone] * (ABNORMAL) DIFFERENTIAL MANUAL (01/31/2016 7:09 AM CDT) WBC Auto 16.6 x10E9/L 01/31/2016 10:57 AM CDT [facility] WBC Corrected 4.4 - 10.7 x10E9/L 01/31/2016 10:57 AM CDT [facility] nRBC /100 WBC 01/31/2016 10:57 AM CDT [facility] Neutrophil % Manual 81(H) 44 - 73 % 01/31/2016 10:57 AM CDT [facility] Lymphocytes % Manual 11(L) 20 - 43 % 01/31/2016 10:57 AM CDT [facility] Monocytes % Manual 4(L) 5 - 13 % 01/31/2016 10:57 AM CDT [facility] Band % Manual 2 0 - 11 % 01/31/2016 10:57 AM CDT [facility] [place] Manual 2(H) <=0 % 01/31/2016 10:57 AM CDT [facility] Cells Counted 100 # cells 01/31/2016 10:57 AM [facility] RBC Morphology Normal 01/31/2016 10:57 AM [facility] WBC Morph Normal 01/31/2016 10:57 AM [facility] Platelet Estimation Normal 01/31/2016 10:57 AM [facility] Blood BLOOD SPECIMEN / Unknown 01/31/2016 7:09 AM CDT 01/31/2016 7:22 AM CDT Sal Cummings Jr., MD LAB - HEMATOLOG Y ORDERABLES [facility] [address] [place] [place] [address] * (ABNORMAL) COMPREHENSIVE METABOLIC PANEL (01/31/2016 7:09 AM CDT) [facility] Signature Glucose 111(H) 74 - 106 mg/dL 01/31/2016 7:47 AM CDT [facility] Sodium 137 136 - 145 mmol/L 01/31/2016 7:47 AM CDT [facility] Potassium 4.1 3.5 - 5.1 mmol/L 01/31/2016 7:47 AM CDT [facility] Chloride 105 98 - 107 mmol/L 01/31/2016 7:47 AM CDT [facility] CO2 22 22 - 31 mmol/L 01/31/2016 7:47 AM CDT [facility] Calcium 8.9 8.5 - 10.1 mg/dL 01/31/2016 7:47 AM CDT [facility] Anion Gap 10 5 - 20 mmol/L 01/31/2016 7:47 AM CDT [facility] BUN 13 7 - 21 mg/dL 01/31/2016 7:47 AM CDT [facility] Creatinine 0.60 0.50 - 1.30 mg/dL 01/31/2016 7:47 AM CDT [facility] Alkaline Phosphatase 118 38 - 126 U/L 01/31/2016 7:47 AM CDT [facility] ALT 27 13 - 61 U/L 01/31/2016 7:47 AM [facility] Comment:See reference range update AST 15 5 - 40 U/L 01/31/2016 7:47 AM T [facility] Protein Total 7.2 6.4 - 8.2 gm/dL 01/31/2016 7:47 AM CDT [facility] Albumin 2.8(L) 3.4 - 5.0 gm/dL 01/31/2016 7:47 AM [facility] Bilirubin Total 0.1(L) 0.2 - 1.0 mg/dL 01/31/2016 7:47 AM [facility] eGFR by MDRD >60 >60 mL/min/1.7 3m2 01/31/2016 7:47 AM [facility] eGFR by MDRD >60 >60 mL/min/1.7 3m2 01/31/2016 7:47 AM [facility] Blood BLOOD SPECIMEN / Unknown 01/31/2016 7:09 AM CDT 01/31/2016 7:22 AM CDT Sal Cummings Jr., MD LAB - CHEMISTRY ORDERABLES [facility] [address] [place] [address]
--- OUTSIDE RECORDS SUMMARY | 2024-05-30 20:19 | XMS_ITS | Clinical Summary ---
Author Organization [facility] Address [address] [place]: Felicitas [place] [address] Care Team Providers Care House Mother Name Role Phone Unavailable Primary Care Provider [...]
--- OUTSIDE RECORDS SUMMARY | 2024-05-30 20:19 | XMS_ITS | Continuity of Care Document ---
Author Organization [facility] Address [address] [place] [address] Phone Care Team Providers Care Developer Programmer Analyst Name Role Phone Silver Branch DO Unavailable [...] WBC 14:20:30 9.90 K/uL 3.80-10.80 Final Performed by:[facility] (35) RBC 14:20:30 5.12 M/uL 3.80-5.10 H Final Performed by:[facility] ([facility]) HGB 14:20:30 12.7 g/dL 11.7-15.5 Final Performed by:[facility] ([facility]) HCT 14:20:30 40.3 % 35.0-45.0 Final Performed by:[facility] ([facility]) MCV 14:20:30 78.7 fL 80.0-100.0 L Final Performed by:[facility] ([facility]) MCH 14:20:30 24.8 pg 27.0-33.0 L Final Performed by:[facility] ([facility]) MCHC Dec-12-20 17 14:20:30 31.5 [...] % 16.0-46.0 Final Performed by:[facility] ([facility]) Lyman # 17 14:20:30 0.58 K/uL 0.20-1.10 Final Performed by:[facility] ([facility]) Lyman % 17 14:20:30 5.9 % 0.0-12.0 Final [...] Diagnoses Date Provider Providers Copied on Encounter [facility], [address], [place], [place], [id number], [place] tel:[phone] [facility] Body mass index (BMI) 40.0-44.9, adultEdema, unspecified typeDiabetes mellitus screeningChronic fatigueBinge eating disorderHistory of depression [address], [address], [place], [place], [id number] , [place]. tel: [phone] Referring Provider: Silver Barnch, [address], [place], [address] . tel:[phone] Family History Family Member Type Diagnosis Age At Onset Problem (finding) Family history of alzhe juanito's disease Problem (finding) Family history of Menta l illness Problem (finding) Family history of strok e Problem (finding) Family history of hyper tension Brother Problem (finding) Eczema Mother Problem (finding) depression Brother Problem (finding) depression Mother Problem (finding) raised blood lipids Brother Problem (finding) hypertension Problem (finding) Family history of osteo arthritis Mother Problem (finding) osteoarthritis Mother Problem (finding) osteoporosis Problem (finding) Family history of Leuke lalo Problem (finding) Family history of alcoh olism Problem (finding) Family history of depre ssion Brother Problem (finding) alcoholism Mother Problem (finding) Mental illness Problem (finding) Family history of Obesi ty Problem (finding) Family history of malignant neoplasm of lung Problem (finding) Family history of osteo porosis Brother Problem (finding) raised blood lipids Brother Problem (finding) Allergies Father Problem (finding) hypertension Problem (finding) Family history of Blood disorder Problem (finding) Family history of Diabe pretty mellitus Immunizations Vaccine Date Status Comments Fluzone Quad , preservative free, split virus, 0.5mL dosage administered Note: pt recall ; So urce: Source Unspecified Tdap administered Note: pt recall ; Source: Source Unspecified Payers Payer name Insurance type Covered green party ID Authoriza titanisha(s) [employer] INACTIVE OUT OF STATE BL [id number] Social History Type Description Quantity Date Captured [...]
--- OUTSIDE RECORDS SUMMARY | 2024-05-30 20:19 | XMS_ITS | Encounter Summary ---
Author Organization [facility] Address [address] [place] [address] Care Team Providers Care Contractor Buyer Name Role Phone Unavailable Primary Care Provider [...]
--- OUTSIDE RECORDS SUMMARY | 2024-05-30 20:19 | XMS_ITS | Encounter Summary ---
Author Organization [facility] Healthcare Address [address] [place] [address] Care Team Providers Care Coremaker Name Role Phone No, Physician Primary Care Provider [phone] Encounter Details Date Type Department Care Team (Latest Contact Info) Description 11/19/2022 12:53 PM CDT - 11/19/2022 11:59 PM CDT Hospital Encounter [facility] [address] [place] [address] Cystitis with hematuria Discharge Disposition: Discharge to [...] (.) MATT AMOS Comment:Testing performed by : [facility], [address] [facility] [place]., [address] Organism ESCHERICHIA COLI MATT Organism PLUS GROWTH OF CLINICALLY INSIGNIFICANT MATT. MATT Urine, clean voided 11/19/2022 12:53 PM CDT 11/19/2022 5:50 PM CDT Narrative MATT - 11/21/2022 11:23 AM CDT Testing performed by [facility] Microbiology Laboratory ([phone]) Organism Antibiotic Method Susceptibility Escherichia coli Ampicillin [...] - GENER AL ORDERABLES Final Result MATT [address] [address] Department [place] [address] documented in this encounter Visit Diagnoses Diagnosis Cystitis with hematuria Unspecified cystitis documented in this encounter Care Teams Coremaker Relationship Specialty Start Date End Date No, Physician PCP - General 11/19/22 documented as of this encounter
--- OUTSIDE RECORDS SUMMARY | 2024-05-30 20:19 | XMS_ITS | Clinical Summary ---
Author Organization [address] Address [address] [place] [address] Care Team Providers Care Sharemilker Name Role Phone No, Physician Primary Care Provider Allergies Active Allergy Reactions Criticality Noted Date [...] patient's age to complete this topic Insurance [facility] CHOICE PLUS Care Teams Sharemilker Relationship Specialty Start Date End Date No, Physician PCP - General 11/19/22
--- OUTSIDE RECORDS SUMMARY | 2024-05-30 20:19 | XMS_ITS | Encounter Summary ---
Author Organization [facility] Address [address] [place] [address] Care Team Providers Care Medical Record Coder Name Role Phone Unavailable Primary Care Provider [...]
--- OUTSIDE RECORDS SUMMARY | 2024-05-30 20:19 | XMS_ITS | Clinical Summary ---
Author Organization [facility] Address [address] [place] [address] Phone Care Team Providers Care Draw Press Operator Name Role Phone Provider, None Primary Care [...] Comments Blood Pressure 120/80 07/08/2015 3:05 PM FOLDER MACHINE OPERATOR Pulse 120 07/08/2015 3:05 PM FOLDER MACHINE OPERATOR Temperature 37.6 ??C (99.7 ??F) 06/19/2015 2:31 PM CS T Respiratory Rate 18 07/08/2015 3:05 PM FOLDER MACHINE OPERATOR Oxygen Saturation 98% 06/19/2015 2:31 PM FOLDER MACHINE OPERATOR Inhaled Oxygen Concentration - - Weight 105.2 kg (232 lb) 07/08/2015 3:05 PM FOLDER MACHINE OPERATOR Height 161.9 cm (5' 3.75 ) 07/08/2015 3:05 PM CS T Body Mass Index 40.14 07/08/2015 3:05 PM FOLDER MACHINE OPERATOR Plan of Treatment Health Maintenance Due Date [...] PANEL ACUTE (AHP) Routine 06/15/2015 10:14 AM FOLDER MACHINE OPERATOR STD exposure PATHOLOGY CYTOLOGY NEMATOLOGIST Routine 06/15/2015 10:06 AM FOLDER MACHINE OPERATOR Encounter for gynecological examination with abnormal finding [Z01.411] from Last 3 Months or Most Recently Relevant to Health Maintenance Results * HEPATITIS PANEL ACUTE (AHP) (06/15/2015 10:14 AM FOLDER MACHINE OPERATOR) HEPATITIS A IGM ANTIBODY NEGATIVE NEGATIVE 06/15/2015 2:23 PM [facility] HEP B CORE AB (IGM) NEGATIVE NEGATIVE 06/15/2015 2:23 PM [facility] HEPATITIS B SURFACE ANTIGEN NEGATIVE NEGATIVE 06/15/2015 2:23 PM [facility] HCV QUALITATIVE Negative Negative 06/15/2015 2:23 PM [facility] DMH HBsAG CONFIRMATION NEGATIVE 06/15/2015 2:23 PM [facility] Blood specimen (specimen) Venipuncture / Unknown 06/15/2015 10:14 AM [facility] 06/15/2015 10:14 AM [facility] Narrative [facility] - 06/15/2015 2:23 PM FOLDER MACHINE OPERATOR Indices not performed, result filed to complete Auto-Verification requirement us Jazmín Amezcua APRN, IMMIGRATION PARALEGAL HEMATOLOGY ORDERABLES Final Result [address] [address] * PATHOLOGY CYTOLOGY NEMATOLOGIST (06/15/2015 10:06 AM FOLDER MACHINE OPERATOR) SPECIMEN ADEQUACY Satisfactory for evaluation, absence of endocervical component 06/16/2015 10:28 AM [facility] GENERAL CATEGORY 06/16/2015 10:28 AM [facility] Comment:Negative for intraep ithelial lesion or malignancy DESCRIPTIVE DIAGNOSIS NEGATIVE FOR INTRAEPITHELIAL LESIONS OR MALIGNANCY 06/16/2015 10:28 AM [facility] Clinical Information Z01.411 STD exposure 06/16/2015 10:28 AM [facility] OTHER FINDINGS 06/16/2015 10:28 AM [facility] Comment:Acute inflammation p resent. DISCLAIMER The PAP [...] 64 unless clinically indicated. 06/16/2015 10:28 AM FOLDER MACHINE OPERATOR [facility] Case Report Gynecologic Cytology Report ? Case: [id number] ? Authorizing Provider: ??Jazmín Amezcua CNP ?Collected: ? 06/15/2015 10:06 AM ? Ordering Location: ? DMNini WHYTE MD ?Received: ?06/15/2015 01:10 PM ? First Screen: ?Tara Patel ? Rescreen: ?Gallito Rodriguez III, MD ? Specimen: ?[facility] PAP THIN LAYER, CERVIX ? 06/16/2015 10:28 AM [facility] HPV Reflex if ASCUS? Yes 06/16/2015 10:28 AM [facility] Specimen of unknown material (specimen) CERVIX UTERI STRUCTURE / Unknown 06/15/2015 10:06 AM FOLDER MACHINE OPERATOR 06/15/2015 1:10 PM FOLDER MACHINE OPERATOR us Jazmín Amezcua APRN, CNP PATHOLOGY/CYTOLOGY ORD ERABLES Final Result Performing Organization Address City/State/[facility] Co de Phone Number [facility] [address] [place] [address] from Last 3 Months or Most Recently Relevant to Health Maintenance Insurance [facility] Care Teams Draw Press Operator Relationship Specialty Start Date End Date Provider, None [place] PCP - General 10/28/19"
--- OUTSIDE RECORDS SUMMARY | 2024-05-30 20:19 | XMS_ITS | Encounter Summary ---
Author Organization [facility] Address [address] [address] Care Team Providers Care Board Member Name Role Phone No, Physician Primary Care Provider [phone] Encounter Details Date Type Department Care Team (Late st Contact Info) Description 11/19/2022 Orders Only [facility] Outpatient Center [place] [id number] [place] [address] Moriah Thorpe PA [address] [place] [address] [address] [place] [address] Social History Tobacco Use Types [...] on filedocumented in this encounter Care Teams Board Member Relationship Specialty Start Date End Date No, Physician PCP - General 11/19/22 documented as of this encounter
--- OUTSIDE RECORDS SUMMARY | 2024-05-30 20:19 | XMS_ITS | Referral Summary ---
Author Organization [address] Address [address] [place] [address] Care Team Providers Care Mobile Equipment Operator Name Role Phone No, Physician Primary Care Provider [phone] Allergies Active Allergy Reactions Criticality Noted Date [...] Treatment Not on file Insurance Care Teams Mobile Equipment Operator Relationship Specialty Start Date End Date No, Physician PCP - General 11/19/22
--- OUTSIDE RECORDS SUMMARY | 2024-05-30 20:19 | XMS_ITS | Continuity of Care Document ---
Author Organization [facility] Address [address] [place] [address] Phone Care Team Providers Care Contracts Specialist Name Role Phone Petar OD, Huy Unavailable [...] Diagnoses Date Provider Providers Copied on Encounter [facility], [address] [place] [address], [id number], [place] tel:[phone] [facility] No Information 8 Petar Son. [address] [place] [address], [id number], [place]. tel:[phone] [facility], [address] [place] [address], [id number], [place] tel:[phone] [facility] No Information 7 Petar Son. [address] [place] [address], [id number], [place]. tel:[phone] [facility], [address] [place] [address], [id number], [place] tel:[phone] [facility] headaches (chief complaint)he adaches (chief complaint) Dry eye syndrome of bilateral lacrimal glandsMyopia, bilateral 7 Petar Son. [address] [place] [address], [id number], [place]. tel:[phone] [facility], [address] [place] [address], [id number], [place] tel:[phone] [facility] No Information 5 No Information [facility], [address] [place] [address], [id number], [place] tel:[phone] [facility] No Information 5 No Information [facility], [address] [place] [address], [id number], [place] tel:[phone] [facility] No Information 5 No Information [facility], [address] [place] [address], [id number], [place] tel:[phone] [facility] no problems with vision and no complaints (chief complaint)no problems with vision and no complaints (chief complaint) Meibomian gland dysfunction 5 No Information [facility], [address] [place] [address], [id number], [place] tel:[phone] [facility] decreased vision (chief complaint) Myopia 4 No Information [facility], [address] [place] [address], [id number], [place] tel:[phone] [facility] No Information 4 No Information [facility], [address] [place] [address], [id number], [place] tel:[phone] [facility] slight decreased vision (chief complaint) Myopia 2 Nicolás Elif. [address] [place] [address], [id number], [place]. tel:[phone] [facility], [address] [place] [address], [id number], [place] tel:[phone] [facility] No Information 3 0-201 1 Sheila Llamas. [address] [place] [address], [id number], [place]. tel:[phone] [facility], [address] [place] [address], [id number], [place] tel:[phone] [facility] No Information Dec-1 0-201 0 Sheila Llamas. [address] [place] [address], [id number], [place]. tel:[phone] [facility], [address] [place] [address], [id number], [place] tel:[phone] [facility] No Information Dec-0 8-201 0 Imes Farhad. [address] [facility], [place], [place], [id number], [place]. tel:[phone] Family History Family Member Type Diagnosis Age At Onset Problem (finding) No Family history of HB P Mother Problem (finding) Alive and well Problem (finding) No Family history of Re [...] (finding) No Family history of St rabismus Payers Payer name Insurance type Covered republican [...] dysfunction - Return in [address] [facility]G for C/L Ref T & D. Related to Myopia Myopia OU. Condition : established, stable. - Eyes look healthy today; no signs of Glaucoma or ARMD OU. Optional glasses update available. Pt to follow up yearly. Pt [facility] for any questions/concerns. Educational materials provided:none needed. Related to My[facility] Related [...]
--- OUTSIDE RECORDS SUMMARY | 2024-05-30 20:20 | XMS_ITS | Encounter Summary ---
Author Organization [facility] Address [address] [address] Care Team Providers Care Cop Breaker Name Role Phone No, Physician Primary Care Provider [phone] Reason for Visit * Reason Comments UTI Urine frequency and burning Encounter Details Date Type Department Care Team (Late st Contact Info) Description 11/19/2022 11:00 AM CDT Office Visit [facility] Outpatient Center [address] [address] Moriah Thorpe PA [address] [place] [address] [address] [place], [place] [id number] Cystitis with hematuria (Primary Dx) Social History [...] worse. ??Contact your primary care doctor or [facility] if: ?? You have a fever. ?? You have white or yellow discharge from your vagina. ?? You do not feel better after 2 days of taking antibiotics. * Attachments The following attachments cannot be sent through Care Everywhere. * Urinary Tract Infection in Women (AfterCare(R) Instructions(ER/ED)) (Bulgarian) documented in this encounter Ordered Prescriptions Prescription [...] Large Ketones, ur, POC Negative Negative Specific [place], POC 1.030 1.003 - 1.030 Blood, ur, POC Moderate (A) Negative pH, ur, POC 7.0 5.0 - 8.0 Protein, ur, POC 30. (A) Negative Urobilinogen, urine, POC 0.2 0.2 - 1.0 mg/dL Nitrite, ur, POC Negative Negative Leukocytes, ur, POC Moderate (A) Negative Lot Number [id number] Disposition Treatment plan including expectations, follow up, [...] (.) MATT AMOS Comment:Testing performed by : [facility], [address] [facility], [place]., [address] Organism ESCHERICHIA COLI MATT Organism PLUS GROWTH OF CLINICALLY INSIGNIFICANT MATT. MATT Urine, clean voided 11/19/2022 12:53 PM CDT 11/19/2022 5:50 PM CDT Narrative MATT AMOS - 11/21/2022 11:23 AM CDT Testing performed by [facility] Microbiology Laboratory ([phone]) Organism Antibiotic Method Susceptibility Escherichia coli Ampicillin [...] - GENER AL ORDERABLES Final Result MATT [address] [address] Department [place] [address] * (ABNORMAL) POCT urinalysis dipstick (11/19/2022 10:54 AM CDT) Color, Urine, POC Yellow Clarity, ur, POC Clear Clear Glucose, ur, POC Negative Negative MG/DL Bilirubin, ur, POC Negative Negative, Small, Moderate, Large Ketones, ur, POC Negative Negative Specific [place], POC 1.030 1.003 - 1.030 Blood, ur, POC Moderate(A) Negative pH, ur, POC 7.0 5.0 - 8.0 Protein, ur, POC 30.(A) Negative Urobilinogen, urine, POC 0.2 0.2 - 1.0 mg/dL Nitrite, ur, POC Negative Negative Leukocytes, ur, POC Moderate(A) Negative Lot Number [id number] Urine 11/19/2022 10:5 4 AM CDT Moriah BHANDARI POINT OF CARE TEST ORDER VIARJ Final Result documented in this encounter Visit [...] 10/31/2022 added in this encounter Care Teams Cop Breaker Relationship Specialty Start Date End Date No, Physician PCP - General 11/19/22 documented as of this encounter
== END 2024-05-23 08:49 | disposition left against medical advice (07) ==
LOC: ANHED 08:47
PROVIDERS: Emergency Provider Emergency Medicine; PCP Physician Assistant
DX: M79.621 Pain in right upper arm (principal)
CPT/HCPCS: 93005; 99199